=== PATIENT | male | born 1985 | race African-American/Black ===

== ENCOUNTER 2017-01-28 18:41 | Emergency (ER) | payer BC, OTHER ==
[2017-01-28 18:57] VITALS: BP 150/90; BMI 22.8
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
== END 2017-01-28 20:25 | disposition home or self-care (01) ==
LOC: ER 19:05
DX: M54.5 Low back pain (principal); V87.7XXA Person injured in collision between other specified motor vehicles (traffic), initial encounter
CPT/HCPCS: 72072; 72125; 99282; 99283

== ENCOUNTER 2017-02-14 16:23 | Emergency (ER) | payer SELFPAY ==
[2017-02-14 16:34] VITALS: BP 146/88; BMI 23.7
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
== END 2017-02-14 17:28 | disposition home or self-care (01) ==
LOC: ER 16:43
DX: T18.9XXA Foreign body of alimentary tract, part unspecified, initial encounter (principal)
CPT/HCPCS: 99281; 99282

== ENCOUNTER 2017-07-16 03:16 | Emergency (ER) | payer SELFPAY ==
[2017-07-16 03:31] VITALS: BP 158/94; BMI 23.7
--- NOTE | 2017-07-16 03:55 | DR.GENAD ---
HPI - PCP Primary Care Physician: DON - Complaint/Symptoms Chief Complaint Doctors Comments: Patient admits to stomach pain for three days associated with nausea. Denies fever or diarrhea. He also states that he has back pain mid low back. Chief Complaint:: ABD PAIN BACK PAIN Self Treatment fo Chief Complaint: ZANTAC - Source History Provided: Patient - Mode of Arrival Mode of Arrival: Ambulatory - Timing Onset of Chief Complaint: 07/16/17 PMH - PMH Past Medical History: Yes Past Medical History: Anxiety, Depression, GERD, Hypertension Past Surgical History: Yes Surgical History: Other - Family History History of Family Medical Conditions: Yes Family Medical History: Diabetes Mellitus, Cancer, [place], Hypertension - Social History Does patient currently use any type of tobacco product: Yes Have you used tobacco products in the last 12 months: Yes Type of Tobacco Use: Cigarettes Alcohol Use: None Do you use any recreational Drugs:: No Lives With: Alone Lives Where: Home - infectious screening In the last 2 months have you had wt loss of >10#?: NO Have you had fever, night sweats or hemotysis?: No Have you traveled outside the country in the last 6 months?: No Isolation: Standard ROS - Review of Systems Constitutional: No Symptoms Reported Eyes: No Symptoms Reported ENTM: No Symptoms Reported Respiratoy: No Symptoms Reported Cardiovascular: No Symptoms Reported Gastrointestinal/Abdominal: See HPI, Abdominal Pain Genitourinary: No Symptoms Reported Neurological: No Symptoms Reported Musculoskeletal: No Symptoms Reported Integumentary: No Symptoms Reported Hematologic/Lymphatic: No Symptoms Reported Endocrine: No Symptoms Reported Psychiatric: No Symptoms Reported All Other Systems: Reviewed and Negative PE - Vital Signs Vitals: Temperature 98.4 F Pulse Rate 68 Respiratory Rate 16 Blood Pressure 158/94 O2 Sat by Pulse Oximetry 100 - General Limitations: No Limitations General Appearance: Alert, In No Apparent Distress - Head Head Exam: Normal Inspection, Atraumatic - Eyes Eye exam: Normal Appearance, PERRL, EOMI - ENT ENT Exam: Normal Exam External Ear Exam: Normal External Inspection TM/Canal Exam: Bilateral Normal Nose Exam: Normal Nose Exam Mouth Exam: Normal Inspection Throat Exam: Normal Inspection - Neck Neck Exam: Normal Inspection, Full ROM - Chest Chest Inspection: Normal Inspection - Respiratory Respiratory Exam: Normal Lung Sounds Bilat Respiratory Exam: Bilateral Clear to Auscultation - Cardiovascular Cardiovascular Exam: Regular Rate, Normal Rhythm - Abdominal Exam Abdominal Exam: Normal Inspection, Tenderness Abdominal Tenderness: Diffuse - Extremities Extremities Exam: Normal Inspection, Full ROM - Back Back Exam: Normal Inspection, Full ROM - Neurologic Neurological Exam: Alert, Oriented X3, CN II-XII Intact - Psychiatric Psychiatric Exam: Normal Affect - Skin Skin Exam: Warm, Dry, Intact ROR - XRAY XRAY Interpreted by: Radiologist (Abdo: There is moderate constipation. The bowel gas pattern is otherwise normal. No free air or pneumatosis. No pathological soft tissue mass or calcification can be observed. The bony structures are grossly intact. Impression.Moderate constipation) - Diagnosis Discharge Problem: moderate constipation - Discharge Plan Condition: Stable - Follow ups/Referrals Follow ups/Referrals: NFD,None [Primary Care Provider] - 3 days - Instructions
[2017-07-16] MEDS ORDERED: PHENERGAN INJ 25 MG IV ONE (03:58)
[2017-07-16] MEDS ORDERED: TORADOL 30 MG VIAL IVP ONE (03:59)
[2017-07-16] MEDS ORDERED: NS 1000 ML 1,000 ML IV SCH (04:00)
[2017-07-16] MEDS ORDERED: TORADOL 30 MG VIAL ONE (04:02)
[2017-07-16] MEDS ORDERED: NS 1000 ML 1,000 ML ONE (04:02)
[2017-07-16] MEDS ORDERED: PHENERGAN INJ 25 MG ONE (04:02)
[2017-07-16 04:14] LABS: BASOPHILS % (AUTO) 0.7 % (0.2-1.0); EOSINOPHILS # (AUTO) 0.2 x10^3/uL (0.0-0.2); EOSINOPHILS % (AUTO) 2.7 % (0.9-2.9); HEMATOCRIT 40.7 % (42.0-54.0); HEMOGLOBIN 13.8 g/dL (13.5-18.0); LYMPHOCYTES # (AUTO) 1.4 X10^3/uL (1.3-2.9); MEAN CORPUSCULAR HEMOGLOBIN 29.5 pg (27.0-34.0); MEAN CORPUSCULAR HGB CONC 33.8 g/dL (33.0-35.0); MEAN CORPUSCULAR VOLUME 87.1 fL (80.0-100.0); MEAN PLATELET VOLUME 7.6 fL (7.4-11.0); MONOCYTES # (AUTO) 0.4 x10^3/uL (0.3-0.8); MONOCYTES % (AUTO) 5.9 % (0.0-13.0); NEUTROPHILS # (AUTO) 4.5 x10^3/uL (2.2-4.8); NEUTROPHILS % (AUTO) 68.7 % (42.0-75.0); PLATELET COUNT 251 X10^3/uL (150.0-450.0); RED BLOOD COUNT 4.68 X10^6/uL (4.7-6.0); RED CELL DISTRIBUTION WIDTH 13.5 % (11.6-16.5); WHITE BLOOD COUNT 6.5 X10^3/uL (3.6-10.0)
[2017-07-16 04:20] LABS: AMYLASE 69 Units/L (25-115); BLOOD UREA NITROGEN 8 mg/dL (7-18); CALCIUM 8.2 mg/dL (8.5-10.1); CARBON DIOXIDE 26.9 mmol/L (21-32); CHLORIDE 106 mmol/L (98-107); CREATININE 1.26 mg/dL (0.70-1.30); LIPASE 158 Units/L (73-393); SODIUM 143 mmol/L (136-145); eGFR BLACK RACES > 60 (>60); eGFR NON BLACK RACES > 60 (>60)
--- NOTE | 2017-07-16 04:33 | RAD ---
KUB Indication: Abdominal pain Comparison: None available Findings: There is moderate constipation. The bowel gas pattern is otherwise normal. No free air or pneumatosis . No pathological soft tissue mass or calcification can be observed. The bony structures are grossl y intact. IMPRESSION: Moderate constipation. Reported By:
[2017-07-16] MEDS ORDERED: K-DUR TAB 20 MEQ PO ONE ×2 (05:28→05:39)
== END 2017-07-16 05:45 | disposition home or self-care (01) ==
LOC: ER 03:16
DX: K59.09 Other constipation (principal)
CPT/HCPCS: 36415; 74000; 80048; 82150; 83690; 85025; 86140; 96365; 96374; 96375; 99283; A4222; J1885; J2550

== ENCOUNTER 2017-12-29 12:33 | Emergency (ER) | payer BC ==
[2017-12-29 12:36] VITALS: BP 140/78; BMI 21.1
[2017-12-29] MEDS ORDERED: NS 1000 ML 1,000 ML IV ONE (12:59)
[2017-12-29] MEDS ORDERED: TORADOL 30 MG VIAL IVP ONE (12:59)
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
[2017-12-29] MEDS ORDERED: NS 1000 ML 1,000 ML ONE (13:08)
[2017-12-29] MEDS ORDERED: TORADOL 30 MG VIAL ONE (13:08)
--- NOTE | 2017-12-29 13:30 | CT ---
HISTORY: Right flank pain,. Stomach running off since Thursday night. Study: CT abdomen and pelvis without IV or contrast Comparison: 09/16/2016. Technique: Multiple axial images of the abdomen and pelvis were obtained from the lung bases to the pubic symphy sis without the administration of IV or oral contrast. Coronal and sagittal images are also reviewed . Dose reduction techniques utilized automatic exposure control. Findings: The visualized portions of the lung bases are unremarkable. The liver, spleen, pancreas, kidneys, an d adrenal glands are unremarkable in their CT appearance. The gallbladder is unremarkable in its CT a ppearance. No significant mesenteric lymphadenopathy or stranding can be observed. No free fluid or free air is seen within the abdomen. No bowel wall thickening or bowel dilatation is present. The a ppendix is normal. There is an abundance of stool present throughout the colon. No evidence of divert iculosis is seen. The colon is unremarkable. Specifically, there is no diverticulosis noted within t he sigmoid colon. The urinary bladder is grossly unremarkable. The bony structures are grossly intac t. IMPRESSION: 1. Negative CT of the abdomen and pelvis. Reported By:
[2017-12-29 13:34] LABS: BASOPHILS # (AUTO) 0.1 X10^3/uL (0.0-0.1); BASOPHILS % (AUTO) 1.4 % (0.2-1.0); EOSINOPHILS % (AUTO) 0.3 % (0.9-2.9); HEMATOCRIT 50.9 % (42.0-54.0); HEMOGLOBIN 17.5 g/dL (13.5-18.0); LYMPHOCYTES # (AUTO) 1.7 X10^3/uL (1.3-2.9); LYMPHOCYTES % (AUTO) 22.6 % (21.0-51.0); MEAN CORPUSCULAR HEMOGLOBIN 29.2 pg (27.0-34.0); MEAN CORPUSCULAR HGB CONC 34.4 g/dL (33.0-35.0); MEAN CORPUSCULAR VOLUME 84.8 fL (80.0-100.0); MEAN PLATELET VOLUME 8.1 fL (7.4-11.0); MONOCYTES # (AUTO) 0.7 x10^3/uL (0.3-0.8); MONOCYTES % (AUTO) 9.7 % (0.0-13.0); NEUTROPHILS # (AUTO) 4.9 x10^3/uL (2.2-4.8); PLATELET COUNT 251 X10^3/uL (150.0-450.0); RED CELL DISTRIBUTION WIDTH 13.8 % (11.6-16.5); WHITE BLOOD COUNT 7.4 X10^3/uL (3.6-10.0)
[2017-12-29 13:42] LABS: ALANINE AMINOTRANSFERASE 58 Units/L (12-78); ALBUMIN 4.6 g/dL (3.4-5.0); ALKALINE PHOSPHATASE 113 Units/L (46-116); ASPARTATE AMINO TRANSFERASE 39 Units/L (15-37); BLOOD UREA NITROGEN 21 mg/dL (7-18); CALCIUM 8.7 mg/dL (8.5-10.1); CHLORIDE 100 mmol/L (98-107); CREATININE 1.22 mg/dL (0.70-1.30); SODIUM 138 mmol/L (136-145); TOTAL PROTEIN 8.3 g/dL (6.4-8.2); eGFR BLACK RACES > 60 (>60); eGFR NON BLACK RACES > 60 (>60)
[2017-12-29 13:56] LABS: BILIRUBIN,URINE NEGATIVE (NEGATIVE); BLOOD/HEMOGLOBIN,URINE 2+ (NEGATIVE); GLUCOSE, URINE NEGATIVE (NEGATIVE); KETONES,URINE 4+ (NEGATIVE); LEUKOCYTE ESTERASE ,URINE 1+ (NEGATIVE); NITRITES,URINE NEGATIVE (NEGATIVE); PROTEIN,URINE 2+ (NEGATIVE); UROBILINOGEN,URINE 2+ (NORMAL)
[2017-12-29 14:13] LABS: APPEARANCE,URINE SLIGHTLY HAZY (CLEAR); BACTERIA,URINE 1+ /HPF (NEGATIVE); COLOR,URINE DARK YELLOW (YELLOW); HYALINE CASTS, URINE FEW /LPF (NEGATIVE); MUCUS,URINE MANY /HPF (NEGATIVE); SQUAMOUS EPITHELIAL CELL,UR FEW /HPF (NEGATIVE)
== END 2017-12-29 14:57 | disposition home or self-care (01) ==
LOC: ER 12:39
DX: R19.7 Diarrhea, unspecified (principal); N39.0 Urinary tract infection, site not specified; R10.84 Generalized abdominal pain
CPT/HCPCS: 36415; 74176; 80053; 81001; 85025; 96365; 96374; 99282; 99283; A4222; J1885

== ENCOUNTER 2023-12-25 03:08 | Observation (INO) ==
[2023-12-25 04:06] LABS: STREP A BY PCR NOT DETECTED (NOT DETECT)
--- NOTE | 2023-12-25 04:24 | DR.SOBA ---
HPI Time Seen Time Seen by Provider: 12/25/23 03:35 Complaints Chief Complaint Doctors Comments: Patient was evaluated in the ED yesterday and was diagnosed with pneumonia. Patient has had a productive cough x 1 week and was given an Rx for doxycycline 100mg po bid, prednisone,tessalon perles. Silverio sloan did not get his prescriptions filled and presents because his symptoms have persisted. Patient's CXR from 12/24/2023 revealed bilateral lower lobe pneumonia. Patient states he has had subjective fever. Patient denies:sob,chest pain,abdl pain,wheezing,h/o asthma,h/o COPD. Chief Complaint:: PT WAS SEEN IN ER YESTERDAY FOR SOB,HEADACHE PT WAS GIVEN ANTIBIOTICS, BUT STATES HE CANNOT AFFORD THEM. STATES HE JUST FEELS WORSE AND ITS GETTING HARDER TO BREATHE. 02 SAT IN TRIAGE 96 AND PT IN NO DISTRESS COVID-19 Coronavirus risk:travel/contact w/high risk person: No Source History Provided: Patient Mode of Arrival Mode of Arrival: Ambulatory Timing Onset of Chief Complaint: 12/24/23 PMH PMH Past Medical History: Yes Past Medical History: Anxiety, Asthma, Depression, Diabetes, Dyslipidemia, Migraines, Hypertension, Kidney Stones and Schizophrenia Past Surgical History: Yes Surgical History: Ortho Surgery Family History History of Family Medical Conditions: No Family Medical History: Diabetes Mellitus, Cancer, [place], Coronary Artery Disease and Hypertension Social History Do you use any recreational Drugs:: No Travel Risk Coronavirus risk:travel/contact w/high risk person: No Infectious screening Have you traveled outside the country in the last 6 months?: No Isolation: Standard ROS Review of Systems Constitutional: Malaise Eyes: No Symptoms Reported ENTM: No Symptoms Reported Respiratoy: Productive Cough Cardiovascular: Palpitations Gastrointestinal/Abdominal: No Symptoms Reported Genitourinary: No Symptoms Reported Neurological: No Symptoms Reported Musculoskeletal: No Symptoms Reported Integumentary: No Symptoms Reported Hematologic/Lymphatic: No Symptoms Reported Endocrine: No Symptoms Reported Psychiatric: No Symptoms Reported All Other Systems: Reviewed and Negative PE Vital Signs Vitals: Vital Signs Temperature 98.2 F Temperature 98.6 F Pulse Rate 110 Respiratory Rate 20 Respiratory Rate 22 Respiratory Rate 24 Blood Pressure [Right Arm] 114/70 Blood Pressure 165/105 O2 Sat by Pulse Oximetry 96 O2 Sat by Pulse Oximetry 96 General Limitations: No Limitations General Appearance: Alert and In No Apparent Distress Head Head Exam: Normal Inspection Eyes Eye exam: Normal Appearance ENT ENT Exam: Normal Exam Neck Neck Exam: Normal Inspection Chest Chest Inspection: Normal Inspection Respiratory Respiratory Exam: Normal Lung Sounds Bilat Respiratory Exam: Bilateral: Decreased Breath Sounds Cardiovascular Cardiovascular Exam: Regular Rate and Normal Rhythm Abdominal Exam Abdominal Exam: Normal Inspection, Normal Bowel Sounds and Soft Extremities Extremities Exam: Normal Inspection Back Back Exam: Normal Inspection Neurologic Neurological Exam: Alert and Oriented X3 Psychiatric Psychiatric Exam: Normal Affect and Normal Mood Skin Skin Exam: Warm, Dry, Intact and Normal Color MDM Differential Diagnosis Differential Diagnosis: Bronchitis and Pneumonia Differential Diagnosis Comment:: DDx: electrolyte disorder COURSE Treatment Treatment: Patient was brought to an exam room. Iv access was initiated and labs and tests were ordered. Patient complained of a headache and was given Tylenol 1 g p.o., and he was tachycardic and was given normal saline 500 mL IV bolus. Patient was also given Zofran 400 mg IV for nausea. Patient's labs and tests were reviewed: His CMP was stable, WBC 11.9, COVID panel is negative, strep is negative, ABG on room air: PH7.45/PC02 39/P02 49/HC03 27.1/02SAT 86%. Patient was placed on 2 L O2 nasal cannula for his hypoxemia, he was given prednisone 20 mg p.o., and Tessalon Perles 200 mg p.o. Discussed case with Dr. Romano. He would like a CTA chest ordered, Zosyn and azithromycin administered for the pneumonia, Tessalon Perles will be continued, and patient will receive Solu-Medrol 80 mg IV every 8. Urinalysis was obtained, urine culture is pending and urine drug screen is pending. Patient will be admitted ops to a telemetry floor. Patient had a blood pressure of 165/101 and cannot remember his clonidine dose. Dr. Romano stated that he wanted to observe patient's blood pressure during the admission.VS at time of Admission: Temp 98.2/BP 114/70/HR 69/02 sat 94-96% (on 2 LNC). Patient has cely stable in the ED. ROR Labs Reviewed 12/25/23 04:41 12/25/23 05:16 Laboratory: WBC 11.9 X10^3/uL (3.6-10.0) H 12/25/23 04:41 RBC 5.65 X10^6/uL (4.7-6.0) 12/25/23 04:41 Hgb 16.4 g/dL (13.5-18.0) 12/25/23 04:41 Hct 49.7 % (42.0-54.0) 12/25/23 04:41 MCV 87.9 fL (80.0-100.0) 12/25/23 04:41 MCH 28.9 pg (27.0-34.0) 12/25/23 04:41 MCHC 32.9 g/dL (33.0-35.0) L 12/25/23 04:41 RDW 15.5 % (11.6-16.5) 12/25/23 04:41 Plt Count 314 X10^3/uL (150.0-450.0) 12/25/23 04:41 MPV 9.1 fL (7.4-11.0) 12/25/23 04:41 Neut % (Auto) 71.2 % (42.0-75.0) 12/25/23 04:41 Lymph % (Auto) 19.4 % (21.0-51.0) L 12/25/23 04:41 Brantley % (Auto) 6.0 % (0.0-13.0) 12/25/23 04:41 Eos % (Auto) 2.2 % (0.9-2.9) 12/25/23 04:41 Baso % (Auto) 1.2 % (0.2-1.0) H 12/25/23 04:41 Neut # (Auto) 8.5 x10^3/uL (2.2-4.8) H 12/25/23 04:41 Lymph # (Auto) 2.3 X10^3/uL (1.3-2.9) 12/25/23 04:41 Brantley # (Auto) 0.7 x10^3/uL (0.3-0.8) 12/25/23 04:41 Eos # (Auto) 0.3 x10^3/uL (0.0-0.2) H 12/25/23 04:41 Baso # (Auto) 0.1 X10^3/uL (0.0-0.1) 12/25/23 04:41 Absolute Nucleated RBC 0.0 /100WBC 12/25/23 04:41 Sample Site Lr 12/25/23 06:40 ABG pH 7.450 (7.35-7.45) 12/25/23 06:40 ABG pCO2 39.0 mmHg (35.0-45.0) 12/25/23 06:40 ABG pO2 49.0 mmHg (80.0-100.0) L* 12/25/23 06:40 ABG HCO3 27.1 mmol/L (22-26) H 12/25/23 06:40 ABG O2 Saturation 86.0 % (90-100) L 12/25/23 06:40 ABG Base Excess 3.0 mmol/L (-2.0-2.0) H 12/25/23 06:40 Tristan Test Pos 12/25/23 06:40 A-a Gradient 52.0 mmHg 12/25/23 06:40 FiO2 21.0 12/25/23 06:40 Blood Gas Comments John well ae 12/25/23 06:40 Sodium 142 mmol/L (136-145) 12/25/23 05:16 Corrected Sodium 143 mmol/L (136-145) 12/25/23 05:16 Potassium 3.7 mmol/L (3.5-5.1) 12/25/23 05:16 Chloride 106 mmol/L (98-107) 12/25/23 05:16 Carbon Dioxide 23.2 mmol/L (21-32) 12/25/23 05:16 BUN 9 mg/dL (7-18) 12/25/23 05:16 Creatinine 1.07 mg/dL (0.70-1.30) 12/25/23 05:16 Est GFR (MDRD) Af Amer > 60 (>60) 12/25/23 05:16 Est GFR (MDRD) Non-Af > 60 (>60) 12/25/23 05:16 Glucose 123 mg/dL (65-99) H 12/25/23 05:16 Calcium 8.2 mg/dL (8.5-10.1) L 12/25/23 05:16 Corrected Calcium TNP 12/25/23 05:16 Total Bilirubin 0.60 mg/dL (0.2-1.0) 12/25/23 05:16 AST 31 Units/L (15-37) 12/25/23 05:16 ALT 77 Units/L (12-78) 12/25/23 05:16 Alkaline Phosphatase 109 Units/L (46-116) 12/25/23 05:16 Total Protein 6.9 g/dL (6.4-8.2) 12/25/23 05:16 Albumin 3.6 g/dL (3.4-5.0) 12/25/23 05:16 Globulin 3.3 g/dL (2.5-4.5) 12/25/23 05:16 Albumin/Globulin Ratio 1.1 Ratio (1.1-2.1) 12/25/23 05:16 SARS-CoV-2 (PCR) Negative (NEGATIVE) 12/25/23 03:33 Influenza Type A (PCR) Negative (NEGATIVE) 12/25/23 03:33 Influenza Type B (PCR) Negative (NEGATIVE) 12/25/23 03:33 RSV (PCR) Negative (NEGATIVE) 12/25/23 03:33 S. pyogenes (TEM-PCR) Not detected (NOT DETECT) 12/25/23 03:33 Opioid Opioid Risk Tool Age (Josias box if 16-45): Yes History of Preadolescent Sexual Abuse: No Total: 1 Total Score Risk Category: Low Risk Copyright: Martinez MARTINEZ predicting aberrant behaviors Discharge Plan Diagnosis Discharge Problem: Pneumonia, Hypoxemia, Malignant hypertension, Bilateral pleural effusion Discharge Plan Patient Disposition: 09 ADMITTED INPATIENT Condition: Stable Prescriptions: No Action amoxicillin 875 mg tablet 875 mg PO BID Qty: 20 0RF benzonatate 200 mg capsule 200 mg PO TID PRN (Reason: cough) Qty: 20 0RF doxycycline hyclate 100 mg capsule 100 mg PO BID 10 Days Qty: 20 0RF prednisone 20 mg tablet 20 mg PO BID 5 Days Qty: 10 0RF benzonatate 200 mg capsule 200 mg PO TID PRN (Reason: cough) 7 Days Qty: 20 0RF Health Concerns: Post Hospitalization: new medications and changes needed to prevent readmission or further decline. Pt educated and given instructions on all concerns. Plan of Treatment: Continue with present treatment and follow up plan. Pt is to keep follow up appointment as instructed and take medications as ordered. Orders to Discharge Patient Discharge Orders: Transfer (Routine); Ordered 12/25/23 Ordered By: Louisa Mata Follow ups/Referrals Follow ups/Referrals: NFD,None [Primary Care Provider] - 3 days Instructions Stand Alone Forms: Post Hospital Follow Up Care
[2023-12-25] MEDS ORDERED: TYLENOL 500 MG TAB EXTRA STRENGTH PO ONE (04:31)
[2023-12-25] MEDS ORDERED: NS 500 ML IV 500 ML IV ONE (04:37)
[2023-12-25] MEDS: TYLENOL 500 MG TAB EXTRA STRENGTH PO ONE (05:06)
[2023-12-25] MEDS: NS 500 ML IV 500 ML IV ONE (05:06)
[2023-12-25 05:07] LABS: BASOPHILS # (AUTO) 0.1 X10^3/uL (0.0-0.1); BASOPHILS % (AUTO) 1.2 % (0.2-1.0); EOSINOPHILS # (AUTO) 0.3 x10^3/uL (0.0-0.2); EOSINOPHILS % (AUTO) 2.2 % (0.9-2.9); HEMATOCRIT 49.7 % (42.0-54.0); HEMOGLOBIN 16.4 g/dL (13.5-18.0); LYMPHOCYTES # (AUTO) 2.3 X10^3/uL (1.3-2.9); LYMPHOCYTES % (AUTO) 19.4 % (21.0-51.0); MEAN CORPUSCULAR HEMOGLOBIN 28.9 pg (27.0-34.0); MEAN CORPUSCULAR HGB CONC 32.9 g/dL (33.0-35.0); MEAN CORPUSCULAR VOLUME 87.9 fL (80.0-100.0); MEAN PLATELET VOLUME 9.1 fL (7.4-11.0); MONOCYTES # (AUTO) 0.7 x10^3/uL (0.3-0.8); NEUTROPHILS # (AUTO) 8.5 x10^3/uL (2.2-4.8); NEUTROPHILS % (AUTO) 71.2 % (42.0-75.0); PLATELET COUNT 314 X10^3/uL (150.0-450.0); RED BLOOD COUNT 5.65 X10^6/uL (4.7-6.0); RED CELL DISTRIBUTION WIDTH 15.5 % (11.6-16.5); WHITE BLOOD COUNT 11.9 X10^3/uL (3.6-10.0)
[2023-12-25] MEDS ORDERED: ZOFRAN INJ 4 MG VIAL ONE (05:09)
[2023-12-25] MEDS: ZOFRAN INJ 4 MG VIAL IVP ONE (05:17)
[2023-12-25 05:35] LABS: ALANINE AMINOTRANSFERASE 77 Units/L (12-78); ALBUMIN 3.6 g/dL (3.4-5.0); ALKALINE PHOSPHATASE 109 Units/L (46-116); ASPARTATE AMINO TRANSFERASE 31 Units/L (15-37); BLOOD UREA NITROGEN 9 mg/dL (7-18); CALCIUM 8.2 mg/dL (8.5-10.1); CARBON DIOXIDE 23.2 mmol/L (21-32); CHLORIDE 106 mmol/L (98-107); COR NA(FOR HYPERGLY) 143 mmol/L (136-145); CREATININE 1.07 mg/dL (0.70-1.30); GLUCOSE 123 mg/dL (65-99); POTASSIUM 3.7 mmol/L (3.5-5.1); SODIUM 142 mmol/L (136-145); TOTAL PROTEIN 6.9 g/dL (6.4-8.2); eGFR NON BLACK RACES > 60 (>60)
[2023-12-25] MEDS ORDERED: NS 100 ML IV 100 ML ONE (05:51)
[2023-12-25] MEDS ORDERED: ROCEPHIN VIAL 2 GRAMS ONE (05:51)
[2023-12-25] MEDS: ROCEPHIN VIAL 2 GRAMS 2 G in NS 100 ML IV 100 ML IV ONE (05:56)
[2023-12-25] MEDS ORDERED: DUONEB 0.5 MG/3 MG (3 mL) NEB ONE (06:45)
[2023-12-25 06:47] LABS: ABG ALLEN TEST POS; ABG HCO3 27.1 mmol/L (22-26)
[2023-12-25] MEDS: DUONEB 0.5 MG/3 MG (3 mL) NEB ONE (06:59)
[2023-12-25] MEDS ORDERED: TESSALON PERLES PO ONE (07:45)
[2023-12-25] MEDS ORDERED: PREDNISONE TAB 20 MG PO ONE (07:45)
[2023-12-25] MEDS: PREDNISONE TAB 20 MG PO ONE (07:51)
[2023-12-25] MEDS: TESSALON PERLES PO ONE (07:52)
[2023-12-25] MEDS: OMNIPAQUE 350 mg/mL 100 mL BTL 100 ML ONE (08:14)
--- NOTE | 2023-12-25 09:00 | CT ---
EXAM:CTA, CHESTHISTORY:HYPOXIACOMPARISON:Chest radiograph dated 12/24 2019.TECHNIQUE:Multiple axial images of the chest were obtained from the thoracic inlet to the upper abdomen after the administration of IV contrast. 3D reconstructions utilizing axial MIPS imaging was performed and reviewed. Dose reduction techniques including Automated Exposure Control (AEC) and adjustment of mA and kV were utilized.FINDINGS:There are no filling defects through the segmental pulmonary artery level bilaterally to suggest acute pulmonary thromboembolic disease. The main pulmonary artery is normal in size. The heart is normal in size with left ventricular prominence. There is no pericardial effusion. The thoracic aorta and included portions of the upper abdominal aorta are normal in contour without aneurysmal dilatation or periaortic stranding. The included portions of the upper abdomen are grossly unremarkable. There are prominent mediastinal and bilateral hilar lymph nodes which may be reactive. There is no axillary lymphadenopathy identified. The included portions of the thyroid are grossly unremarkable. Evaluation of the lung parenchyma demonstrates scattered ground-glass opacities and associated consolidative changes throughout both lungs. There are small bilateral pleural effusions, [id number]. The bony thorax is grossly intact.IMPRESSION:1. No acute pulmonary thromboembolic disease through the segmental pulmonary artery level bilaterally.2. Bilateral ground-glass opacities and associated consolidative changes consistent with pneumonia, possibly viral and/or atypical.3. Small bilateral pleural effusions.4. Probable reactive mediastinal and bilateral hilar lymph nodes.5. Left ventricular prominence of the heart.THIS IS AN ELECTRONICALLY VERIFIED FINAL REPORT12/25/2023 8:57 AM - Electronically signed by Rolly Guido MD
--- NOTE | 2023-12-25 09:30 | DR.SOBA ---
HPI Time Seen Time Seen by Provider: 12/25/23 03:35 Complaints Chief Complaint:: PT WAS SEEN IN ER YESTERDAY FOR SOB,HEADACHE PT WAS GIVEN ANTIBIOTICS, BUT STATES HE CANNOT AFFORD THEM. STATES HE JUST FEELS WORSE AND ITS GETTING HARDER TO BREATHE. 02 SAT IN TRIAGE 96 AND PT IN NO DISTRESS COVID-19 Coronavirus risk:travel/contact w/high risk person: No Source History Provided: Patient Mode of Arrival Mode of Arrival: Ambulatory Timing Onset of Chief Complaint: 12/24/23 PMH PMH Past Medical History: Yes Past Medical History: Anxiety, Asthma, Depression, Diabetes, Dyslipidemia, Migraines, Hypertension, Kidney Stones and Schizophrenia Past Surgical History: Yes Surgical History: Ortho Surgery Family History History of Family Medical Conditions: No Family Medical History: Diabetes Mellitus, Cancer, [place], Coronary Artery Disease and Hypertension Social History Do you use any recreational Drugs:: No Travel Risk Coronavirus risk:travel/contact w/high risk person: No Infectious screening Have you traveled outside the country in the last 6 months?: No Isolation: Standard PE Vital Signs Vitals: Vital Signs Temperature 98.2 F Temperature 98.6 F Pulse Rate 110 Respiratory Rate 20 Respiratory Rate 22 Respiratory Rate 24 Blood Pressure [Right Arm] 114/70 Blood Pressure 165/105 O2 Sat by Pulse Oximetry 96 O2 Sat by Pulse Oximetry 96 ROR Labs Reviewed 12/25/23 04:41 12/25/23 05:16 Laboratory: WBC 11.9 X10^3/uL (3.6-10.0) H 12/25/23 04:41 RBC 5.65 X10^6/uL (4.7-6.0) 12/25/23 04:41 Hgb 16.4 g/dL (13.5-18.0) 12/25/23 04:41 Hct 49.7 % (42.0-54.0) 12/25/23 04:41 MCV 87.9 fL (80.0-100.0) 12/25/23 04:41 MCH 28.9 pg (27.0-34.0) 12/25/23 04:41 MCHC 32.9 g/dL (33.0-35.0) L 12/25/23 04:41 RDW 15.5 % (11.6-16.5) 12/25/23 04:41 Plt Count 314 X10^3/uL (150.0-450.0) 12/25/23 04:41 MPV 9.1 fL (7.4-11.0) 12/25/23 04:41 Neut % (Auto) 71.2 % (42.0-75.0) 12/25/23 04:41 Lymph % (Auto) 19.4 % (21.0-51.0) L 12/25/23 04:41 [place] % (Auto) 6.0 % (0.0-13.0) 12/25/23 04:41 Eos % (Auto) 2.2 % (0.9-2.9) 12/25/23 04:41 Baso % (Auto) 1.2 % (0.2-1.0) H 12/25/23 04:41 Neut # (Auto) 8.5 x10^3/uL (2.2-4.8) H 12/25/23 04:41 Lymph # (Auto) 2.3 X10^3/uL (1.3-2.9) 12/25/23 04:41 [place] # (Auto) 0.7 x10^3/uL (0.3-0.8) 12/25/23 04:41 Eos # (Auto) 0.3 x10^3/uL (0.0-0.2) H 12/25/23 04:41 Baso # (Auto) 0.1 X10^3/uL (0.0-0.1) 12/25/23 04:41 Absolute Nucleated RBC 0.0 /100WBC 12/25/23 04:41 Sample Site Lr 12/25/23 06:40 ABG pH 7.450 (7.35-7.45) 12/25/23 06:40 ABG pCO2 39.0 mmHg (35.0-45.0) 12/25/23 06:40 ABG pO2 49.0 mmHg (80.0-100.0) L* 12/25/23 06:40 ABG HCO3 27.1 mmol/L (22-26) H 12/25/23 06:40 ABG O2 Saturation 86.0 % (90-100) L 12/25/23 06:40 ABG Base Excess 3.0 mmol/L (-2.0-2.0) H 12/25/23 06:40 Tristan Test Pos 12/25/23 06:40 A-a Gradient 52.0 mmHg 12/25/23 06:40 FiO2 21.0 12/25/23 06:40 Blood Gas Comments John well ae 12/25/23 06:40 Sodium 142 mmol/L (136-145) 12/25/23 05:16 Corrected Sodium 143 mmol/L (136-145) 12/25/23 05:16 Potassium 3.7 mmol/L (3.5-5.1) 12/25/23 05:16 Chloride 106 mmol/L (98-107) 12/25/23 05:16 Carbon Dioxide 23.2 mmol/L (21-32) 12/25/23 05:16 BUN 9 mg/dL (7-18) 12/25/23 05:16 Creatinine 1.07 mg/dL (0.70-1.30) 12/25/23 05:16 Est GFR (MDRD) Af Amer > 60 (>60) 12/25/23 05:16 Est GFR (MDRD) Non-Af > 60 (>60) 12/25/23 05:16 Glucose 123 mg/dL (65-99) H 12/25/23 05:16 Calcium 8.2 mg/dL (8.5-10.1) L 12/25/23 05:16 Corrected Calcium TNP 12/25/23 05:16 Total Bilirubin 0.60 mg/dL (0.2-1.0) 12/25/23 05:16 AST 31 Units/L (15-37) 12/25/23 05:16 ALT 77 Units/L (12-78) 12/25/23 05:16 Alkaline Phosphatase 109 Units/L (46-116) 12/25/23 05:16 Total Protein 6.9 g/dL (6.4-8.2) 12/25/23 05:16 Albumin 3.6 g/dL (3.4-5.0) 12/25/23 05:16 Globulin 3.3 g/dL (2.5-4.5) 12/25/23 05:16 Albumin/Globulin Ratio 1.1 Ratio (1.1-2.1) 12/25/23 05:16 SARS-CoV-2 (PCR) Negative (NEGATIVE) 12/25/23 03:33 Influenza Type A (PCR) Negative (NEGATIVE) 12/25/23 03:33 Influenza Type B (PCR) Negative (NEGATIVE) 12/25/23 03:33 RSV (PCR) Negative (NEGATIVE) 12/25/23 03:33 S. pyogenes (TEM-PCR) Not detected (NOT DETECT) 12/25/23 03:33 Opioid Opioid Risk Tool Age (Josias box if 16-45): Yes History of Preadolescent Sexual Abuse: No Total: 1 Total Score Risk Category: Low Risk Copyright: Martinez MARTINEZ predicting aberrant behaviors Discharge Plan Diagnosis Discharge Problem: Pneumonia, Hypoxemia, Malignant hypertension, Bilateral pleural effusion Discharge Plan Patient Disposition: ADMITTED INPATIENT Condition: Stable Prescriptions: No Action amoxicillin 875 mg tablet 875 mg PO BID Qty: 20 0RF benzonatate 200 mg capsule 200 mg PO TID PRN (Reason: cough) Qty: 20 0RF doxycycline hyclate 100 mg capsule 100 mg PO BID 10 Days Qty: 20 0RF prednisone 20 mg tablet 20 mg PO BID 5 Days Qty: 10 0RF benzonatate 200 mg capsule 200 mg PO TID PRN (Reason: cough) 7 Days Qty: 20 0RF Health Concerns: Post Hospitalization: new medications and changes needed to prevent readmission or further decline. Pt educated and given instructions on all concerns. Plan of Treatment: Continue with present treatment and follow up plan. Pt is to keep follow up appointment as instructed and take medications as ordered. Orders to Discharge Patient Discharge Orders: Transfer (Routine); Ordered 12/25/23 Ordered By: Louisa Mata Follow ups/Referrals Follow ups/Referrals: NFD,None [Primary Care Provider] - 3 days Instructions Stand Alone Forms: Post Hospital Follow Up Care
[2023-12-25] MEDS ORDERED: TESSALON PERLES PO PRN (10:04)
[2023-12-25] MEDS ORDERED: ZITHROMAX INJ 500 MG VIAL IV ONE (10:22)
[2023-12-25] MEDS ORDERED: NS 250 ML IV 250 ML IV ONE (10:24)
[2023-12-25 10:37] VITALS: BMI 29.2
[2023-12-25] MEDS: ZITHROMAX INJ 500 MG VIAL 500 MG in NS 250 ML IV 250 ML IV SCH (10:59)
[2023-12-25] MEDS: NS 250 ML IV 0 ML IV ONE (11:03)
[2023-12-25] MEDS: PROTONIX INJ 40 MG VIAL IVP SCH (11:06)
[2023-12-25] MEDS: ROBITUSSIN DM PO PRN (11:10)
[2023-12-25] MEDS: NS 1,000 ML IV 1,000 ML IV SCH (11:20)
[2023-12-25 11:56] LABS: BILIRUBIN,URINE NEGATIVE (NEGATIVE); BLOOD/HEMOGLOBIN,URINE NEGATIVE (NEGATIVE); GLUCOSE, URINE NEGATIVE (NEGATIVE); KETONES,URINE NEGATIVE (NEGATIVE); LEUKOCYTE ESTERASE ,URINE NEGATIVE (NEGATIVE); NITRITES,URINE NEGATIVE (NEGATIVE); PROTEIN,URINE 1+ (NEGATIVE); UROBILINOGEN,URINE NORMAL (NORMAL)
[2023-12-25] MEDS: ROBITUSSIN (PLAIN) PO SCH (11:59)
[2023-12-25 12:08] LABS: APPEARANCE,URINE CLEAR (CLEAR); COLOR,URINE PALE YELLOW (YELLOW)
[2023-12-25 12:09] LABS: BACTERIA,URINE TRACE /HPF (NEGATIVE); RBC,URINE 0-2 /HPF (0-3); SQUAMOUS EPITHELIAL CELL,UR NEGATIVE /HPF (NEGATIVE)
[2023-12-25] MEDS: NovoLIN R (or HumuLIN R) SUBCUT PRN (12:25)
[2023-12-25] MEDS: XOPENEX 1.25 MG/3 ML NEBULE NEB SCH (13:20)
[2023-12-25] MEDS: SOLU-Medrol 40 MG VIAL IVP SCH (13:49)
[2023-12-25] MEDS: ZOSYN VIAL 3.375 GRAMS 3.375 G in NS 100 ML IV 100 ML IV SCH (13:49)
[2023-12-25] MEDS: TYLENOL 500 MG TAB EXTRA STRENGTH PO PRN (13:51)
--- NOTE | 2023-12-25 16:38 | DR.GENAD ---
HPI Time Seen Time Seen by Provider: 12/25/23 03:35 PCP Primary Care Physician: None Complaint/Symptoms Chief Complaint Doctors Comments: 38y/o male presents with productive cough, shortness of breath. Has been ill past 2-3 weeks, was treated with amoxicillin, without help. Seen yesterday in the ER, diagnosed with pneumonia. Was unable to fill scripts, returned to the ER with worsening cough, dyspnea, body aches. Running subjective fever. Having some dry heaving, burning sensation in chest. + h/o PUD in the past. Tylenol not helping headaches, aches. Short of breath worse with coughing, exertion. Chief Complaint:: PT WAS SEEN IN ER YESTERDAY FOR SOB,HEADACHE PT WAS GIVEN ANTIBIOTICS, BUT STATES HE CANNOT AFFORD THEM. STATES HE JUST FEELS WORSE AND ITS GETTING HARDER TO BREATHE. 02 SAT IN TRIAGE 96 AND PT IN NO DISTRESS COVID-19 Coronavirus risk:travel/contact w/high risk person: No Has patient experienced Coronavirus symptoms: No Coronavirus symptoms experienced: Coughing and Shortness of Breath Nurses notes reviewed Nurses Notes Review: Yes Source History Provided: Patient Mode of Arrival Mode of Arrival: Ambulatory Timing Onset of Chief Complaint: 12/24/23 PMH PMH Past Medical History: Yes Past Medical History: Anxiety, Asthma, Depression, Diabetes, Dyslipidemia, Migraines, Hypertension, Kidney Stones and Schizophrenia Past Surgical History: No Surgical History: Ortho Surgery Family History History of Family Medical Conditions: No Family Medical History: Diabetes Mellitus, Cancer, Heart Failure and Hypertension Social History Does patient currently use any type of tobacco product: No Have you used tobacco products in the last 12 months: No Type of Tobacco Use: Cigarettes How many years tobacco product used: 20 Does any household member use tobacco: Yes Alcohol Use: Occasionally Do you use any recreational Drugs:: No Travel Risk Coronavirus risk:travel/contact w/high risk person: No Has patient experienced Coronavirus symptoms: No Coronavirus symptoms experienced: Coughing and Shortness of Breath Infectious screening Have you traveled outside the country in the last 6 months?: No Isolation: Standard ROS Review of Systems Constitutional: Fever and Weakness Eyes: No Symptoms Reported ENTM: Nose Congestion Respiratoy: Productive Cough and Short of Breath Cardiovascular: No Symptoms Reported Gastrointestinal/Abdominal: Abdominal Pain and Nausea Genitourinary: No Symptoms Reported Neurological: No Symptoms Reported Musculoskeletal: Muscle Pain Integumentary: No Symptoms Reported Hematologic/Lymphatic: No Symptoms Reported Endocrine: No Symptoms Reported Psychiatric: No Symptoms Reported All Other Systems: Reviewed and Negative PE General Limitations: No Limitations General Appearance: Alert and In No Apparent Distress Eyes Eye exam: PERRL and EOMI ENT ENT Exam: Normal Exam and Mucous Membranes Moist Nose Exam: Normal Nose Exam Throat Exam: Normal Inspection Neck Neck Exam: Normal Inspection Chest Chest Inspection: Normal Inspection Respiratory Respiratory Exam: Normal Lung Sounds Bilat Cardiovascular Cardiovascular Exam: Regular Rate, Normal Rhythm and Normal Heart Sounds Abdominal Exam Abdominal Exam: Normal Bowel Sounds, Soft and Tenderness (epigastric) Extremities Extremities Exam: Normal Inspection Neurologic Neurological Exam: Alert and Oriented X3 Skin Skin Exam: Warm and Dry COURSE Treatment Treatment: 38 y/o male with bilateral pneumonia, hypoxia. Doing better on O2. Given IV antibiotics, IV steroids. Will add IV protonix for his reflux, h/o PUD. ROR Labs Reviewed 12/28/23 05:33 12/28/23 05:33 Laboratory: 12/25/23 04:56 Blood Blood Culture - Preliminary 12/25/23 04:41 Blood Blood Culture - Preliminary WBC 11.9 X10^3/uL (3.6-10.0) H 12/25/23 04:41 RBC 5.65 X10^6/uL (4.7-6.0) 12/25/23 04:41 Hgb 16.4 g/dL (13.5-18.0) 12/25/23 04:41 Hct 49.7 % (42.0-54.0) 12/25/23 04:41 MCV 87.9 fL (80.0-100.0) 12/25/23 04:41 MCH 28.9 pg (27.0-34.0) 12/25/23 04:41 MCHC 32.9 g/dL (33.0-35.0) L 12/25/23 04:41 RDW 15.5 % (11.6-16.5) 12/25/23 04:41 Plt Count 314 X10^3/uL (150.0-450.0) 12/25/23 04:41 MPV 9.1 fL (7.4-11.0) 12/25/23 04:41 Neut % (Auto) 71.2 % (42.0-75.0) 12/25/23 04:41 Lymph % (Auto) 19.4 % (21.0-51.0) L 12/25/23 04:41 Cassia % (Auto) 6.0 % (0.0-13.0) 12/25/23 04:41 Eos % (Auto) 2.2 % (0.9-2.9) 12/25/23 04:41 Baso % (Auto) 1.2 % (0.2-1.0) H 12/25/23 04:41 Neut # (Auto) 8.5 x10^3/uL (2.2-4.8) H 12/25/23 04:41 Lymph # (Auto) 2.3 X10^3/uL (1.3-2.9) 12/25/23 04:41 Cassia # (Auto) 0.7 x10^3/uL (0.3-0.8) 12/25/23 04:41 Eos # (Auto) 0.3 x10^3/uL (0.0-0.2) H 12/25/23 04:41 Baso # (Auto) 0.1 X10^3/uL (0.0-0.1) 12/25/23 04:41 Absolute Nucleated RBC 0.0 /100WBC 12/25/23 04:41 Sample Site Lr 12/25/23 06:40 ABG pH 7.450 (7.35-7.45) 12/25/23 06:40 ABG pCO2 39.0 mmHg (35.0-45.0) 12/25/23 06:40 ABG pO2 49.0 mmHg (80.0-100.0) L* 12/25/23 06:40 ABG HCO3 27.1 mmol/L (22-26) H 12/25/23 06:40 ABG O2 Saturation 86.0 % (90-100) L 12/25/23 06:40 ABG Base Excess 3.0 mmol/L (-2.0-2.0) H 12/25/23 06:40 Tristan Test Pos 12/25/23 06:40 A-a Gradient 52.0 mmHg 12/25/23 06:40 FiO2 21.0 12/25/23 06:40 Blood Gas Comments John well ae 12/25/23 06:40 Sodium 142 mmol/L (136-145) 12/25/23 05:16 Corrected Sodium 143 mmol/L (136-145) 12/25/23 05:16 Potassium 3.7 mmol/L (3.5-5.1) 12/25/23 05:16 Chloride 106 mmol/L (98-107) 12/25/23 05:16 Carbon Dioxide 23.2 mmol/L (21-32) 12/25/23 05:16 BUN 9 mg/dL (7-18) 12/25/23 05:16 Creatinine 1.07 mg/dL (0.70-1.30) 12/25/23 05:16 Est GFR (MDRD) Af Amer > 60 (>60) 12/25/23 05:16 Est GFR (MDRD) Non-Af > 60 (>60) 12/25/23 05:16 Glucose 123 mg/dL (65-99) H 12/25/23 05:16 Calcium 8.2 mg/dL (8.5-10.1) L 12/25/23 05:16 Corrected Calcium TNP 12/25/23 05:16 Total Bilirubin 0.60 mg/dL (0.2-1.0) 12/25/23 05:16 AST 31 Units/L (15-37) 12/25/23 05:16 ALT 77 Units/L (12-78) 12/25/23 05:16 Alkaline Phosphatase 109 Units/L (46-116) 12/25/23 05:16 Total Protein 6.9 g/dL (6.4-8.2) 12/25/23 05:16 Albumin 3.6 g/dL (3.4-5.0) 12/25/23 05:16 Globulin 3.3 g/dL (2.5-4.5) 12/25/23 05:16 Albumin/Globulin Ratio 1.1 Ratio (1.1-2.1) 12/25/23 05:16 SARS-CoV-2 (PCR) Negative (NEGATIVE) 12/25/23 03:33 Influenza Type A (PCR) Negative (NEGATIVE) 12/25/23 03:33 Influenza Type B (PCR) Negative (NEGATIVE) 12/25/23 03:33 RSV (PCR) Negative (NEGATIVE) 12/25/23 03:33 Resp Viral Panel (PCR) See scanned report 12/25/23 08:10 S. pyogenes (TEM-PCR) Not detected (NOT DETECT) 12/25/23 03:33 Opioid Opioid Risk Tool Age (Josias box if 16-45): Yes History of Preadolescent Sexual Abuse: No Total: 1 Total Score Risk Category: Low Risk Copyright: Martinez MARTINEZ predicting aberrant behaviors Discharge Plan Diagnosis Discharge Problem: Pneumonia, Hypoxemia, Malignant hypertension, Bilateral pleural effusion Discharge Plan Patient Disposition: 09 ADMITTED INPATIENT Condition: Stable Orders to Discharge Patient Discharge Orders: Discharge (Routine); Ordered 12/28/23 Ordered By: WOOD JEFFERSON
[2023-12-25] MEDS ORDERED: PROTONIX INJ 40 MG VIAL IVP SCH (17:00)
[2023-12-25] MEDS: NORCO 7.5/325 MG TAB PO PRN (17:51)
[2023-12-25] MEDS: SNACK - Diabetic Appropriate PO SCH (19:27)
[2023-12-25] MEDS: PULMICORT NEB TX 0.5 MG NEB SCH (20:31)
[2023-12-26 06:06] LABS: ABG ALLEN TEST POS; ABG BASE EXCESS 1.5 mmol/L (-2.0-2.0); ABG HCO3 26.6 mmol/L (22-26)
[2023-12-26 06:30] LABS: BASOPHILS # (AUTO) 0.1 X10^3/uL (0.0-0.1); BASOPHILS % (AUTO) 0.3 % (0.2-1.0); HEMATOCRIT 43.1 % (42.0-54.0); LYMPHOCYTES # (AUTO) 1.1 X10^3/uL (1.3-2.9); LYMPHOCYTES % (AUTO) 5.9 % (21.0-51.0); MEAN CORPUSCULAR HEMOGLOBIN 28.8 pg (27.0-34.0); MEAN CORPUSCULAR HGB CONC 32.9 g/dL (33.0-35.0); MEAN CORPUSCULAR VOLUME 87.5 fL (80.0-100.0); MEAN PLATELET VOLUME 8.8 fL (7.4-11.0); MONOCYTES # (AUTO) 0.2 x10^3/uL (0.3-0.8); MONOCYTES % (AUTO) 1.3 % (0.0-13.0); NEUTROPHILS # (AUTO) 17.3 x10^3/uL (2.2-4.8); NEUTROPHILS % (AUTO) 92.5 % (42.0-75.0); PLATELET COUNT 281 X10^3/uL (150.0-450.0); RED BLOOD COUNT 4.92 X10^6/uL (4.7-6.0); RED CELL DISTRIBUTION WIDTH 15.4 % (11.6-16.5); WHITE BLOOD COUNT 18.7 X10^3/uL (3.6-10.0)
[2023-12-26 06:42] LABS: HEMOGLOBIN 14.2 g/dL (13.5-18.0)
[2023-12-26 06:49] LABS: ALANINE AMINOTRANSFERASE 62 Units/L (12-78); ALKALINE PHOSPHATASE 97 Units/L (46-116); ASPARTATE AMINO TRANSFERASE 16 Units/L (15-37); BLOOD UREA NITROGEN 12 mg/dL (7-18); CALCIUM 8.1 mg/dL (8.5-10.1); CARBON DIOXIDE 23.8 mmol/L (21-32); CHLORIDE 105 mmol/L (98-107); COR CA(FOR HYPOALB) 8.9 mg/dL (8.5-10.1); COR NA(FOR HYPERGLY) 143 mmol/L (136-145); CREATININE 1.02 mg/dL (0.70-1.30); GLUCOSE 211 mg/dL (65-99); SODIUM 140 mmol/L (136-145); TOTAL PROTEIN 6.4 g/dL (6.4-8.2); eGFR NON BLACK RACES > 60 (>60)
[2023-12-26 07:32] LABS: BAND NEUTROPHILS % 0 % (0-10); BASOPHILS % (MANUAL) 0 % (0-1); PLATELET MORPHOLOGY COMMENT NORMAL (NORMAL)
--- NOTE | 2023-12-26 08:09 | RAD ---
EXAM:AP chestHISTORY:PneumoniaCOMPARISON: 024FINDINGS:Heart size normal and unchanged. There is slight diffuse interstitial prominence as previously noted without evidence for developing consolidation, pneumothorax or pleural fluid.IMPRESSION:No change, see above.THIS IS AN ELECTRONICALLY VERIFIED FINAL REPORT12/26/2023 8:06 AM - Electronically signed by Antonino Weiner MD
--- NOTE | 2023-12-26 10:54 | DR.PROGNOT ---
HOSPITAL PROGRESS NOTE Progress Note for Day of: Progress Note Date: 12/26/23 History of Present Illness History of Present Illness: 38 y/o male admitted for bilateral pneumonia, hypoxia. Past Medical Family Social History Allergies: Allergies lisinopril Allergy (Verified 12/05/23 12:36) Vital Signs Vital Signs: Vital Signs Temperature 98.3 F Temperature 97.6 F Pulse Rate [Right Brachial] 103 Pulse Rate [Right Brachial] 104 Respiratory Rate 20 Respiratory Rate 18 Respiratory Rate 18 Respiratory Rate 20 Blood Pressure [Right Arm] 140/76 Blood Pressure [Right Arm] 136/78 O2 Sat by Pulse Oximetry 97 O2 Sat by Pulse Oximetry 98 Physical Exam Speech Pattern: Clear and Appropriate Laboratory and Diagnostics 12/26/23 06:07 12/26/23 06:07 Labs: 12/25/23 11:04 Urine,Clean Catch Urine Culture - Preliminary Laboratory WBC 18.7 X10^3/uL (3.6-10.0) H 12/26/23 06:07 RBC 4.92 X10^6/uL (4.7-6.0) 12/26/23 06:07 Hgb 14.2 g/dL (13.5-18.0) D 12/26/23 06:07 Hct 43.1 % (42.0-54.0) 12/26/23 06:07 MCV 87.5 fL (80.0-100.0) 12/26/23 06:07 MCH 28.8 pg (27.0-34.0) 12/26/23 06:07 MCHC 32.9 g/dL (33.0-35.0) L 12/26/23 06:07 RDW 15.4 % (11.6-16.5) 12/26/23 06:07 Plt Count 281 X10^3/uL (150.0-450.0) 12/26/23 06:07 Plt Count Comment Adequate (ADEQUATE) 12/26/23 06:07 MPV 8.8 fL (7.4-11.0) 12/26/23 06:07 Neut % (Auto) 92.5 % (42.0-75.0) H 12/26/23 06:07 Lymph % (Auto) 5.9 % (21.0-51.0) L 12/26/23 06:07 [place] % (Auto) 1.3 % (0.0-13.0) 12/26/23 06:07 Eos % (Auto) 0.0 % (0.9-2.9) L 12/26/23 06:07 Baso % (Auto) 0.3 % (0.2-1.0) 12/26/23 06:07 Neut # (Auto) 17.3 x10^3/uL (2.2-4.8) H 12/26/23 06:07 Lymph # (Auto) 1.1 X10^3/uL (1.3-2.9) L 12/26/23 06:07 [place] # (Auto) 0.2 x10^3/uL (0.3-0.8) L 12/26/23 06:07 Eos # (Auto) 0.0 x10^3/uL (0.0-0.2) 12/26/23 06:07 Baso # (Auto) 0.1 X10^3/uL (0.0-0.1) 12/26/23 06:07 Absolute Nucleated RBC 0.0 /100WBC 12/26/23 06:07 Total Counted 100 12/26/23 06:07 Neutrophils % (Manual) 90 % (39-76) H 12/26/23 06:07 Band Neutrophils % 0 % (0-10) 12/26/23 06:07 Lymphocytes % (Manual) 8 % (13-43) L 12/26/23 06:07 Monocytes % (Manual) 1 % (4-9) L 12/26/23 06:07 Eosinophils % (Manual) 1 % (0-6) 12/26/23 06:07 Basophils % (Manual) 0 % (0-1) 12/26/23 06:07 Plt Morphology Comment Normal (NORMAL) 12/26/23 06:07 RBC Morphology Normal (NORMAL) 12/26/23 06:07 Sample Site Rrad 12/26/23 06:06 ABG pH 7.400 (7.35-7.45) 12/26/23 06:06 ABG pCO2 43.0 mmHg (35.0-45.0) 12/26/23 06:06 ABG pO2 60.0 mmHg (80.0-100.0) L 12/26/23 06:06 ABG HCO3 26.6 mmol/L (22-26) H 12/26/23 06:06 ABG O2 Saturation 91.0 % (90-100) 12/26/23 06:06 ABG Base Excess 1.5 mmol/L (-2.0-2.0) 12/26/23 06:06 Tristan Test Pos 12/26/23 06:06 A-a Gradient 36.0 mmHg 12/26/23 06:06 FiO2 21.0 12/26/23 06:06 Blood Gas Comments John abg well-mtf 12/26/23 06:06 Sodium 140 mmol/L (136-145) 12/26/23 06:07 Corrected Sodium 143 mmol/L (136-145) 12/26/23 06:07 Potassium 4.0 mmol/L (3.5-5.1) 12/26/23 06:07 Chloride 105 mmol/L (98-107) 12/26/23 06:07 Carbon Dioxide 23.8 mmol/L (21-32) 12/26/23 06:07 BUN 12 mg/dL (7-18) 12/26/23 06:07 Creatinine 1.02 mg/dL (0.70-1.30) 12/26/23 06:07 Est GFR (MDRD) Af Amer > 60 (>60) 12/26/23 06:07 Est GFR (MDRD) Non-Af > 60 (>60) 12/26/23 06:07 Glucose 211 mg/dL (65-99) H 12/26/23 06:07 POC Glucose (mg/dL) 200 mg/dL (65-99) H 12/26/23 05:47 Calcium 8.1 mg/dL (8.5-10.1) L 12/26/23 06:07 Corrected Calcium 8.9 mg/dL (8.5-10.1) 12/26/23 06:07 Total Bilirubin 0.60 mg/dL (0.2-1.0) 12/26/23 06:07 AST 16 Units/L (15-37) 12/26/23 06:07 ALT 62 Units/L (12-78) 12/26/23 06:07 Alkaline Phosphatase 97 Units/L (46-116) 12/26/23 06:07 Total Protein 6.4 g/dL (6.4-8.2) 12/26/23 06:07 Albumin 3.0 g/dL (3.4-5.0) L 12/26/23 06:07 Globulin 3.4 g/dL (2.5-4.5) 12/26/23 06:07 Albumin/Globulin Ratio 0.9 Ratio (1.1-2.1) L 12/26/23 06:07 Specimen Type Clean catch urine 12/25/23 11:04 Urine Color Pale yellow (YELLOW) 12/25/23 11:04 Urine Appearance Clear (CLEAR) 12/25/23 11:04 Urine pH 7.0 (5.0 - 8.0) 12/25/23 11:04 Ur Specific [place] 1.010 (1.000-1.030) 12/25/23 11:04 Urine Protein 1+ (NEGATIVE) 12/25/23 11:04 Urine Glucose (UA) Negative (NEGATIVE) 12/25/23 11:04 Urine Ketones Negative (NEGATIVE) 12/25/23 11:04 Urine Blood Negative (NEGATIVE) 12/25/23 11:04 Urine Nitrite Negative (NEGATIVE) 12/25/23 11:04 Urine Bilirubin Negative (NEGATIVE) 12/25/23 11:04 Urine Urobilinogen Normal (NORMAL) 12/25/23 11:04 Ur Leukocyte Esterase Negative (NEGATIVE) 12/25/23 11:04 Urine RBC 0-2 /HPF (0-3) 12/25/23 11:04 Urine WBC 0-2 /HPF (0-5) 12/25/23 11:04 Ur Squamous Epith Cells Negative /HPF (NEGATIVE) 12/25/23 11:04 Urine Bacteria Trace /HPF (NEGATIVE) 12/25/23 11:04 Ur Culture Indicated? Yes/culture set up 12/25/23 11:04 Urine Opiates Screen Negative (NEG=<300) 12/25/23 11:04 Urine Methadone Screen Negative (NEG=<300) 12/25/23 11:04 Ur Barbiturates Screen Negative (NEG=<200) 12/25/23 11:04 Ur Phencyclidine Scrn Negative (NEG=<25) 12/25/23 11:04 Ur Amphetamines Screen Positive (NEG=<1000) 12/25/23 11:04 U Benzodiazepines Scrn Negative (NEG=<200) 12/25/23 11:04 Urine Cocaine Screen Negative (NEG=<300) 12/25/23 11:04 U Marijuana (THC) Screen Positive (NEG=<50) A 12/25/23 11:04 SARS-CoV-2 (PCR) Negative (NEGATIVE) 12/25/23 03:33 Influenza Type A (PCR) Negative (NEGATIVE) 12/25/23 03:33 Influenza Type B (PCR) Negative (NEGATIVE) 12/25/23 03:33 RSV (PCR) Negative (NEGATIVE) 12/25/23 03:33 S. pyogenes (TEM-PCR) Not detected (NOT DETECT) 12/25/23 03:33 Problem Patient Problems: Patient Problems (Updated 12/25/23 @ 09:11 by Louisa Mata) Pneumonia (Acute) J18.9 Hypoxemia (Acute) R09.02 Malignant hypertension (Acute) I10 Bilateral pleural effusion (Acute) J90
--- NOTE | 2023-12-26 11:01 | DR.PROGNOT ---
HOSPITAL PROGRESS NOTE Progress Note for Day of: Progress Note Date: 12/26/23 History of Present Illness History of Present Illness: 38 y/o male admitted for bilateral pneumonia, hypoxia. No complaints at present, doing better with po pain medicine added. Past Medical Family Social History Allergies: Allergies lisinopril Allergy (Verified 12/05/23 12:36) Vital Signs Vital Signs: Vital Signs Temperature 98.3 F Temperature 97.6 F Pulse Rate [Right Brachial] 103 Pulse Rate [Right Brachial] 104 Respiratory Rate 20 Respiratory Rate 18 Respiratory Rate 18 Respiratory Rate 20 Blood Pressure [Right Arm] 140/76 Blood Pressure [Right Arm] 136/78 O2 Sat by Pulse Oximetry 97 O2 Sat by Pulse Oximetry 98 Physical Exam Oriented: Normal Eyes: Normal Nose: Normal Respiratory: Normal Cardiovascular: Normal GI:Auscultation: Normal GI:Palpation: Normal Musculoskeletal: Normal Psychiatric: Normal Speech Pattern: Clear and Appropriate Laboratory and Diagnostics 12/26/23 06:07 12/26/23 06:07 Labs: 12/25/23 11:04 Urine,Clean Catch Urine Culture - Preliminary Laboratory WBC 18.7 X10^3/uL (3.6-10.0) H 12/26/23 06:07 RBC 4.92 X10^6/uL (4.7-6.0) 12/26/23 06:07 Hgb 14.2 g/dL (13.5-18.0) D 12/26/23 06:07 Hct 43.1 % (42.0-54.0) 12/26/23 06:07 MCV 87.5 fL (80.0-100.0) 12/26/23 06:07 MCH 28.8 pg (27.0-34.0) 12/26/23 06:07 MCHC 32.9 g/dL (33.0-35.0) L 12/26/23 06:07 RDW 15.4 % (11.6-16.5) 12/26/23 06:07 Plt Count 281 X10^3/uL (150.0-450.0) 12/26/23 06:07 Plt Count Comment Adequate (ADEQUATE) 12/26/23 06:07 MPV 8.8 fL (7.4-11.0) 12/26/23 06:07 Neut % (Auto) 92.5 % (42.0-75.0) H 12/26/23 06:07 Lymph % (Auto) 5.9 % (21.0-51.0) L 12/26/23 06:07 [place] % (Auto) 1.3 % (0.0-13.0) 12/26/23 06:07 Eos % (Auto) 0.0 % (0.9-2.9) L 12/26/23 06:07 Baso % (Auto) 0.3 % (0.2-1.0) 12/26/23 06:07 Neut # (Auto) 17.3 x10^3/uL (2.2-4.8) H 12/26/23 06:07 Lymph # (Auto) 1.1 X10^3/uL (1.3-2.9) L 12/26/23 06:07 [place] # (Auto) 0.2 x10^3/uL (0.3-0.8) L 12/26/23 06:07 Eos # (Auto) 0.0 x10^3/uL (0.0-0.2) 12/26/23 06:07 Baso # (Auto) 0.1 X10^3/uL (0.0-0.1) 12/26/23 06:07 Absolute Nucleated RBC 0.0 /100WBC 12/26/23 06:07 Total Counted 100 12/26/23 06:07 Neutrophils % (Manual) 90 % (39-76) H 12/26/23 06:07 Band Neutrophils % 0 % (0-10) 12/26/23 06:07 Lymphocytes % (Manual) 8 % (13-43) L 12/26/23 06:07 Monocytes % (Manual) 1 % (4-9) L 12/26/23 06:07 Eosinophils % (Manual) 1 % (0-6) 12/26/23 06:07 Basophils % (Manual) 0 % (0-1) 12/26/23 06:07 Plt Morphology Comment Normal (NORMAL) 12/26/23 06:07 RBC Morphology Normal (NORMAL) 12/26/23 06:07 Sample Site Rrad 12/26/23 06:06 ABG pH 7.400 (7.35-7.45) 12/26/23 06:06 ABG pCO2 43.0 mmHg (35.0-45.0) 12/26/23 06:06 ABG pO2 60.0 mmHg (80.0-100.0) L 12/26/23 06:06 ABG HCO3 26.6 mmol/L (22-26) H 12/26/23 06:06 ABG O2 Saturation 91.0 % (90-100) 12/26/23 06:06 ABG Base Excess 1.5 mmol/L (-2.0-2.0) 12/26/23 06:06 Tristan Test Pos 12/26/23 06:06 A-a Gradient 36.0 mmHg 12/26/23 06:06 FiO2 21.0 12/26/23 06:06 Blood Gas Comments John abg well-mtf 12/26/23 06:06 Sodium 140 mmol/L (136-145) 12/26/23 06:07 Corrected Sodium 143 mmol/L (136-145) 12/26/23 06:07 Potassium 4.0 mmol/L (3.5-5.1) 12/26/23 06:07 Chloride 105 mmol/L (98-107) 12/26/23 06:07 Carbon Dioxide 23.8 mmol/L (21-32) 12/26/23 06:07 BUN 12 mg/dL (7-18) 12/26/23 06:07 Creatinine 1.02 mg/dL (0.70-1.30) 12/26/23 06:07 Est GFR (MDRD) Af Amer > 60 (>60) 12/26/23 06:07 Est GFR (MDRD) Non-Af > 60 (>60) 12/26/23 06:07 Glucose 211 mg/dL (65-99) H 12/26/23 06:07 POC Glucose (mg/dL) 200 mg/dL (65-99) H 12/26/23 05:47 Calcium 8.1 mg/dL (8.5-10.1) L 12/26/23 06:07 Corrected Calcium 8.9 mg/dL (8.5-10.1) 12/26/23 06:07 Total Bilirubin 0.60 mg/dL (0.2-1.0) 12/26/23 06:07 AST 16 Units/L (15-37) 12/26/23 06:07 ALT 62 Units/L (12-78) 12/26/23 06:07 Alkaline Phosphatase 97 Units/L (46-116) 12/26/23 06:07 Total Protein 6.4 g/dL (6.4-8.2) 12/26/23 06:07 Albumin 3.0 g/dL (3.4-5.0) L 12/26/23 06:07 Globulin 3.4 g/dL (2.5-4.5) 12/26/23 06:07 Albumin/Globulin Ratio 0.9 Ratio (1.1-2.1) L 12/26/23 06:07 Specimen Type Clean catch urine 12/25/23 11:04 Urine Color Pale yellow (YELLOW) 12/25/23 11:04 Urine Appearance Clear (CLEAR) 12/25/23 11:04 Urine pH 7.0 (5.0 - 8.0) 12/25/23 11:04 Ur Specific [place] 1.010 (1.000-1.030) 12/25/23 11:04 Urine Protein 1+ (NEGATIVE) 12/25/23 11:04 Urine Glucose (UA) Negative (NEGATIVE) 12/25/23 11:04 Urine Ketones Negative (NEGATIVE) 12/25/23 11:04 Urine Blood Negative (NEGATIVE) 12/25/23 11:04 Urine Nitrite Negative (NEGATIVE) 12/25/23 11:04 Urine Bilirubin Negative (NEGATIVE) 12/25/23 11:04 Urine Urobilinogen Normal (NORMAL) 12/25/23 11:04 Ur Leukocyte Esterase Negative (NEGATIVE) 12/25/23 11:04 Urine RBC 0-2 /HPF (0-3) 12/25/23 11:04 Urine WBC 0-2 /HPF (0-5) 12/25/23 11:04 Ur Squamous Epith Cells Negative /HPF (NEGATIVE) 12/25/23 11:04 Urine Bacteria Trace /HPF (NEGATIVE) 12/25/23 11:04 Ur Culture Indicated? Yes/culture set up 12/25/23 11:04 Urine Opiates Screen Negative (NEG=<300) 12/25/23 11:04 Urine Methadone Screen Negative (NEG=<300) 12/25/23 11:04 Ur Barbiturates Screen Negative (NEG=<200) 12/25/23 11:04 Ur Phencyclidine Scrn Negative (NEG=<25) 12/25/23 11:04 Ur Amphetamines Screen Positive (NEG=<1000) 12/25/23 11:04 U Benzodiazepines Scrn Negative (NEG=<200) 12/25/23 11:04 Urine Cocaine Screen Negative (NEG=<300) 12/25/23 11:04 U Marijuana (THC) Screen Positive (NEG=<50) A 12/25/23 11:04 SARS-CoV-2 (PCR) Negative (NEGATIVE) 12/25/23 03:33 Influenza Type A (PCR) Negative (NEGATIVE) 12/25/23 03:33 Influenza Type B (PCR) Negative (NEGATIVE) 12/25/23 03:33 RSV (PCR) Negative (NEGATIVE) 12/25/23 03:33 S. pyogenes (TEM-PCR) Not detected (NOT DETECT) 12/25/23 03:33 Assessment and Plan 1: Bilateral pneumonia, hypoxia - improving. WBC increased this am, probably due to steroids. CXR this am stable, no worsening. Continue IV antibiotic. Problem Patient Problems: Patient Problems (Updated 12/25/23 @ 09:11 by Louisa Mata) Pneumonia (Acute) J18.9 Hypoxemia (Acute) R09.02 Malignant hypertension (Acute) I10 Bilateral pleural effusion (Acute) J90
[2023-12-27 05:51] LABS: BASOPHILS # (AUTO) 0.1 X10^3/uL (0.0-0.1); BASOPHILS % (AUTO) 0.3 % (0.2-1.0); HEMATOCRIT 41.7 % (42.0-54.0); HEMOGLOBIN 13.7 g/dL (13.5-18.0); MEAN CORPUSCULAR HEMOGLOBIN 28.7 pg (27.0-34.0); MEAN CORPUSCULAR HGB CONC 32.8 g/dL (33.0-35.0); MEAN CORPUSCULAR VOLUME 87.5 fL (80.0-100.0); MEAN PLATELET VOLUME 9.3 fL (7.4-11.0); MONOCYTES # (AUTO) 0.5 x10^3/uL (0.3-0.8); MONOCYTES % (AUTO) 2.3 % (0.0-13.0); NEUTROPHILS # (AUTO) 19.5 x10^3/uL (2.2-4.8); NEUTROPHILS % (AUTO) 92.4 % (42.0-75.0); PLATELET COUNT 278 X10^3/uL (150.0-450.0); RED BLOOD COUNT 4.77 X10^6/uL (4.7-6.0); RED CELL DISTRIBUTION WIDTH 15.4 % (11.6-16.5); WHITE BLOOD COUNT 21.1 X10^3/uL (3.6-10.0)
[2023-12-27 06:03] LABS: ALANINE AMINOTRANSFERASE 74 Units/L (12-78); ALKALINE PHOSPHATASE 87 Units/L (46-116); ASPARTATE AMINO TRANSFERASE 24 Units/L (15-37); BLOOD UREA NITROGEN 13 mg/dL (7-18); CALCIUM 7.8 mg/dL (8.5-10.1); CARBON DIOXIDE 25.3 mmol/L (21-32); CHLORIDE 106 mmol/L (98-107); COR CA(FOR HYPOALB) 8.6 mg/dL (8.5-10.1); COR NA(FOR HYPERGLY) 147 mmol/L (136-145); CREATININE 0.96 mg/dL (0.70-1.30); GLUCOSE 265 mg/dL (65-99); POTASSIUM 4.1 mmol/L (3.5-5.1); SODIUM 143 mmol/L (136-145); TOTAL PROTEIN 6.2 g/dL (6.4-8.2); eGFR NON BLACK RACES > 60 (>60)
[2023-12-27 06:25] LABS: BAND NEUTROPHILS % 0 % (0-10); BASOPHILS % (MANUAL) 0 % (0-1); PLATELET MORPHOLOGY COMMENT NORMAL (NORMAL)
--- NOTE | 2023-12-27 09:44 | DR.PROGNOT ---
HOSPITAL PROGRESS NOTE Progress Note for Day of: Progress Note Date: 12/27/23 History of Present Illness History of Present Illness: 38 y/o male admitted for bilateral pneumonia, hypoxia. Doing better. Not short of breath on RA. No V/D. Past Medical Family Social History Allergies: Allergies lisinopril Allergy (Verified 12/05/23 12:36) Vital Signs Vital Signs: Vital Signs Temperature 97.7 F Temperature 97.9 F Pulse Rate [Right Brachial] 104 Pulse Rate [Right Brachial] 98 Pulse Rate 105 Respiratory Rate 20 Respiratory Rate 18 Respiratory Rate 18 Respiratory Rate 20 Blood Pressure [Right Arm] 142/80 Blood Pressure [Right Arm] 117/59 O2 Sat by Pulse Oximetry 95 O2 Sat by Pulse Oximetry 97 O2 Sat by Pulse Oximetry 97 Physical Exam Oriented: Normal Eyes: Normal Nose: Normal Respiratory: Normal Cardiovascular: Normal GI:Auscultation: Normal GI:Palpation: Normal Musculoskeletal: Normal Psychiatric: Normal Speech Pattern: Clear and Appropriate Laboratory and Diagnostics 12/27/23 05:12 12/27/23 05:12 Labs: 12/25/23 04:56 Blood Blood Culture - Preliminary 12/25/23 04:41 Blood Blood Culture - Preliminary 12/25/23 11:04 Urine,Clean Catch Urine Culture - Final Laboratory WBC 21.1 X10^3/uL (3.6-10.0) H 12/27/23 05:12 RBC 4.77 X10^6/uL (4.7-6.0) 12/27/23 05:12 Hgb 13.7 g/dL (13.5-18.0) 12/27/23 05:12 Hct 41.7 % (42.0-54.0) L 12/27/23 05:12 MCV 87.5 fL (80.0-100.0) 12/27/23 05:12 MCH 28.7 pg (27.0-34.0) 12/27/23 05:12 MCHC 32.8 g/dL (33.0-35.0) L 12/27/23 05:12 RDW 15.4 % (11.6-16.5) 12/27/23 05:12 Plt Count 278 X10^3/uL (150.0-450.0) 12/27/23 05:12 Plt Count Comment Adequate (ADEQUATE) 12/27/23 05:12 MPV 9.3 fL (7.4-11.0) 12/27/23 05:12 Neut % (Auto) 92.4 % (42.0-75.0) H 12/27/23 05:12 Lymph % (Auto) 5.0 % (21.0-51.0) L 12/27/23 05:12 [place] % (Auto) 2.3 % (0.0-13.0) 12/27/23 05:12 Eos % (Auto) 0.0 % (0.9-2.9) L 12/27/23 05:12 Baso % (Auto) 0.3 % (0.2-1.0) 12/27/23 05:12 Neut # (Auto) 19.5 x10^3/uL (2.2-4.8) H 12/27/23 05:12 Lymph # (Auto) 1.0 X10^3/uL (1.3-2.9) L 12/27/23 05:12 [place] # (Auto) 0.5 x10^3/uL (0.3-0.8) 12/27/23 05:12 Eos # (Auto) 0.0 x10^3/uL (0.0-0.2) 12/27/23 05:12 Baso # (Auto) 0.1 X10^3/uL (0.0-0.1) 12/27/23 05:12 Absolute Nucleated RBC 0.0 /100WBC 12/27/23 05:12 Total Counted 100 12/27/23 05:12 Neutrophils % (Manual) 92 % (39-76) H 12/27/23 05:12 Band Neutrophils % 0 % (0-10) 12/27/23 05:12 Lymphocytes % (Manual) 7 % (13-43) L 12/27/23 05:12 Monocytes % (Manual) 1 % (4-9) L 12/27/23 05:12 Eosinophils % (Manual) 0 % (0-6) 12/27/23 05:12 Basophils % (Manual) 0 % (0-1) 12/27/23 05:12 Plt Morphology Comment Normal (NORMAL) 12/27/23 05:12 RBC Morphology Normal (NORMAL) 12/27/23 05:12 Sample Site Rrad 12/26/23 06:06 ABG pH 7.400 (7.35-7.45) 12/26/23 06:06 ABG pCO2 43.0 mmHg (35.0-45.0) 12/26/23 06:06 ABG pO2 60.0 mmHg (80.0-100.0) L 12/26/23 06:06 ABG HCO3 26.6 mmol/L (22-26) H 12/26/23 06:06 ABG O2 Saturation 91.0 % (90-100) 12/26/23 06:06 ABG Base Excess 1.5 mmol/L (-2.0-2.0) 12/26/23 06:06 Tristan Test Pos 12/26/23 06:06 A-a Gradient 36.0 mmHg 12/26/23 06:06 FiO2 21.0 12/26/23 06:06 Blood Gas Comments John abg well-mtf 12/26/23 06:06 Sodium 143 mmol/L (136-145) 12/27/23 05:12 Corrected Sodium 147 mmol/L (136-145) H 12/27/23 05:12 Potassium 4.1 mmol/L (3.5-5.1) 12/27/23 05:12 Chloride 106 mmol/L (98-107) 12/27/23 05:12 Carbon Dioxide 25.3 mmol/L (21-32) 12/27/23 05:12 BUN 13 mg/dL (7-18) 12/27/23 05:12 Creatinine 0.96 mg/dL (0.70-1.30) 12/27/23 05:12 Est GFR (MDRD) Af Amer > 60 (>60) 12/27/23 05:12 Est GFR (MDRD) Non-Af > 60 (>60) 12/27/23 05:12 Glucose 265 mg/dL (65-99) H 12/27/23 05:12 POC Glucose (mg/dL) 247 mg/dL (65-99) H 12/27/23 05:07 Calcium 7.8 mg/dL (8.5-10.1) L 12/27/23 05:12 Corrected Calcium 8.6 mg/dL (8.5-10.1) 12/27/23 05:12 Total Bilirubin 0.40 mg/dL (0.2-1.0) 12/27/23 05:12 AST 24 Units/L (15-37) 12/27/23 05:12 ALT 74 Units/L (12-78) 12/27/23 05:12 Alkaline Phosphatase 87 Units/L (46-116) 12/27/23 05:12 Total Protein 6.2 g/dL (6.4-8.2) L 12/27/23 05:12 Albumin 3.0 g/dL (3.4-5.0) L 12/27/23 05:12 Globulin 3.2 g/dL (2.5-4.5) 12/27/23 05:12 Albumin/Globulin Ratio 0.9 Ratio (1.1-2.1) L 12/27/23 05:12 Specimen Type Clean catch urine 12/25/23 11:04 Urine Color Pale yellow (YELLOW) 12/25/23 11:04 Urine Appearance Clear (CLEAR) 12/25/23 11:04 Urine pH 7.0 (5.0 - 8.0) 12/25/23 11:04 Ur Specific [place] 1.010 (1.000-1.030) 12/25/23 11:04 Urine Protein 1+ (NEGATIVE) 12/25/23 11:04 Urine Glucose (UA) Negative (NEGATIVE) 12/25/23 11:04 Urine Ketones Negative (NEGATIVE) 12/25/23 11:04 Urine Blood Negative (NEGATIVE) 12/25/23 11:04 Urine Nitrite Negative (NEGATIVE) 12/25/23 11:04 Urine Bilirubin Negative (NEGATIVE) 12/25/23 11:04 Urine Urobilinogen Normal (NORMAL) 12/25/23 11:04 Ur Leukocyte Esterase Negative (NEGATIVE) 12/25/23 11:04 Urine RBC 0-2 /HPF (0-3) 12/25/23 11:04 Urine WBC 0-2 /HPF (0-5) 12/25/23 11:04 Ur Squamous Epith Cells Negative /HPF (NEGATIVE) 12/25/23 11:04 Urine Bacteria Trace /HPF (NEGATIVE) 12/25/23 11:04 Ur Culture Indicated? Yes/culture set up 12/25/23 11:04 Urine Opiates Screen Negative (NEG=<300) 12/25/23 11:04 Urine Methadone Screen Negative (NEG=<300) 12/25/23 11:04 Ur Barbiturates Screen Negative (NEG=<200) 12/25/23 11:04 Ur Phencyclidine Scrn Negative (NEG=<25) 12/25/23 11:04 Ur Amphetamines Screen Positive (NEG=<1000) 12/25/23 11:04 U Benzodiazepines Scrn Negative (NEG=<200) 12/25/23 11:04 Urine Cocaine Screen Negative (NEG=<300) 12/25/23 11:04 U Marijuana (THC) Screen Positive (NEG=<50) A 12/25/23 11:04 SARS-CoV-2 (PCR) Negative (NEGATIVE) 12/25/23 03:33 Influenza Type A (PCR) Negative (NEGATIVE) 12/25/23 03:33 Influenza Type B (PCR) Negative (NEGATIVE) 12/25/23 03:33 RSV (PCR) Negative (NEGATIVE) 12/25/23 03:33 S. pyogenes (TEM-PCR) Not detected (NOT DETECT) 12/25/23 03:33 Assessment and Plan 1: Bilateral pneumonia, hypoxia - improving. WBC increased this am, probably due to steroids. CXR yesterday stable. Will d/c steroids. Start doxycycline BID. Anticipate d/c in am . Problem Patient Problems: Patient Problems (Updated 12/25/23 @ 09:11 by Louisa Mata) Pneumonia (Acute) J18.9 Hypoxemia (Acute) R09.02 Malignant hypertension (Acute) I10 Bilateral pleural effusion (Acute) J90
[2023-12-27] MEDS: VIBRAMYCIN PO SCH (10:48)
[2023-12-27] MEDS: ZOFRAN INJ 4 MG VIAL IVP PRN (13:47)
[2023-12-28 05:20] VITALS: RESP 18
--- NOTE | 2023-12-28 05:51 | RAD ---
PROCEDURE: Chest X-ray 1 View.HISTORY: Pneumonia.TECHNIQUE: AP view.COMPARISON: 12/26/2023.TECHNICAL QUALITY: Satisfactory.FINDINGS:Normal size heart.Mediastinum and hilar regions show no masses or lymphadenopathy.Normal central vascularity.Patchy pneumonia lung bases unchanged from previous study. No pleural fluid.No acute bony abnormality.IMPRESSION:Unchanged mild pneumonia lung bases.THIS IS AN ELECTRONICALLY VERIFIED FINAL REPORT12/28/2023 5:48 AM - Electronically signed by Maninder Tinoco MD
[2023-12-28 06:16] LABS: BASOPHILS % (AUTO) 0.3 % (0.2-1.0); EOSINOPHILS % (AUTO) 0.1 % (0.9-2.9); HEMATOCRIT 39.4 % (42.0-54.0); HEMOGLOBIN 12.8 g/dL (13.5-18.0); LYMPHOCYTES % (AUTO) 13.8 % (21.0-51.0); MEAN CORPUSCULAR HEMOGLOBIN 28.7 pg (27.0-34.0); MEAN CORPUSCULAR HGB CONC 32.6 g/dL (33.0-35.0); MEAN CORPUSCULAR VOLUME 88.1 fL (80.0-100.0); MONOCYTES # (AUTO) 0.5 x10^3/uL (0.3-0.8); MONOCYTES % (AUTO) 3.5 % (0.0-13.0); NEUTROPHILS # (AUTO) 12.2 x10^3/uL (2.2-4.8); NEUTROPHILS % (AUTO) 82.3 % (42.0-75.0); PLATELET COUNT 228 X10^3/uL (150.0-450.0); RED BLOOD COUNT 4.47 X10^6/uL (4.7-6.0); RED CELL DISTRIBUTION WIDTH 15.5 % (11.6-16.5); WHITE BLOOD COUNT 14.8 X10^3/uL (3.6-10.0)
[2023-12-28 06:31] LABS: ALANINE AMINOTRANSFERASE 73 Units/L (12-78); ALBUMIN 2.6 g/dL (3.4-5.0); ALKALINE PHOSPHATASE 74 Units/L (46-116); ASPARTATE AMINO TRANSFERASE 28 Units/L (15-37); BLOOD UREA NITROGEN 16 mg/dL (7-18); CALCIUM 7.5 mg/dL (8.5-10.1); CARBON DIOXIDE 25.4 mmol/L (21-32); CHLORIDE 107 mmol/L (98-107); COR CA(FOR HYPOALB) 8.6 mg/dL (8.5-10.1); COR NA(FOR HYPERGLY) 147 mmol/L (136-145); CREATININE 1.07 mg/dL (0.70-1.30); GLUCOSE 245 mg/dL (65-99); POTASSIUM 3.6 mmol/L (3.5-5.1); SODIUM 144 mmol/L (136-145); TOTAL PROTEIN 5.5 g/dL (6.4-8.2); eGFR NON BLACK RACES > 60 (>60)
--- NOTE | 2023-12-28 06:55 | RAD ---
EXAM:Portable chestHISTORY:PneumoniaCOMPARISON: 024 chest x-ray, 12/25/2023 CTA chestFINDINGS:Heart size is normal. Jenna are lungs are well inflated infiltrates. No pleural effusions are identified. Bony thorax is.IMPRESSION:Lungs are now clearTHIS IS AN ELECTRONICALLY VERIFIED FINAL REPORT12/28/2023 6:51 AM - Electronically signed by Constantino Aguilar MD
[2023-12-28] MEDS ORDERED: CONSULT PHARMACY - POTASSIUM & MAGNESIUM XX SCH (08:00)
[2023-12-28 08:06] VITALS: BP 132/75; TEMP 98; O2SAT 97
[2023-12-28 08:25] VITALS: PULSE 99
[2023-12-28] MEDS: ZITHROMAX INJ 500 MG VIAL IV ONE (08:45)
[2023-12-28 09:08] LABS: ABG ALLEN TEST POS; ABG HCO3 26.5 mmol/L (22-26)
[2023-12-28] MEDS: K-DUR TAB 20 MEQ PO SCH (09:41)
[2023-12-28] MEDS: NS 250 ML IV 250 ML IV ONE (09:41)
--- NOTE | 2023-12-28 17:47 | DR.H&P ---
H&P History & Physical for Day of: H&P Date: 12/25/23 Chief Complaint Chief Complaint: CCC/SOB Allergies Allergies Allergy/AdvReac Type Severity Reaction Status Date / Time lisinopril Allergy Verified 12/05/23 12:36 History of Present Illness History of Present Illness: PT IS 38 BM, ER ADMISSION AFTER PRESENTING TO HOSPITAL WITH CO SOB. PT WAS SEEN IN ER ONE DAY AGO AND HAS NOT STARTED PO PRESCRIPTION MEDICATION. PT WAS HYPOXIC ON ER ADMISSION. PT WAS ADMITTED FOR TREATMENT AND EVALUATION OF ACUTE ILLNESS. Past Medical History Past Medical History: Anxiety, Asthma, Depression, Diabetes, Dyslipidemia, Migraines, Hypertension, Kidney Stones and Schizophrenia Past Surgical History Surgical History: Ortho Surgery Family History Family Medical History: Diabetes Mellitus, Cancer, Heart Failure and Hypertension Social History Does patient currently use any type of tobacco product: No Have you used tobacco products in the last 12 months: No Type of Tobacco Use: Cigarettes How many years tobacco product used: 20 Does any household member use tobacco: Yes Alcohol Use: Occasionally Drug Use: Marijuana Labs 12/28/23 05:33 12/28/23 05:33 Labs: 12/25/23 04:56 Blood Blood Culture - Preliminary 12/25/23 04:41 Blood Blood Culture - Preliminary 12/25/23 11:04 Urine,Clean Catch Urine Culture - Final Laboratory WBC 14.8 X10^3/uL (3.6-10.0) H 12/28/23 05:33 RBC 4.47 X10^6/uL (4.7-6.0) L 12/28/23 05:33 Hgb 12.8 g/dL (13.5-18.0) L 12/28/23 05:33 Hct 39.4 % (42.0-54.0) L 12/28/23 05:33 MCV 88.1 fL (80.0-100.0) 12/28/23 05:33 MCH 28.7 pg (27.0-34.0) 12/28/23 05:33 MCHC 32.6 g/dL (33.0-35.0) L 12/28/23 05:33 RDW 15.5 % (11.6-16.5) 12/28/23 05:33 Plt Count 228 X10^3/uL (150.0-450.0) 12/28/23 05:33 Plt Count Comment Adequate (ADEQUATE) 12/27/23 05:12 MPV 9.0 fL (7.4-11.0) 12/28/23 05:33 Neut % (Auto) 82.3 % (42.0-75.0) H 12/28/23 05:33 Lymph % (Auto) 13.8 % (21.0-51.0) L 12/28/23 05:33 Schleicher % (Auto) 3.5 % (0.0-13.0) 12/28/23 05:33 Eos % (Auto) 0.1 % (0.9-2.9) L 12/28/23 05:33 Baso % (Auto) 0.3 % (0.2-1.0) 12/28/23 05:33 Neut # (Auto) 12.2 x10^3/uL (2.2-4.8) H 12/28/23 05:33 Lymph # (Auto) 2.0 X10^3/uL (1.3-2.9) 12/28/23 05:33 Schleicher # (Auto) 0.5 x10^3/uL (0.3-0.8) 12/28/23 05:33 Eos # (Auto) 0.0 x10^3/uL (0.0-0.2) 12/28/23 05:33 Baso # (Auto) 0.0 X10^3/uL (0.0-0.1) 12/28/23 05:33 Absolute Nucleated RBC 0.1 /100WBC 12/28/23 05:33 Total Counted 100 12/27/23 05:12 Neutrophils % (Manual) 92 % (39-76) H 12/27/23 05:12 Band Neutrophils % 0 % (0-10) 12/27/23 05:12 Lymphocytes % (Manual) 7 % (13-43) L 12/27/23 05:12 Monocytes % (Manual) 1 % (4-9) L 12/27/23 05:12 Eosinophils % (Manual) 0 % (0-6) 12/27/23 05:12 Basophils % (Manual) 0 % (0-1) 12/27/23 05:12 Plt Morphology Comment Normal (NORMAL) 12/27/23 05:12 RBC Morphology Normal (NORMAL) 12/27/23 05:12 Sample Site Rrad 12/28/23 09:02 ABG pH 7.430 (7.35-7.45) 12/28/23 09:02 ABG pCO2 40.0 mmHg (35.0-45.0) 12/28/23 09:02 ABG pO2 65.0 mmHg (80.0-100.0) L 12/28/23 09:02 ABG HCO3 26.5 mmol/L (22-26) H 12/28/23 09:02 ABG O2 Saturation 93.0 % (90-100) 12/28/23 09:02 ABG Base Excess 2.0 mmol/L (-2.0-2.0) 12/28/23 09:02 Tristan Test Pos 12/28/23 09:02 A-a Gradient 35.0 mmHg 12/28/23 09:02 FiO2 21.0 12/28/23 09:02 Blood Gas Comments Pt talya well. kg 12/28/23 09:02 Sodium 144 mmol/L (136-145) 12/28/23 05:33 Corrected Sodium 147 mmol/L (136-145) H 12/28/23 05:33 Potassium 3.6 mmol/L (3.5-5.1) 12/28/23 05:33 Chloride 107 mmol/L (98-107) 12/28/23 05:33 Carbon Dioxide 25.4 mmol/L (21-32) 12/28/23 05:33 BUN 16 mg/dL (7-18) 12/28/23 05:33 Creatinine 1.07 mg/dL (0.70-1.30) 12/28/23 05:33 Est GFR (MDRD) Af Amer > 60 (>60) 12/28/23 05:33 Est GFR (MDRD) Non-Af > 60 (>60) 12/28/23 05:33 Glucose 245 mg/dL (65-99) H 12/28/23 05:33 POC Glucose (mg/dL) 255 mg/dL (65-99) H 12/28/23 05:10 Calcium 7.5 mg/dL (8.5-10.1) L 12/28/23 05:33 Corrected Calcium 8.6 mg/dL (8.5-10.1) 12/28/23 05:33 Magnesium 1.9 mg/dL (2.0-2.9) L 12/28/23 05:33 Total Bilirubin 0.30 mg/dL (0.2-1.0) 12/28/23 05:33 AST 28 Units/L (15-37) 12/28/23 05:33 ALT 73 Units/L (12-78) 12/28/23 05:33 Alkaline Phosphatase 74 Units/L (46-116) 12/28/23 05:33 Total Protein 5.5 g/dL (6.4-8.2) L 12/28/23 05:33 Albumin 2.6 g/dL (3.4-5.0) L 12/28/23 05:33 Globulin 2.9 g/dL (2.5-4.5) 12/28/23 05:33 Albumin/Globulin Ratio 0.9 Ratio (1.1-2.1) L 12/28/23 05:33 Specimen Type Clean catch urine 12/25/23 11:04 Urine Color Pale yellow (YELLOW) 12/25/23 11:04 Urine Appearance Clear (CLEAR) 12/25/23 11:04 Urine pH 7.0 (5.0 - 8.0) 12/25/23 11:04 Ur Specific [place] 1.010 (1.000-1.030) 12/25/23 11:04 Urine Protein 1+ (NEGATIVE) 12/25/23 11:04 Urine Glucose (UA) Negative (NEGATIVE) 12/25/23 11:04 Urine Ketones Negative (NEGATIVE) 12/25/23 11:04 Urine Blood Negative (NEGATIVE) 12/25/23 11:04 Urine Nitrite Negative (NEGATIVE) 12/25/23 11:04 Urine Bilirubin Negative (NEGATIVE) 12/25/23 11:04 Urine Urobilinogen Normal (NORMAL) 12/25/23 11:04 Ur Leukocyte Esterase Negative (NEGATIVE) 12/25/23 11:04 Urine RBC 0-2 /HPF (0-3) 12/25/23 11:04 Urine WBC 0-2 /HPF (0-5) 12/25/23 11:04 Ur Squamous Epith Cells Negative /HPF (NEGATIVE) 12/25/23 11:04 Urine Bacteria Trace /HPF (NEGATIVE) 12/25/23 11:04 Ur Culture Indicated? Yes/culture set up 12/25/23 11:04 Urine Opiates Screen Negative (NEG=<300) 12/25/23 11:04 Urine Methadone Screen Negative (NEG=<300) 12/25/23 11:04 Ur Barbiturates Screen Negative (NEG=<200) 12/25/23 11:04 Ur Phencyclidine Scrn Negative (NEG=<25) 12/25/23 11:04 Ur Amphetamines Screen Positive (NEG=<1000) 12/25/23 11:04 U Benzodiazepines Scrn Negative (NEG=<200) 12/25/23 11:04 Urine Cocaine Screen Negative (NEG=<300) 12/25/23 11:04 U Marijuana (THC) Screen Positive (NEG=<50) A 12/25/23 11:04 SARS-CoV-2 (PCR) Negative (NEGATIVE) 12/25/23 03:33 Influenza Type A (PCR) Negative (NEGATIVE) 12/25/23 03:33 Influenza Type B (PCR) Negative (NEGATIVE) 12/25/23 03:33 RSV (PCR) Negative (NEGATIVE) 12/25/23 03:33 Resp Viral Panel (PCR) See scanned report 12/25/23 08:10 S. pyogenes (TEM-PCR) Not detected (NOT DETECT) 12/25/23 03:33 Review of Systems Constitutional: Chills and Weakness Eyes: No Symptoms Reported ENT: No Symptoms Reported Respiratory: Cough and Wheezing Cardiovascular: No Symptoms Reported Gastrointestinal: denies Diarrhea or Constipation Genitourinary: No Symptoms Reported Musculoskeletal: No Symptoms Reported Skin: No Symptoms Reported Neurological: No Symptoms Reported Oriented: Normal Eyes: Normal Nose: Discharge Respiratory: Wheezes Throughout Cardiovascular: Tachycardia Auscultation: Bowel Sounds: Normal Palpation: Normal Skin: Normal Musculoskeletal: Normal Psychiatric: Anxiety Affect: Anxious Speech Pattern: Clear Assessment/Plan (1) Pneumonia: Narrative Support Text: ADMIT, BLOOD AND SPUTUM CULTURE ORDERED ON ADMISSION IV HYDRATION, CTA CHEST RO PE SUPPLEMENTAL O2 SOLU MEDROL BP MONITORING VERIFY HOME MEDICATION RESP THERAPY, VIRAL RESP SWAB ORDERED ON ADMISSION Status: Acute (2) Hypoxemia: Status: Acute (3) Bilateral pleural effusion: Status: Acute
== END 2023-12-28 09:55 | disposition home or self-care (01) ==
LOC: MED/SURG 03:10 → ER 03:10 → MED/SURG 09:49
PROVIDERS: ADMIT Internal Medicine; ATTEND Internal Medicine
DX: J18.8 Other pneumonia, unspecified organism; R06.02 Shortness of breath; I10 Essential (primary) hypertension; Z59.41 Food insecurity; Z59.02 Unsheltered homelessness; R51.9 Headache, unspecified; Z20.822 Contact with and (suspected) exposure to COVID-19; Z91.190 Patient's noncompliance with other medical treatment and regimen due to financial hardship; J90 Pleural effusion, not elsewhere classified; E83.42 Hypomagnesemia; E11.65 Type 2 diabetes mellitus with hyperglycemia; E83.51 Hypocalcemia; R09.2 Respiratory arrest; F15.90 Other stimulant use, unspecified, uncomplicated; Z59.87 Material hardship due to limited financial resources, not elsewhere classified; Z59.82 Transportation insecurity; F20.89 Other schizophrenia; F12.90 Cannabis use, unspecified, uncomplicated

== ENCOUNTER 2023-12-29 02:35 | Inpatient (IN) ==
--- NOTE | 2023-12-29 03:02 | DR.EXTPAIN ---
HPI Time seen Time Seen by Provider: 12/29/23 03:01 PCP Primary Care Physician: AMINA HPI Comment HPI Comment: chest pain, increasing sob and coughing blood. Patient was discharged home today but progressively got worse. He denies fever, dysuria or vomiting. Coughing and having bloody sputum. Complaint/Symptoms Chief Complaint:: PT STATED HE HAS PNEUMONIA, HE CAN'T BREATHE HAS BEEN COUGHING UP BLOOD, BODYACHES AND A HEADACHE WITH FEVER. Self Treatment fo Chief Complaint: ANTIBIOTICS Nurses notes reviewed Nurses Notes Review: Yes Source History Provided: Patient Mode of arrival Mode of Arrival: Ambulatory Timing Onset of Chief Complaint: 12/29/23 PMH PMH Past Medical History: Yes Past Medical History: Anxiety, Asthma, Depression, Diabetes, Dyslipidemia, Migraines, Hypertension, Kidney Stones and Schizophrenia Past Surgical History: Yes Surgical History: Ortho Surgery Family History History of Family Medical Conditions: Yes Family Medical History: Hypertension Social History Have you used tobacco products in the last 12 months: Yes Type of Tobacco Use: Cigarettes Does any household member use tobacco: No Alcohol Use: None Do you use any recreational Drugs:: Yes (MARIJUANA) Lives With: Alone Lives Where: Home Infectious screening In the last 2 months have you had wt loss of >10#?: NO Have you had fever, night sweats or hemotysis?: No Have you traveled outside the country in the last 6 months?: No Isolation: Droplet ROS Review of Systems Constitutional: Fever, Weakness and Fatigue Eyes: No Symptoms Reported ENTM: Nose Discharge and Nose Congestion; negative Throat Pain Respiratoy: Moist Cough and Short of Breath; negative Wheezing Cardiovascular: No Symptoms Reported, Chest Pain and Palpitations; negative Edema Gastrointestinal/Abdominal: negative Abdominal Pain, Diarrhea, Nausea or Vomiting Genitourinary: No Symptoms Reported; negative Dysuria Neurological: No Symptoms Reported Musculoskeletal: No Symptoms Reported Integumentary: No Symptoms Reported Hematologic/Lymphatic: No Symptoms Reported Endocrine: No Symptoms Reported Psychiatric: No Symptoms Reported All Other Systems: Reviewed and Negative PE Vital Signs Vitals: Vital Signs Temperature 97.6 F Pulse Rate 107 Pulse Rate 104 Pulse Rate 103 Pulse Rate 106 Pulse Rate 109 Pulse Rate 101 Pulse Rate 104 Pulse Rate 107 Pulse Rate 113 Pulse Rate 99 Pulse Rate 119 Pulse Rate 102 Pulse Rate 102 Pulse Rate 99 Pulse Rate 99 Pulse Rate 102 Pulse Rate 102 Pulse Rate 100 Pulse Rate 99 Pulse Rate 102 Pulse Rate 97 Pulse Rate 99 Pulse Rate 99 Pulse Rate 102 Pulse Rate 102 Pulse Rate 102 Pulse Rate 107 Respiratory Rate 35 Respiratory Rate 18 Respiratory Rate 30 Respiratory Rate 27 Respiratory Rate 29 Respiratory Rate 32 Respiratory Rate 24 Respiratory Rate 24 Respiratory Rate 35 Respiratory Rate 33 Respiratory Rate 30 Respiratory Rate 40 Respiratory Rate 29 Respiratory Rate 34 Respiratory Rate 30 Respiratory Rate 31 Respiratory Rate 26 Respiratory Rate 27 Respiratory Rate 27 Respiratory Rate 24 Respiratory Rate 24 Respiratory Rate 27 Respiratory Rate 23 Respiratory Rate 24 Respiratory Rate 31 Respiratory Rate 21 Respiratory Rate 25 Respiratory Rate 20 Blood Pressure 148/81 Blood Pressure 147/87 Blood Pressure 157/90 Blood Pressure 157/90 Blood Pressure 159/84 Blood Pressure 159/84 Blood Pressure 174/90 Blood Pressure 151/72 Blood Pressure 151/72 Blood Pressure 145/78 Blood Pressure 163/97 Blood Pressure 163/97 Blood Pressure 155/84 Blood Pressure 155/84 Blood Pressure 157/106 Blood Pressure 157/89 O2 Sat by Pulse Oximetry 90 O2 Sat by Pulse Oximetry 96 O2 Sat by Pulse Oximetry 95 O2 Sat by Pulse Oximetry 92 O2 Sat by Pulse Oximetry 96 O2 Sat by Pulse Oximetry 96 O2 Sat by Pulse Oximetry 97 O2 Sat by Pulse Oximetry 95 O2 Sat by Pulse Oximetry 91 O2 Sat by Pulse Oximetry 97 O2 Sat by Pulse Oximetry 95 O2 Sat by Pulse Oximetry 95 O2 Sat by Pulse Oximetry 97 O2 Sat by Pulse Oximetry 96 O2 Sat by Pulse Oximetry 97 O2 Sat by Pulse Oximetry 100 O2 Sat by Pulse Oximetry 96 O2 Sat by Pulse Oximetry 96 O2 Sat by Pulse Oximetry 95 O2 Sat by Pulse Oximetry 89 O2 Sat by Pulse Oximetry 94 O2 Sat by Pulse Oximetry 94 O2 Sat by Pulse Oximetry 94 General Limitations: No Limitations General Appearance: Alert and In Distress Head Head Exam: Normal Inspection and Atraumatic Eyes Eye exam: Normal Appearance; negative Scleral Icterus or Conjunctival Injection ENT ENT Exam: Normal Exam, Normal Oropharynx, Normal External Ear Exam and TM's Normal Bilaterally Neck Neck Exam: Normal Inspection and Trachea Midline; negative Tenderness Chest Chest Inspection: Normal Inspection and Symmetric Chest Wall Rise; negative Tenderness Respiratory Respiratory Exam: Accessory Muscle Use and Respiratory Distress; negative Chest Wall Tenderness Cardiovascular Cardiovascular Exam: Tachycardia; negative Systolic Murmur or Diastolic Murmur Abdominal Exam Abdominal Exam: Normal Inspection, Normal Bowel Sounds and Soft; negative Tenderness Extremities Extremities Exam: Normal Inspection and Normal Capillary Refill; negative Calf Tenderness Back Back Exam: Normal Inspection; negative (R) CVA Tenderness or (L) CVA Tenderness Neurological Neurological Exam: Alert and Oriented X3; negative Motor Sensory Deficit Psychiatric Psychiatric Exam: Normal Affect and Normal Mood Skin Skin Exam: Warm and Intact; negative Rash MDM Differential Diagnosis Differential Diagnosis: Other (hypoxia, pneumonia, bronchitis, chest pain) COURSE Treatment Treatment: See orders done while patient was in ER. Labs, EKG and Xray discus sed. Patient was admitted to hospital for further management. Consultation Consultation Comments: Discussed patient with dr. Romano. He will admit artur lane. Education/Counseling Education/Counseling: Patient Educated On: Treatment ROR Labs Reviewed Laboratory Results Reviewed?: Yes 12/29/23 03:25 12/29/23 03:25 Laboratory: WBC 14.6 X10^3/uL (3.6-10.0) H 12/29/23 03:25 RBC 5.20 X10^6/uL (4.7-6.0) 12/29/23 03:25 Hgb 14.9 g/dL (13.5-18.0) D 12/29/23 03:25 Hct 45.7 % (42.0-54.0) 12/29/23 03:25 MCV 87.9 fL (80.0-100.0) 12/29/23 03:25 MCH 28.6 pg (27.0-34.0) 12/29/23 03:25 MCHC 32.6 g/dL (33.0-35.0) L 12/29/23 03:25 RDW 15.4 % (11.6-16.5) 12/29/23 03:25 Plt Count 281 X10^3/uL (150.0-450.0) 12/29/23 03:25 MPV 8.6 fL (7.4-11.0) 12/29/23 03:25 Neut % (Auto) 75.2 % (42.0-75.0) H 12/29/23 03:25 Lymph % (Auto) 17.4 % (21.0-51.0) L 12/29/23 03:25 [place] % (Auto) 6.8 % (0.0-13.0) 12/29/23 03:25 Eos % (Auto) 0.3 % (0.9-2.9) L 12/29/23 03:25 Baso % (Auto) 0.3 % (0.2-1.0) 12/29/23 03:25 Neut # (Auto) 11.0 x10^3/uL (2.2-4.8) H 12/29/23 03:25 Lymph # (Auto) 2.5 X10^3/uL (1.3-2.9) 12/29/23 03:25 Gilliam # (Auto) 1.0 x10^3/uL (0.3-0.8) H 12/29/23 03:25 Eos # (Auto) 0.0 x10^3/uL (0.0-0.2) 12/29/23 03:25 Baso # (Auto) 0.0 X10^3/uL (0.0-0.1) 12/29/23 03:25 Absolute Nucleated RBC 0.1 /100WBC 12/29/23 03:25 D-Dimer 0.41 ug/ml (0.0-0.57) 12/29/23 03:25 Sample Site Lr 12/29/23 03:17 ABG pH 7.480 (7.35-7.45) H 12/29/23 03:17 ABG pCO2 38.0 mmHg (35.0-45.0) 12/29/23 03:17 ABG pO2 49.0 mmHg (80.0-100.0) L* 12/29/23 03:17 ABG HCO3 28.3 mmol/L (22-26) H 12/29/23 03:17 ABG O2 Saturation 87.0 % (90-100) L 12/29/23 03:17 ABG Base Excess 4.6 mmol/L (-2.0-2.0) H 12/29/23 03:17 Tristan Test Pos 12/29/23 03:17 A-a Gradient 53.0 mmHg 12/29/23 03:17 FiO2 21.0 12/29/23 03:17 Blood Gas Comments John well ae 12/29/23 03:17 Sodium 145 mmol/L (136-145) 12/29/23 03:25 Corrected Sodium 146 mmol/L (136-145) H 12/29/23 03:25 Potassium 3.3 mmol/L (3.5-5.1) L 12/29/23 03:25 Chloride 106 mmol/L (98-107) 12/29/23 03:25 Carbon Dioxide 28.2 mmol/L (21-32) 12/29/23 03:25 BUN 19 mg/dL (7-18) H 12/29/23 03:25 Creatinine 1.05 mg/dL (0.70-1.30) 12/29/23 03:25 Est GFR (MDRD) Af Amer > 60 (>60) 12/29/23 03:25 Est GFR (MDRD) Non-Af > 60 (>60) 12/29/23 03:25 Glucose 126 mg/dL (65-99) H 12/29/23 03:25 Calcium 7.6 mg/dL (8.5-10.1) L 12/29/23 03:25 Corrected Calcium 8.3 mg/dL (8.5-10.1) L 12/29/23 03:25 Total Bilirubin 0.90 mg/dL (0.2-1.0) 12/29/23 03:25 AST 53 Units/L (15-37) H 12/29/23 03:25 ALT 167 Units/L (12-78) H 12/29/23 03:25 Alkaline Phosphatase 83 Units/L (46-116) 12/29/23 03:25 Creatine Kinase 240 Units/L (39-308) 12/29/23 03:25 Troponin I High Sens 80.2 ng/L (4.0-60.0) H* 12/29/23 05:50 B-Natriuretic Peptide 222 pg/mL (0-79) H 12/29/23 03:25 Total Protein 5.8 g/dL (6.4-8.2) L 12/29/23 03:25 Albumin 3.1 g/dL (3.4-5.0) L 12/29/23 03:25 Globulin 2.7 g/dL (2.5-4.5) 12/29/23 03:25 Albumin/Globulin Ratio 1.1 Ratio (1.1-2.1) 12/29/23 03:25 Specimen Type Clean catch urine 12/29/23 05:17 Urine Color Yellow (YELLOW) 12/29/23 05:17 Urine Appearance Clear (CLEAR) 12/29/23 05:17 Urine pH 6.5 (5.0 - 8.0) 12/29/23 05:17 Ur Specific [place] 1.020 (1.000-1.030) 12/29/23 05:17 Urine Protein Negative (NEGATIVE) 12/29/23 05:17 Urine Glucose (UA) Negative (NEGATIVE) 12/29/23 05:17 Urine Ketones Negative (NEGATIVE) 12/29/23 05:17 Urine Blood Negative (NEGATIVE) 12/29/23 05:17 Urine Nitrite Negative (NEGATIVE) 12/29/23 05:17 Urine Bilirubin Negative (NEGATIVE) 12/29/23 05:17 Urine Urobilinogen Normal (NORMAL) 12/29/23 05:17 Ur Leukocyte Esterase Negative (NEGATIVE) 12/29/23 05:17 Urine Opiates Screen Negative (NEG=<300) 12/29/23 05:17 Urine Methadone Screen Negative (NEG=<300) 12/29/23 05:17 Ur Barbiturates Screen Negative (NEG=<200) 12/29/23 05:17 Ur Phencyclidine Scrn Negative (NEG=<25) 12/29/23 05:17 Ur Amphetamines Screen Negative (NEG=<1000) 12/29/23 05:17 U Benzodiazepines Scrn Negative (NEG=<200) 12/29/23 05:17 Urine Cocaine Screen Negative (NEG=<300) 12/29/23 05:17 U Marijuana (THC) Screen Negative (NEG=<50) 12/29/23 05:17 SARS-CoV-2 (PCR) Negative (NEGATIVE) 12/29/23 03:13 Influenza Type A (PCR) Negative (NEGATIVE) 12/29/23 03:13 Influenza Type B (PCR) Negative (NEGATIVE) 12/29/23 03:13 RSV (PCR) Negative (NEGATIVE) 12/29/23 03:13 S. pyogenes (TEM-PCR) Not detected (NOT DETECT) 12/29/23 03:13 XRAY XRAY Interpreted by: Radiologist (report noted.) and Self EKG Rate: 101 [place]: Normal Rhythm: ST Block: None Hypertrophy: None ST: Normal Opioid Opioid Risk Tool Age (Josias box if 16-45): Yes History of Preadolescent Sexual Abuse: No Total: 1 Total Score Risk Category: Low Risk Copyright: Henriquez LR predicting aberrant behaviors Discharge Plan Diagnosis Discharge Problem: Hypoxia, Elevated troponin Pneumonia Qualifiers: Pneumonia type: due to unspecified organism Laterality: bilateral Lung location: lower lobe of lung Qualified Code(s): J18.9 - Pneumonia, unspecified organism CHF (congestive heart failure) Qualifiers: Heart failure type: combined systolic and diastolic Heart failure chronicity: acute on chronic Qualified Code(s): I50.43 - Acute on chronic combined systolic (congestive) and diastolic (congestive) heart failure Discharge Plan Patient Disposition: 09 ADMITTED INPATIENT Condition: Stable Prescriptions: No Action amoxicillin 875 mg tablet 875 mg PO BID Qty: 20 0RF benzonatate 200 mg capsule 200 mg PO TID PRN (Reason: cough) 7 Days Qty: 20 0RF doxycycline hyclate 100 mg Capsule 100 mg PO BID Qty: 20 0RF albuterol sulfate [ProAir HFA] 90 mcg/actuation Hfa Aerosol Inhaler 2 puff INHALATION Q6H PRNQty: 1 0RF Health Concerns: Post Hospitalization: new medications and changes needed to prevent readmission or further decline. Pt educated and given instructions on all concerns. Plan of Treatment: Continue with present treatment and follow up plan. Pt is to keep follow up appointment as instructed and take medications as ordered. Follow ups/Referrals Follow ups/Referrals: NFD,None [Primary Care Provider] - 3 days Instructions Stand Alone Forms: Post Hospital Follow Up Care
[2023-12-29 03:23] LABS: ABG BASE EXCESS 4.6 mmol/L (-2.0-2.0); ABG HCO3 28.3 mmol/L (22-26)
--- NOTE | 2023-12-29 03:23 | EKG ---
Test Reason : CHEST PAIN Blood Pressure : */* mmHG Vent. Rate : 101 BPM Atrial Rate : 101 BPM P-R Int : 126 ms QRS Dur : 82 ms QT Int : 348 ms P-R-T Axes : 53 48 79 degrees QTc Int : 451 ms Sinus tachycardia Nonspecific T wave abnormality Abnormal ECG No previous ECGs available Confirmed by Primo Curran MD ([id number]) on 12/29/2023 9:31:18 AM Referred By: Confirmed By: Primo Curran MD
[2023-12-29 03:24] LABS: ABG ALLEN TEST POS
[2023-12-29 03:40] LABS: BASOPHILS % (AUTO) 0.3 % (0.2-1.0); EOSINOPHILS % (AUTO) 0.3 % (0.9-2.9); HEMATOCRIT 45.7 % (42.0-54.0); LYMPHOCYTES # (AUTO) 2.5 X10^3/uL (1.3-2.9); LYMPHOCYTES % (AUTO) 17.4 % (21.0-51.0); MEAN CORPUSCULAR HEMOGLOBIN 28.6 pg (27.0-34.0); MEAN CORPUSCULAR HGB CONC 32.6 g/dL (33.0-35.0); MEAN CORPUSCULAR VOLUME 87.9 fL (80.0-100.0); MEAN PLATELET VOLUME 8.6 fL (7.4-11.0); MONOCYTES % (AUTO) 6.8 % (0.0-13.0); NEUTROPHILS % (AUTO) 75.2 % (42.0-75.0); PLATELET COUNT 281 X10^3/uL (150.0-450.0); RED CELL DISTRIBUTION WIDTH 15.4 % (11.6-16.5); WHITE BLOOD COUNT 14.6 X10^3/uL (3.6-10.0)
[2023-12-29 03:50] LABS: ALANINE AMINOTRANSFERASE 167 Units/L (12-78); ALBUMIN 3.1 g/dL (3.4-5.0); ALKALINE PHOSPHATASE 83 Units/L (46-116); ASPARTATE AMINO TRANSFERASE 53 Units/L (15-37); BLOOD UREA NITROGEN 19 mg/dL (7-18); CALCIUM 7.6 mg/dL (8.5-10.1); CARBON DIOXIDE 28.2 mmol/L (21-32); CHLORIDE 106 mmol/L (98-107); COR CA(FOR HYPOALB) 8.3 mg/dL (8.5-10.1); COR NA(FOR HYPERGLY) 146 mmol/L (136-145); CREATININE 1.05 mg/dL (0.70-1.30); GLUCOSE 126 mg/dL (65-99); HEMOGLOBIN 14.9 g/dL (13.5-18.0); POTASSIUM 3.3 mmol/L (3.5-5.1); SODIUM 145 mmol/L (136-145); TOTAL PROTEIN 5.8 g/dL (6.4-8.2); eGFR NON BLACK RACES > 60 (>60)
[2023-12-29 03:50] LABS: STREP A BY PCR NOT DETECTED (NOT DETECT)
[2023-12-29] MEDS ORDERED: NS 1,000 ML IV 1,000 ML ONE (03:56)
[2023-12-29] MEDS: NS 1,000 ML IV 1,000 ML IV SCH (04:01)
[2023-12-29] MEDS ORDERED: LEVAQUIN PREMIX IV 750 MG 750 MG/150 ML BAG IV ONE (04:02)
[2023-12-29] MEDS: LEVAQUIN PREMIX IV 750 MG 750 MG/150 ML BAG IV ONE (04:04)
[2023-12-29] MEDS ORDERED: K-DUR TAB 20 MEQ PO ONE (04:31)
[2023-12-29] MEDS: KLOR-CON PO SCH (04:35)
[2023-12-29] MEDS: K-DUR TAB 20 MEQ PO ONE ×2 (04:38→11:07)
[2023-12-29 05:22] LABS: BILIRUBIN,URINE NEGATIVE (NEGATIVE); BLOOD/HEMOGLOBIN,URINE NEGATIVE (NEGATIVE); GLUCOSE, URINE NEGATIVE (NEGATIVE); KETONES,URINE NEGATIVE (NEGATIVE); LEUKOCYTE ESTERASE ,URINE NEGATIVE (NEGATIVE); NITRITES,URINE NEGATIVE (NEGATIVE); PH,URINE 6.5 (5.0 - 8.0); PROTEIN,URINE NEGATIVE (NEGATIVE); UROBILINOGEN,URINE NORMAL (NORMAL)
[2023-12-29 05:23] LABS: APPEARANCE,URINE CLEAR (CLEAR); COLOR,URINE YELLOW (YELLOW)
[2023-12-29] MEDS ORDERED: TESSALON PERLES PO ONE (05:40)
[2023-12-29] MEDS ORDERED: ZOFRAN INJ 4 MG VIAL ONE (05:40)
[2023-12-29] MEDS: KLOR-CON PO ONE (05:47)
[2023-12-29] MEDS: ZOFRAN INJ 4 MG VIAL IVP ONE (05:50)
[2023-12-29] MEDS: TESSALON PERLES PO ONE (05:50)
--- NOTE | 2023-12-29 06:56 | RAD ---
PROCEDURE: Chest X-ray 1 View. HISTORY: Hemoptysis and dyspnea with myalgias and fever. TECHNIQUE: AP portable done at 3:35 a.m.. COMPARISON: 12/28/2023. TECHNICAL QUALITY: Satisfactory. FINDINGS: Normal size heart. Mediastinum and hilar regions show no masses or lymphadenopathy. Normal central vascularity. Patchy pneumonia both mid and lower lung becker greatest on the left that is increased since previous study. No pleural fluid or pneumothorax. No acute bony abnormality. IMPRESSION: Increasing pneumonia bilaterally greatest on the left. THIS IS AN ELECTRONICALLY VERIFIED FINAL REPORT 12/29/2023 6:53 AM - Electronically signed by Maninder Tinoco MD
[2023-12-29] MEDS ORDERED: TORADOL 30 MG VIAL ONE (07:06)
[2023-12-29] MEDS: TORADOL 30 MG VIAL IVP ONE (07:11)
[2023-12-29] MEDS: NS 100 ML IV 100 ML ONE (08:14)
[2023-12-29] MEDS: OMNIPAQUE 350 mg/mL 100 mL BTL 100 ML ONE (08:15)
--- NOTE | 2023-12-29 08:58 | CT ---
EXAM:CTA, CHESTHISTORY:HYPOXIA; 75 ML OMNI 350COMPARISON:None available.TECHNIQUE:Multiple axial images of the chest were obtained from the thoracic inlet to the upper abdomen after the administration of IV contrast. 3D reconstructions utilizing axial MIPS imaging was performed and reviewed. Dose reduction techniques including Automated Exposure Control (AEC) and adjustment of mA and kV were utilized.FINDINGS:The mediastinum does not demonstrate significant pathological lymphadenopathy. There is no paracardial effusion observed. The thoracic aorta is normal in its contour without evidence for aneurysmal dilatation. The central pulmonary arterial system does not demonstrate central filling defects to suggest pulmonary emboli.Evaluation of the lung parenchyma demonstrates small pleural effusions layering throughout the right and left hemithorax with scattered ground-glass opacities that maybe on the basis of developing pulmonary edema versus atypical infectious etiologies and acute pneumonitis. No pulmonary nodule or mass can be identified. The bony thorax is unremarkable in its appearance . The visualized portions of the upper abdomen are grossly unremarkable .IMPRESSION:No evidence for acute pulmonary emboli.Diffuse ground-glass opacity throughout the right and left hemithorax are observed with small bilateral pleural effusions as above.THIS IS AN ELECTRONICALLY VERIFIED FINAL REPORT12/29/2023 8:55 AM - Electronically signed by Jean Paul Cheng MD
[2023-12-29 09:38] VITALS: BMI 30.2
[2023-12-29] MEDS ORDERED: ZITHROMAX INJ 500 MG VIAL IV ONE (10:26)
[2023-12-29] MEDS ORDERED: CONSULT PHARMACY - POTASSIUM & MAGNESIUM XX SCH (11:00)
[2023-12-29] MEDS: ROBITUSSIN DM PO SCH (11:05)
[2023-12-29] MEDS: SOLU-Medrol 125 MG VIAL IVP SCH (11:06)
[2023-12-29] MEDS: ZITHROMAX INJ 500 MG VIAL 500 MG in NS 250 ML IV 250 ML IV SCH (11:06)
[2023-12-29] MEDS: MAG-OX TAB PO SCH (11:07)
[2023-12-29] MEDS: PROTONIX INJ 40 MG VIAL IVP SCH (11:07)
[2023-12-29] MEDS: VIBRAMYCIN 100 MG in D5W 250 ML IV 250 ML IV SCH (11:07)
[2023-12-29] MEDS: K-DUR TAB 20 MEQ PO SCH (11:07)
[2023-12-29] MEDS: INVanz INJ 1 GRAM VIAL 1 G in NS 100 ML IV 100 ML IV SCH (11:07)
[2023-12-29] MEDS: LASIX IVP SCH (11:08)
[2023-12-29] MEDS ORDERED: MORPHINE SULFATE INJ 2 MG INJ ONE (13:07)
[2023-12-29] MEDS: MORPHINE SULFATE INJ 2 MG INJ IVP PRN (13:17)
[2023-12-29] MEDS: XOPENEX 1.25 MG/3 ML NEBULE NEB SCH (13:30)
[2023-12-29] MEDS: NovoLIN R (or HumuLIN R) SUBCUT PRN (17:27)
--- NOTE | 2023-12-29 18:02 | DR.H&P ---
H&P History & Physical for Day of: H&P Date: 12/29/23 Chief Complaint Chief Complaint: SOB Allergies Allergies Allergy/AdvReac Type Severity Reaction Status Date / Time lisinopril Allergy Verified 12/29/23 04:51 History of Present Illness History of Present Illness: PT IS 38 BM, ER ADMISSION AFTER PRESENTING WITH CO SOB. PT WAS RELEASED THIS MORNING AFTER TREATMENT OF PNEUMONIA AND HYPOXIA. PT HAS CLEAR CXR AND IMPROVED RA ABG THIS AM. PT REPORTS HE FELT OK UPON DISCHARGE AND THEN SOB WORSENED. PT RETURNED TO ER WITH MARKED SOB AND DECREASED PO2 ON ARRIVAL. PT HAD REPEAT CXR IN ER WITH PNEUMONIA. PT ADMITTED FOR TREATMENT OF ACUTE ILLLNESS. Past Medical History Past Medical History: Anxiety, Asthma, Depression, Diabetes, Dyslipidemia, Migraines, Hypertension, Kidney Stones and Schizophrenia Past Surgical History Surgical History: Ortho Surgery Family History Family Medical History: Diabetes Mellitus, Cancer, Heart Failure and Hypertension Social History Have you used tobacco products in the last 12 months: Yes Type of Tobacco Use: Cigarettes Does any household member use tobacco: Yes Alcohol Use: Occasionally Drug Use: Marijuana Labs 12/29/23 03:25 12/29/23 03:25 Labs: Laboratory WBC 14.6 X10^3/uL (3.6-10.0) H 12/29/23 03:25 RBC 5.20 X10^6/uL (4.7-6.0) 12/29/23 03:25 Hgb 14.9 g/dL (13.5-18.0) D 12/29/23 03:25 Hct 45.7 % (42.0-54.0) 12/29/23 03:25 MCV 87.9 fL (80.0-100.0) 12/29/23 03:25 MCH 28.6 pg (27.0-34.0) 12/29/23 03:25 MCHC 32.6 g/dL (33.0-35.0) L 12/29/23 03:25 RDW 15.4 % (11.6-16.5) 12/29/23 03:25 Plt Count 281 X10^3/uL (150.0-450.0) 12/29/23 03:25 MPV 8.6 fL (7.4-11.0) 12/29/23 03:25 Neut % (Auto) 75.2 % (42.0-75.0) H 12/29/23 03:25 Lymph % (Auto) 17.4 % (21.0-51.0) L 12/29/23 03:25 [place] % (Auto) 6.8 % (0.0-13.0) 12/29/23 03:25 Eos % (Auto) 0.3 % (0.9-2.9) L 12/29/23 03:25 Baso % (Auto) 0.3 % (0.2-1.0) 12/29/23 03:25 Neut # (Auto) 11.0 x10^3/uL (2.2-4.8) H 12/29/23 03:25 Lymph # (Auto) 2.5 X10^3/uL (1.3-2.9) 12/29/23 03:25 [place] # (Auto) 1.0 x10^3/uL (0.3-0.8) H 12/29/23 03:25 Eos # (Auto) 0.0 x10^3/uL (0.0-0.2) 12/29/23 03:25 Baso # (Auto) 0.0 X10^3/uL (0.0-0.1) 12/29/23 03:25 Absolute Nucleated RBC 0.1 /100WBC 12/29/23 03:25 D-Dimer 0.41 ug/ml (0.0-0.57) 12/29/23 03:25 Sample Site Lr 12/29/23 03:17 ABG pH 7.480 (7.35-7.45) H 12/29/23 03:17 ABG pCO2 38.0 mmHg (35.0-45.0) 12/29/23 03:17 ABG pO2 49.0 mmHg (80.0-100.0) L* 12/29/23 03:17 ABG HCO3 28.3 mmol/L (22-26) H 12/29/23 03:17 ABG O2 Saturation 87.0 % (90-100) L 12/29/23 03:17 ABG Base Excess 4.6 mmol/L (-2.0-2.0) H 12/29/23 03:17 Tristan Test Pos 12/29/23 03:17 A-a Gradient 53.0 mmHg 12/29/23 03:17 FiO2 21.0 12/29/23 03:17 Blood Gas Comments John well ae 12/29/23 03:17 Sodium 145 mmol/L (136-145) 12/29/23 03:25 Corrected Sodium 146 mmol/L (136-145) H 12/29/23 03:25 Potassium 3.3 mmol/L (3.5-5.1) L 12/29/23 03:25 Chloride 106 mmol/L (98-107) 12/29/23 03:25 Carbon Dioxide 28.2 mmol/L (21-32) 12/29/23 03:25 BUN 19 mg/dL (7-18) H 12/29/23 03:25 Creatinine 1.05 mg/dL (0.70-1.30) 12/29/23 03:25 Est GFR (MDRD) Af Amer > 60 (>60) 12/29/23 03:25 Est GFR (MDRD) Non-Af > 60 (>60) 12/29/23 03:25 Glucose 126 mg/dL (65-99) H 12/29/23 03:25 POC Glucose (mg/dL) 265 mg/dL (65-99) H 12/29/23 16:00 Calcium 7.6 mg/dL (8.5-10.1) L 12/29/23 03:25 Corrected Calcium 8.3 mg/dL (8.5-10.1) L 12/29/23 03:25 Magnesium 1.8 mg/dL (2.0-2.9) L 12/29/23 05:50 Total Bilirubin 0.90 mg/dL (0.2-1.0) 12/29/23 03:25 AST 53 Units/L (15-37) H 12/29/23 03:25 ALT 167 Units/L (12-78) H 12/29/23 03:25 Alkaline Phosphatase 83 Units/L (46-116) 12/29/23 03:25 Creatine Kinase 240 Units/L (39-308) 12/29/23 03:25 Troponin I High Sens 53.8 ng/L (4.0-60.0) 12/29/23 14:10 B-Natriuretic Peptide 222 pg/mL (0-79) H 12/29/23 03:25 Total Protein 5.8 g/dL (6.4-8.2) L 12/29/23 03:25 Albumin 3.1 g/dL (3.4-5.0) L 12/29/23 03:25 Globulin 2.7 g/dL (2.5-4.5) 12/29/23 03:25 Albumin/Globulin Ratio 1.1 Ratio (1.1-2.1) 12/29/23 03:25 Specimen Type Clean catch urine 12/29/23 05:17 Urine Color Yellow (YELLOW) 12/29/23 05:17 Urine Appearance Clear (CLEAR) 12/29/23 05:17 Urine pH 6.5 (5.0 - 8.0) 12/29/23 05:17 Ur Specific [place] 1.020 (1.000-1.030) 12/29/23 05:17 Urine Protein Negative (NEGATIVE) 12/29/23 05:17 Urine Glucose (UA) Negative (NEGATIVE) 12/29/23 05:17 Urine Ketones Negative (NEGATIVE) 12/29/23 05:17 Urine Blood Negative (NEGATIVE) 12/29/23 05:17 Urine Nitrite Negative (NEGATIVE) 12/29/23 05:17 Urine Bilirubin Negative (NEGATIVE) 12/29/23 05:17 Urine Urobilinogen Normal (NORMAL) 12/29/23 05:17 Ur Leukocyte Esterase Negative (NEGATIVE) 12/29/23 05:17 Urine Opiates Screen Negative (NEG=<300) 12/29/23 05:17 Urine Methadone Screen Negative (NEG=<300) 12/29/23 05:17 Ur Barbiturates Screen Negative (NEG=<200) 12/29/23 05:17 Ur Phencyclidine Scrn Negative (NEG=<25) 12/29/23 05:17 Ur Amphetamines Screen Negative (NEG=<1000) 12/29/23 05:17 U Benzodiazepines Scrn Negative (NEG=<200) 12/29/23 05:17 Urine Cocaine Screen Negative (NEG=<300) 12/29/23 05:17 U Marijuana (THC) Screen Negative (NEG=<50) 12/29/23 05:17 SARS-CoV-2 (PCR) Negative (NEGATIVE) 12/29/23 03:13 Influenza Type A (PCR) Negative (NEGATIVE) 12/29/23 03:13 Influenza Type B (PCR) Negative (NEGATIVE) 12/29/23 03:13 RSV (PCR) Negative (NEGATIVE) 12/29/23 03:13 S. pyogenes (TEM-PCR) Not detected (NOT DETECT) 12/29/23 03:13 Review of Systems Constitutional: No Symptoms Reported Eyes: No Symptoms Reported Respiratory: Shortness of Breath Cardiovascular: Palpitations Gastrointestinal: No Symptoms Reported Musculoskeletal: No Symptoms Reported Skin: No Symptoms Reported Neurological: No Symptoms Reported Physical Exam Vital Signs: Vital Signs Temperature 98.3 F Temperature 98.0 F Pulse Rate [Left Radial] 94 Pulse Rate [Left Radial] 90 Pulse Rate 98 Respiratory Rate 20 Respiratory Rate 20 Respiratory Rate 20 Respiratory Rate 20 Blood Pressure [Left Arm] 155/88 Blood Pressure [Left Arm] 145/76 O2 Sat by Pulse Oximetry 90 O2 Sat by Pulse Oximetry 91 O2 Sat by Pulse Oximetry 95 Oriented: Normal Eyes: Normal Throat: Dry Respiratory: RLL Diminished and LLL Diminished Cardiovascular: Tachycardia Auscultation: Bowel Sounds: Normal Tenderness: Normal Skin: Normal Musculoskeletal: Normal Psychiatric: Anxiety Affect: Anxious Speech Pattern: Clear and Appropriate Assessment/Plan (1) Pneumonia: Qualifiers: Laterality: bilateral Lung location: lower lobe of lung Pneumonia type: due to unspecified organism Qualified Code(s): J18.9 - Pneumonia, unspecified organism Narrative Support Text: ADMIT, SERIAL CE AND EKG ECHO, ADMISSION LABS SUPPLEMENTAL O2 IV HYDRATION, STRICT I&OS BP CONTROL Status: Acute (2) Hypoxia: Status: Acute (3) Elevated troponin: Status: Acute
[2023-12-29] MEDS: SNACK - Diabetic Appropriate PO SCH (20:21)
[2023-12-29] MEDS: NORCO 5/325 MG TAB PO PRN (20:23)
[2023-12-29] MEDS: PULMICORT NEB TX 0.5 MG NEB SCH (20:43)
[2023-12-29] MEDS: PULMICORT NEB TX 0.5 MG NEB ONE (21:30)
[2023-12-30 06:23] LABS: BASOPHILS % (AUTO) 0.1 % (0.2-1.0); HEMOGLOBIN 13.9 g/dL (13.5-18.0); LYMPHOCYTES % (AUTO) 5.9 % (21.0-51.0); MEAN CORPUSCULAR HEMOGLOBIN 28.4 pg (27.0-34.0); MEAN CORPUSCULAR HGB CONC 32.4 g/dL (33.0-35.0); MEAN CORPUSCULAR VOLUME 87.8 fL (80.0-100.0); MEAN PLATELET VOLUME 9.1 fL (7.4-11.0); MONOCYTES # (AUTO) 0.3 x10^3/uL (0.3-0.8); MONOCYTES % (AUTO) 1.7 % (0.0-13.0); NEUTROPHILS # (AUTO) 16.2 x10^3/uL (2.2-4.8); NEUTROPHILS % (AUTO) 92.3 % (42.0-75.0); PLATELET COUNT 277 X10^3/uL (150.0-450.0); RED BLOOD COUNT 4.89 X10^6/uL (4.7-6.0); RED CELL DISTRIBUTION WIDTH 14.9 % (11.6-16.5); WHITE BLOOD COUNT 17.6 X10^3/uL (3.6-10.0)
[2023-12-30 06:30] LABS: INR 1.22 (0.8-1.3)
[2023-12-30 06:37] LABS: ALANINE AMINOTRANSFERASE 116 Units/L (12-78); ALBUMIN 2.4 g/dL (3.4-5.0); ALKALINE PHOSPHATASE 81 Units/L (46-116); ASPARTATE AMINO TRANSFERASE 19 Units/L (15-37); BLOOD UREA NITROGEN 16 mg/dL (7-18); CALCIUM 7.3 mg/dL (8.5-10.1); CARBON DIOXIDE 24.5 mmol/L (21-32); CHLORIDE 106 mmol/L (98-107); COR CA(FOR HYPOALB) 8.6 mg/dL (8.5-10.1); COR NA(FOR HYPERGLY) 145 mmol/L (136-145); CREATININE 0.92 mg/dL (0.70-1.30); GLUCOSE 245 mg/dL (65-99); POTASSIUM 3.7 mmol/L (3.5-5.1); SODIUM 142 mmol/L (136-145); TOTAL PROTEIN 5.4 g/dL (6.4-8.2); eGFR NON BLACK RACES > 60 (>60)
[2023-12-30 07:20] LABS: BAND NEUTROPHILS % 1 % (0-10); PLATELET MORPHOLOGY COMMENT NORMAL (NORMAL)
[2023-12-30] MEDS: INVanz INJ 1 GRAM VIAL 1 G in NS 100 ML IV 100 ML IV SCH (11:09)
[2023-12-30] MEDS ORDERED: ZITHROMAX INJ 500 MG VIAL IV ONE (13:14)
[2023-12-30] MEDS: ZITHROMAX INJ 500 MG VIAL 500 MG in NS 250 ML IV 250 ML IV SCH (13:47)
--- NOTE | 2023-12-31 05:09 | RAD ---
EXAM: CHEST, 1 VIEW HISTORY: PNEUMONIA; HTN, DM, ASTHMA, MIGRAINES SX: ORTHO COMPARISON: 01/06/2024 FINDINGS: The cardiomediastinal silhouette is stable. Improving aeration in the lungs. No pneumothorax or effusion. No acute osseous abnormality. IMPRESSION: Improving aeration in the lungs. THIS IS AN ELECTRONICALLY VERIFIED FINAL REPORT 12/31/2023 5:06 AM - Electronically signed by Constantino Aguilar MD
[2023-12-31 06:10] LABS: BASOPHILS # (AUTO) 0.1 X10^3/uL (0.0-0.1); BASOPHILS % (AUTO) 0.3 % (0.2-1.0); HEMATOCRIT 41.7 % (42.0-54.0); HEMOGLOBIN 13.7 g/dL (13.5-18.0); LYMPHOCYTES # (AUTO) 0.9 X10^3/uL (1.3-2.9); LYMPHOCYTES % (AUTO) 4.1 % (21.0-51.0); MEAN CORPUSCULAR HEMOGLOBIN 28.6 pg (27.0-34.0); MEAN CORPUSCULAR HGB CONC 32.8 g/dL (33.0-35.0); MEAN CORPUSCULAR VOLUME 87.2 fL (80.0-100.0); MEAN PLATELET VOLUME 9.2 fL (7.4-11.0); MONOCYTES # (AUTO) 0.4 x10^3/uL (0.3-0.8); NEUTROPHILS # (AUTO) 19.6 x10^3/uL (2.2-4.8); NEUTROPHILS % (AUTO) 93.6 % (42.0-75.0); PLATELET COUNT 258 X10^3/uL (150.0-450.0); RED BLOOD COUNT 4.78 X10^6/uL (4.7-6.0); RED CELL DISTRIBUTION WIDTH 14.9 % (11.6-16.5)
[2023-12-31 06:27] LABS: ALANINE AMINOTRANSFERASE 94 Units/L (12-78); ALBUMIN 2.5 g/dL (3.4-5.0); ALKALINE PHOSPHATASE 78 Units/L (46-116); ASPARTATE AMINO TRANSFERASE 11 Units/L (15-37); BLOOD UREA NITROGEN 14 mg/dL (7-18); CALCIUM 7.4 mg/dL (8.5-10.1); CHLORIDE 107 mmol/L (98-107); COR CA(FOR HYPOALB) 8.6 mg/dL (8.5-10.1); COR NA(FOR HYPERGLY) 146 mmol/L (136-145); GLUCOSE 294 mg/dL (65-99); POTASSIUM 4.2 mmol/L (3.5-5.1); SODIUM 141 mmol/L (136-145); TOTAL PROTEIN 5.5 g/dL (6.4-8.2); eGFR NON BLACK RACES > 60 (>60)
[2023-12-31 06:36] LABS: BAND NEUTROPHILS % 2 % (0-10); PLATELET MORPHOLOGY COMMENT NORMAL (NORMAL)
[2023-12-31 12:04] VITALS: BP 153/88; PULSE 88; RESP 18; TEMP 97.7; O2SAT 94
--- NOTE | 2024-01-04 18:02 | PCM.PROG ---
Progress Note Progress Note for Day of Date of Exam: 12/30/23 Subjective Subjective: PT IS 38 BM, ER ADMISSION AFTER PRESENTING WITH CO SOB, HEMOPYTOSIS. PT WAS HOSPITALIZED AND RELEASED ON 12/28/23 AFTER TREATMENT OF PNEUMONIA AND HYPOXIA. PT HAD CLEAR CXR AND IMPROVED RA ABG PRIOR TO DISCHARGE. PATIENT RETURNED TO ER AFTER MIDNIGHT ON 12/29/23 AND HAD DECREASED PO2 AND CXR WITH PNEUMONIA. HE WAS RE-ADMITTED FOR FURTHER WORKUP AND TREATMENT. MORNING LABS: HGB 13.9, BUN 16/CREATININE 0.95, WBC 17.6. MORNING VITALS: 160/87-92-18-97.8-91% ROOM AIR. UPON ADMISSION, PT HAD SERIAL CARDIAC ENZYMES- 77.8, 80.2, 53.8. WE OBTAINED AN ECHO, WHICH REVEALED AN EF OF 43%. Past Medical Family Social History Allergies: Allergies lisinopril Allergy (Verified 12/29/23 04:51) Vital Signs and I&O's Vital Signs: Vital Signs Temperature 97.8 F Temperature 97.8 F Pulse Rate [Left Radial] 92 Pulse Rate [Left Radial] 92 Pulse Rate 104 Respiratory Rate 20 Respiratory Rate 18 Respiratory Rate 18 Respiratory Rate 20 Blood Pressure [Left Arm] 160/87 Blood Pressure [Left Arm] 140/81 O2 Sat by Pulse Oximetry 94 O2 Sat by Pulse Oximetry 91 O2 Sat by Pulse Oximetry 93 Intake and Output: Intake & Output 12/27/23 12/28/23 12/29/23 12/30/23 11:59 11:59 11:59 11:59 Intake Total 250 / 250 2694 / 2694 Output Total 525 / 525 Balance -275 / -275 2694 / 2694 Physical Exam Oriented: Normal Eyes: Normal Throat: Dry Cardiovascular: Tachycardia Auscultation: Bowel Sounds: Normal Tenderness: Normal Skin: Normal Musculoskeletal: Normal Psychiatric: Anxiety Affect: Anxious Speech Pattern: Clear and Appropriate Laboratory and Diagnostics 12/31/23 05:20 12/31/23 05:20 Labs: Laboratory WBC 17.6 X10^3/uL (3.6-10.0) H 12/30/23 05:26 RBC 4.89 X10^6/uL (4.7-6.0) 12/30/23 05:26 Hgb 13.9 g/dL (13.5-18.0) 12/30/23 05:26 Hct 43.0 % (42.0-54.0) 12/30/23 05:26 MCV 87.8 fL (80.0-100.0) 12/30/23 05:26 MCH 28.4 pg (27.0-34.0) 12/30/23 05:26 MCHC 32.4 g/dL (33.0-35.0) L 12/30/23 05:26 RDW 14.9 % (11.6-16.5) 12/30/23 05:26 Plt Count 277 X10^3/uL (150.0-450.0) 12/30/23 05:26 Plt Count Comment Adequate (ADEQUATE) 12/30/23 05:26 MPV 9.1 fL (7.4-11.0) 12/30/23 05:26 Neut % (Auto) 92.3 % (42.0-75.0) H 12/30/23 05:26 Lymph % (Auto) 5.9 % (21.0-51.0) L 12/30/23 05:26 [place] % (Auto) 1.7 % (0.0-13.0) 12/30/23 05:26 Eos % (Auto) 0.0 % (0.9-2.9) L 12/30/23 05:26 Baso % (Auto) 0.1 % (0.2-1.0) L 12/30/23 05:26 Neut # (Auto) 16.2 x10^3/uL (2.2-4.8) H 12/30/23 05:26 Lymph # (Auto) 1.0 X10^3/uL (1.3-2.9) L 12/30/23 05:26 [place] # (Auto) 0.3 x10^3/uL (0.3-0.8) 12/30/23 05:26 Eos # (Auto) 0.0 x10^3/uL (0.0-0.2) 12/30/23 05:26 Baso # (Auto) 0.0 X10^3/uL (0.0-0.1) 12/30/23 05:26 Absolute Nucleated RBC 0.0 /100WBC 12/30/23 05:26 Total Counted 100 12/30/23 05:26 Neutrophils % (Manual) 86 % (39-76) H 12/30/23 05:26 Band Neutrophils % 1 % (0-10) 12/30/23 05:26 Lymphocytes % (Manual) 11 % (13-43) L 12/30/23 05:26 Monocytes % (Manual) 2 % (4-9) L 12/30/23 05:26 Plt Morphology Comment Normal (NORMAL) 12/30/23 05:26 RBC Morphology Normal (NORMAL) 12/30/23 05:26 PT 15.2 SECONDS (11.8-14.3) 12/30/23 05:26 INR Target Range - 12/30/23 05:26 INR 1.22 (0.8-1.3) 12/30/23 05:26 D-Dimer 0.41 ug/ml (0.0-0.57) 12/29/23 03:25 Sample Site Lr 12/29/23 03:17 ABG pH 7.480 (7.35-7.45) H 12/29/23 03:17 ABG pCO2 38.0 mmHg (35.0-45.0) 12/29/23 03:17 ABG pO2 49.0 mmHg (80.0-100.0) L* 12/29/23 03:17 ABG HCO3 28.3 mmol/L (22-26) H 12/29/23 03:17 ABG O2 Saturation 87.0 % (90-100) L 12/29/23 03:17 ABG Base Excess 4.6 mmol/L (-2.0-2.0) H 12/29/23 03:17 Tristan Test Pos 12/29/23 03:17 A-a Gradient 53.0 mmHg 12/29/23 03:17 FiO2 21.0 12/29/23 03:17 Blood Gas Comments John well ae 12/29/23 03:17 Sodium 142 mmol/L (136-145) 12/30/23 05:26 Corrected Sodium 145 mmol/L (136-145) 12/30/23 05:26 Potassium 3.7 mmol/L (3.5-5.1) 12/30/23 05:26 Chloride 106 mmol/L (98-107) 12/30/23 05:26 Carbon Dioxide 24.5 mmol/L (21-32) 12/30/23 05:26 BUN 16 mg/dL (7-18) 12/30/23 05:26 Creatinine 0.92 mg/dL (0.70-1.30) 12/30/23 05:26 Est GFR (MDRD) Af Amer > 60 (>60) 12/30/23 05:26 Est GFR (MDRD) Non-Af > 60 (>60) 12/30/23 05:26 Glucose 245 mg/dL (65-99) H 12/30/23 05:26 POC Glucose (mg/dL) 220 mg/dL (65-99) H 12/30/23 05:26 Calcium 7.3 mg/dL (8.5-10.1) L 12/30/23 05:26 Corrected Calcium 8.6 mg/dL (8.5-10.1) 12/30/23 05:26 Magnesium 2.2 mg/dL (2.0-2.9) 12/30/23 05:26 Total Bilirubin 0.50 mg/dL (0.2-1.0) 12/30/23 05:26 AST 19 Units/L (15-37) 12/30/23 05:26 ALT 116 Units/L (12-78) H 12/30/23 05:26 Alkaline Phosphatase 81 Units/L (46-116) 12/30/23 05:26 Creatine Kinase 240 Units/L (39-308) 12/29/23 03:25 Troponin I High Sens 53.8 ng/L (4.0-60.0) 12/29/23 14:10 B-Natriuretic Peptide 222 pg/mL (0-79) H 12/29/23 03:25 Total Protein 5.4 g/dL (6.4-8.2) L 12/30/23 05:26 Albumin 2.4 g/dL (3.4-5.0) L 12/30/23 05:26 Globulin 3.0 g/dL (2.5-4.5) 12/30/23 05:26 Albumin/Globulin Ratio 0.8 Ratio (1.1-2.1) L 12/30/23 05:26 Specimen Type Clean catch urine 12/29/23 05:17 Urine Color Yellow (YELLOW) 12/29/23 05:17 Urine Appearance Clear (CLEAR) 12/29/23 05:17 Urine pH 6.5 (5.0 - 8.0) 12/29/23 05:17 Ur Specific [place] 1.020 (1.000-1.030) 12/29/23 05:17 Urine Protein Negative (NEGATIVE) 12/29/23 05:17 Urine Glucose (UA) Negative (NEGATIVE) 12/29/23 05:17 Urine Ketones Negative (NEGATIVE) 12/29/23 05:17 Urine Blood Negative (NEGATIVE) 12/29/23 05:17 Urine Nitrite Negative (NEGATIVE) 12/29/23 05:17 Urine Bilirubin Negative (NEGATIVE) 12/29/23 05:17 Urine Urobilinogen Normal (NORMAL) 12/29/23 05:17 Ur Leukocyte Esterase Negative (NEGATIVE) 12/29/23 05:17 Urine Opiates Screen Negative (NEG=<300) 12/29/23 05:17 Urine Methadone Screen Negative (NEG=<300) 12/29/23 05:17 Ur Barbiturates Screen Negative (NEG=<200) 12/29/23 05:17 Ur Phencyclidine Scrn Negative (NEG=<25) 12/29/23 05:17 Ur Amphetamines Screen Negative (NEG=<1000) 12/29/23 05:17 U Benzodiazepines Scrn Negative (NEG=<200) 12/29/23 05:17 Urine Cocaine Screen Negative (NEG=<300) 12/29/23 05:17 U Marijuana (THC) Screen Negative (NEG=<50) 12/29/23 05:17 SARS-CoV-2 (PCR) Negative (NEGATIVE) 12/29/23 03:13 Influenza Type A (PCR) Negative (NEGATIVE) 12/29/23 03:13 Influenza Type B (PCR) Negative (NEGATIVE) 12/29/23 03:13 RSV (PCR) Negative (NEGATIVE) 12/29/23 03:13 S. pyogenes (TEM-PCR) Not detected (NOT DETECT) 12/29/23 03:13 Plan (1) Pneumonia: Status: Acute Qualifiers: Laterality: bilateral Lung location: lower lobe of lung Pneumonia type: due to unspecified organism Qualified Code(s): J18.9 - Pneumonia, unspecified organism Plan: ADMIT, SERIAL CE AND EKG ECHO, ADMISSION LABS SUPPLEMENTAL O2 IV HYDRATION, STRICT I&OS BP CONTROL (2) Hypoxia: Status: Acute (3) Elevated troponin: Status: Acute
--- NOTE | 2024-01-04 18:03 | PCM.DCPLAN ---
DISCHARGE SUMMARY Admission Date Date of Admission: 12/29/23 Discharge Date Discharge Date: 12/31/23 Admission Diagnoses (1) Pneumonia: Status: Acute (2) Hypoxia: Status: Acute (3) Elevated troponin: Status: Acute Discharge Diagnoses Discharge Diagnosis: SAME ADMISSION Discharge Medications Discharge Medications: Prescriptions: Hospital Course Latest Lab Results: Laboratory Last Values WBC 21.0 X10^3/uL (3.6-10.0) H 12/31/23 05:20 RBC 4.78 X10^6/uL (4.7-6.0) 12/31/23 05:20 Hgb 13.7 g/dL (13.5-18.0) 12/31/23 05:20 Hct 41.7 % (42.0-54.0) L 12/31/23 05:20 MCV 87.2 fL (80.0-100.0) 12/31/23 05:20 MCH 28.6 pg (27.0-34.0) 12/31/23 05:20 MCHC 32.8 g/dL (33.0-35.0) L 12/31/23 05:20 RDW 14.9 % (11.6-16.5) 12/31/23 05:20 Plt Count 258 X10^3/uL (150.0-450.0) 12/31/23 05:20 Plt Count Comment Adequate (ADEQUATE) 12/31/23 05:20 MPV 9.2 fL (7.4-11.0) 12/31/23 05:20 Neut % (Auto) 93.6 % (42.0-75.0) H 12/31/23 05:20 Lymph % (Auto) 4.1 % (21.0-51.0) L 12/31/23 05:20 [place] % (Auto) 2.0 % (0.0-13.0) 12/31/23 05:20 Eos % (Auto) 0.0 % (0.9-2.9) L 12/31/23 05:20 Baso % (Auto) 0.3 % (0.2-1.0) 12/31/23 05:20 Neut # (Auto) 19.6 x10^3/uL (2.2-4.8) H 12/31/23 05:20 Lymph # (Auto) 0.9 X10^3/uL (1.3-2.9) L 12/31/23 05:20 [place] # (Auto) 0.4 x10^3/uL (0.3-0.8) 12/31/23 05:20 Eos # (Auto) 0.0 x10^3/uL (0.0-0.2) 12/31/23 05:20 Baso # (Auto) 0.1 X10^3/uL (0.0-0.1) 12/31/23 05:20 Absolute Nucleated RBC 0.0 /100WBC 12/31/23 05:20 Total Counted 100 12/31/23 05:20 Neutrophils % (Manual) 89 % (39-76) H 12/31/23 05:20 Band Neutrophils % 2 % (0-10) 12/31/23 05:20 Lymphocytes % (Manual) 6 % (13-43) L 12/31/23 05:20 Monocytes % (Manual) 3 % (4-9) L 12/31/23 05:20 Plt Morphology Comment Normal (NORMAL) 12/31/23 05:20 RBC Morphology Normal (NORMAL) 12/31/23 05:20 PT 15.2 SECONDS (11.8-14.3) 12/30/23 05:26 INR Target Range - 12/30/23 05:26 INR 1.22 (0.8-1.3) 12/30/23 05:26 D-Dimer 0.41 ug/ml (0.0-0.57) 12/29/23 03:25 Sample Site Lr 12/29/23 03:17 ABG pH 7.480 (7.35-7.45) H 12/29/23 03:17 ABG pCO2 38.0 mmHg (35.0-45.0) 12/29/23 03:17 ABG pO2 49.0 mmHg (80.0-100.0) L* 12/29/23 03:17 ABG HCO3 28.3 mmol/L (22-26) H 12/29/23 03:17 ABG O2 Saturation 87.0 % (90-100) L 12/29/23 03:17 ABG Base Excess 4.6 mmol/L (-2.0-2.0) H 12/29/23 03:17 Tristan Test Pos 12/29/23 03:17 A-a Gradient 53.0 mmHg 12/29/23 03:17 FiO2 21.0 12/29/23 03:17 Blood Gas Comments John well ae 12/29/23 03:17 Sodium 141 mmol/L (136-145) 12/31/23 05:20 Corrected Sodium 146 mmol/L (136-145) H 12/31/23 05:20 Potassium 4.2 mmol/L (3.5-5.1) 12/31/23 05:20 Chloride 107 mmol/L (98-107) 12/31/23 05:20 Carbon Dioxide 23.0 mmol/L (21-32) 12/31/23 05:20 BUN 14 mg/dL (7-18) 12/31/23 05:20 Creatinine 0.90 mg/dL (0.70-1.30) 12/31/23 05:20 Est GFR (MDRD) Af Amer > 60 (>60) 12/31/23 05:20 Est GFR (MDRD) Non-Af > 60 (>60) 12/31/23 05:20 Glucose 294 mg/dL (65-99) H 12/31/23 05:20 POC Glucose (mg/dL) 250 mg/dL (65-99) H 12/31/23 10:53 Calcium 7.4 mg/dL (8.5-10.1) L 12/31/23 05:20 Corrected Calcium 8.6 mg/dL (8.5-10.1) 12/31/23 05:20 Magnesium 2.2 mg/dL (2.0-2.9) 12/30/23 05:26 Total Bilirubin 0.30 mg/dL (0.2-1.0) 12/31/23 05:20 AST 11 Units/L (15-37) L 12/31/23 05:20 ALT 94 Units/L (12-78) H 12/31/23 05:20 Alkaline Phosphatase 78 Units/L (46-116) 12/31/23 05:20 Creatine Kinase 240 Units/L (39-308) 12/29/23 03:25 Troponin I High Sens 53.8 ng/L (4.0-60.0) 12/29/23 14:10 B-Natriuretic Peptide 222 pg/mL (0-79) H 12/29/23 03:25 Total Protein 5.5 g/dL (6.4-8.2) L 12/31/23 05:20 Albumin 2.5 g/dL (3.4-5.0) L 12/31/23 05:20 Globulin 3.0 g/dL (2.5-4.5) 12/31/23 05:20 Albumin/Globulin Ratio 0.8 Ratio (1.1-2.1) L 12/31/23 05:20 Specimen Type Clean catch urine 12/29/23 05:17 Urine Color Yellow (YELLOW) 12/29/23 05:17 Urine Appearance Clear (CLEAR) 12/29/23 05:17 Urine pH 6.5 (5.0 - 8.0) 12/29/23 05:17 Ur Specific [place] 1.020 (1.000-1.030) 12/29/23 05:17 Urine Protein Negative (NEGATIVE) 12/29/23 05:17 Urine Glucose (UA) Negative (NEGATIVE) 12/29/23 05:17 Urine Ketones Negative (NEGATIVE) 12/29/23 05:17 Urine Blood Negative (NEGATIVE) 12/29/23 05:17 Urine Nitrite Negative (NEGATIVE) 12/29/23 05:17 Urine Bilirubin Negative (NEGATIVE) 12/29/23 05:17 Urine Urobilinogen Normal (NORMAL) 12/29/23 05:17 Ur Leukocyte Esterase Negative (NEGATIVE) 12/29/23 05:17 Urine Opiates Screen Negative (NEG=<300) 12/29/23 05:17 Urine Methadone Screen Negative (NEG=<300) 12/29/23 05:17 Ur Barbiturates Screen Negative (NEG=<200) 12/29/23 05:17 Ur Phencyclidine Scrn Negative (NEG=<25) 12/29/23 05:17 Ur Amphetamines Screen Negative (NEG=<1000) 12/29/23 05:17 U Benzodiazepines Scrn Negative (NEG=<200) 12/29/23 05:17 Urine Cocaine Screen Negative (NEG=<300) 12/29/23 05:17 U Marijuana (THC) Screen Negative (NEG=<50) 12/29/23 05:17 SARS-CoV-2 (PCR) Negative (NEGATIVE) 12/29/23 03:13 HIV Ag/Ab Combo Qual Negative (Negative) 12/29/23 12:04 Influenza Type A (PCR) Negative (NEGATIVE) 12/29/23 03:13 Influenza Type B (PCR) Negative (NEGATIVE) 12/29/23 03:13 RSV (PCR) Negative (NEGATIVE) 12/29/23 03:13 S. pyogenes (TEM-PCR) Not detected (NOT DETECT) 12/29/23 03:13 Hospital Course: PT IS 38 BM, ER ADMISSION AFTER PRESENTING WITH CO SOB, HEMOPYTOSIS. PT WAS HOSPITALIZED AND RELEASED ON 12/28/23 AFTER TREATMENT OF PNEUMONIA AND HYPOXIA. PT HAD CLEAR CXR AND IMPROVED RA ABG PRIOR TO DISCHARGE. PATIENT RETURNED TO ER AFTER MIDNIGHT ON 12/29/23 AND HAD DECREASED PO2 AND CXR WITH PNEUMONIA AND ELEVATED BNP OF 222. HE WAS RE-ADMITTED FOR FURTHER WORKUP AND TREATMENT. UPON ADMISSION, PT HAD SERIAL CARDIAC ENZYMES- 77.8, 80.2, 53.8. EKG SHOWED SINUS TACHYCARDIA, NONSPECIFIC T WAVE ABNORMALITY. BLOOD CULTURES WERE OBTAINED. WE ALSO OBTAINED AN ECHOCARDIOGRAM, WHICH REVEALED AN EF OF 43. HE DENIED HAVING ANY PREVIOUS CARDIAC WORKUP OR ANY KNOWN HISTORY OF HEART FAILURE. CTA CHEST SHOWED NO PE, DIFFUSE GROUND-GLASS OPACITY THROUGHOUT THE RIGHT AND LEFT HEMITHORAX ARE OBSERVED WITH SMALL BILATERAL PLEURAL EFFUSIONS. HE WAS TREATED WITH IV HYDRATION, ABX, CORTICOSTEROIDS, SUPPLEMENTAL 02 VIA NC AT 2L, RESPIRATORY THERAPY. HE DID HAVE ELEVATED GLUCOSE WITH A KNOWN HISTORY OF DIABETES AND COVERED WITH SLIDING SCALE INSULIN. HE HAD IMPROVEMENT OF RESPIRATORY SYMPTOMS AND WAS ABLE TO DISCONTINUE SUPPLEMENTAL. WE OBTAINED A REPEAT CHEST XRAY ON 12/31/23 THAT SHOWED IMPROVING AERATION IN THE LUNGS. BLOOD CULTURES SHOWED NO GROWTH. THE PATIENT REQUIRED TRANSFER TO [facility] FOR CARDIAC CATHERIZATION. THE PATIENT WAS INFORMED OF THE NEED FOR TRANSFER AND WAS AGREEABLE. HIS CONDITION WAS STABLE UPON TRANSFER. PLEASE SEE NURSING DOCUMENTATION FOR ACCEPTING PHYSICIAN AND FACILITY, AND ELECTRONIC MEDICAL RECORD FOR DIAGNOSTIC TESTS AND LABS.
== END 2023-12-31 13:00 | disposition short-term general hospital (02) | DRG 193 ==
LOC: ER 02:41 → MED/SURG 02:41 → OBSVTOIN 07:57 → MED/SURG 09:02
PROVIDERS: ADMIT Internal Medicine; ATTEND Internal Medicine

== ENCOUNTER 2024-02-01 09:05 | Inpatient (IN) ==
--- NOTE | 2024-02-01 09:19 | DR.GENAD ---
HPI Time Seen Time Seen by Provider: 02/01/24 09:18 PCP Primary Care Physician: AMINA Complaint/Symptoms Chief Complaint Doctors Comments: Coughing HAGEN and Sweating. Chief Complaint:: Patient states he was seen last week and diagnosed with pneumonia, but he signed out AMI prior to admission. He states he worked all week last week, awi=isma this AM with cough, headache, and sweating. COVID-19 Coronavirus risk:travel/contact w/high risk person: No Has patient experienced Coronavirus symptoms: Yes Coronavirus symptoms experienced: Fever, Coughing and Shortness of Breath Nurses notes reviewed Nurses Notes Review: Yes Source History Provided: Patient Mode of Arrival Mode of Arrival: Ambulatory Timing Onset of Chief Complaint: 02/01/24 PMH PMH Past Medical History: Yes Past Medical History: Anxiety, Asthma, Depression, Diabetes, Dyslipidemia, Migraines, Hypertension, Kidney Stones and Schizophrenia Past Surgical History: Yes Surgical History: Ortho Surgery Family History History of Family Medical Conditions: Yes Family Medical History: Diabetes Mellitus, Cancer, Heart Failure and Hypertension Social History Does patient currently use any type of tobacco product: Yes Have you used tobacco products in the last 12 months: Yes Type of Tobacco Use: Cigarettes Does any household member use tobacco: Yes Alcohol Use: Occasionally Do you use any recreational Drugs:: No Lives With: Alone Lives Where: Home Travel Risk Coronavirus risk:travel/contact w/high risk person: No Has patient experienced Coronavirus symptoms: Yes Coronavirus symptoms experienced: Fever, Coughing and Shortness of Breath Infectious screening In the last 2 months have you had wt loss of >10#?: NO Have you had fever, night sweats or hemotysis?: No Have you traveled outside the country in the last 6 months?: No Isolation: Standard ROS Review of Systems Constitutional: See HPI and Diaphoresis Eyes: No Symptoms Reported ENTM: No Symptoms Reported Respiratoy: See HPI, Non-Productive Cough and Short of Breath Cardiovascular: No Symptoms Reported Gastrointestinal/Abdominal: No Symptoms Reported Genitourinary: No Symptoms Reported Neurological: See HPI and Headache Musculoskeletal: No Symptoms Reported Integumentary: No Symptoms Reported Hematologic/Lymphatic: No Symptoms Reported Endocrine: No Symptoms Reported Psychiatric: No Symptoms Reported All Other Systems: Reviewed and Negative PE Vital Signs Vitals: Vital Signs Temperature 99 F Pulse Rate 113 Pulse Rate 112 Pulse Rate 111 Pulse Rate 112 Pulse Rate 113 Pulse Rate 116 Pulse Rate 113 Pulse Rate 117 Pulse Rate 123 Pulse Rate 119 Pulse Rate 118 Pulse Rate 124 Pulse Rate 123 Pulse Rate 126 Pulse Rate 119 Pulse Rate 118 Pulse Rate 130 Pulse Rate 131 Respiratory Rate 22 Respiratory Rate 22 Blood Pressure 144/97 Blood Pressure 144/97 Blood Pressure 145/88 Blood Pressure 148/87 Blood Pressure 150/100 Blood Pressure 156/97 Blood Pressure 152/101 Blood Pressure 152/101 O2 Sat by Pulse Oximetry 93 O2 Sat by Pulse Oximetry 93 O2 Sat by Pulse Oximetry 95 O2 Sat by Pulse Oximetry 92 O2 Sat by Pulse Oximetry 94 O2 Sat by Pulse Oximetry 94 O2 Sat by Pulse Oximetry 92 O2 Sat by Pulse Oximetry 92 O2 Sat by Pulse Oximetry 92 O2 Sat by Pulse Oximetry 92 O2 Sat by Pulse Oximetry 91 O2 Sat by Pulse Oximetry 88 O2 Sat by Pulse Oximetry 89 O2 Sat by Pulse Oximetry 92 O2 Sat by Pulse Oximetry 93 O2 Sat by Pulse Oximetry 91 O2 Sat by Pulse Oximetry 92 O2 Sat by Pulse Oximetry 91 General Limitations: No Limitations General Appearance: Alert and In No Apparent Distress Head Head Exam: Normal Inspection Eyes Eye exam: Normal Appearance ENT ENT Exam: Normal Exam External Ear Exam: Normal External Inspection TM/Canal Exam: Bilateral: Normal Nose Exam: Normal Nose Exam Mouth Exam: Normal Inspection Throat Exam: Normal Inspection Neck Neck Exam: Normal Inspection and Full ROM; negative Tenderness or Meningismus Chest Chest Inspection: Normal Inspection and Symmetric Chest Wall Rise Respiratory Respiratory Exam: Normal Lung Sounds Bilat; negative Accessory Muscle Use, Chest Wall Tenderness or Respiratory Distress Respiratory Exam: Bilateral: Clear to Auscultation Cardiovascular Cardiovascular Exam: Regular Rate and Normal Rhythm Abdominal Exam Abdominal Exam: Normal Inspection, Normal Bowel Sounds and Soft Extremities Extremities Exam: Normal Inspection Back Back Exam: Normal Inspection Neurologic Neurological Exam: Alert and Oriented X3 Psychiatric Psychiatric Exam: Normal Affect, Normal Mood and Anxious Skin Skin Exam: Warm, Intact, Normal Color and Diaphoresis MDM Differential Diagnosis Differential Diagnosis: pneumonia, URI, COURSE Treatment Treatment: See treatment while in ED. Consultation Call Returned: 11:05 Consultation Comments: Dr. Stovall agrees to admit patient Education/Counseling Education/Counseling: Patient Educated On: Treatment and Diagnosis ROR Labs Reviewed Laboratory Results Reviewed?: Yes 02/04/24 05:40 02/04/24 05:40 Laboratory: 02/02/24 02:20 Sputum - Expectorated Sputum Sputum Culture - Preliminary 02/02/24 02:20 Sputum - Expectorated Sputum - Final 02/01/24 09:53 Blood Blood Culture - Preliminary 02/01/24 09:47 Blood Blood Culture - Preliminary WBC 14.2 X10^3/uL (3.6-10.0) H 02/02/24 05:35 RBC 4.65 X10^6/uL (4.7-6.0) L 02/02/24 05:35 Hgb 13.3 g/dL (13.5-18.0) L 02/02/24 05:35 Hct 40.5 % (42.0-54.0) L 02/02/24 05:35 MCV 87.0 fL (80.0-100.0) 02/02/24 05:35 MCH 28.7 pg (27.0-34.0) 02/02/24 05:35 MCHC 33.0 g/dL (33.0-35.0) 02/02/24 05:35 RDW 14.0 % (11.6-16.5) 02/02/24 05:35 Plt Count 298 X10^3/uL (150.0-450.0) 02/02/24 05:35 MPV 8.6 fL (7.4-11.0) 02/02/24 05:35 Neut % (Auto) 83.8 % (42.0-75.0) H 02/02/24 05:35 Lymph % (Auto) 8.4 % (21.0-51.0) L 02/02/24 05:35 [place] % (Auto) 6.8 % (0.0-13.0) 02/02/24 05:35 Eos % (Auto) 0.3 % (0.9-2.9) L 02/02/24 05:35 Baso % (Auto) 0.7 % (0.2-1.0) 02/02/24 05:35 Neut # (Auto) 11.9 x10^3/uL (2.2-4.8) H 02/02/24 05:35 Lymph # (Auto) 1.2 X10^3/uL (1.3-2.9) L 02/02/24 05:35 [place] # (Auto) 1.0 x10^3/uL (0.3-0.8) H 02/02/24 05:35 Eos # (Auto) 0.0 x10^3/uL (0.0-0.2) 02/02/24 05:35 Baso # (Auto) 0.1 X10^3/uL (0.0-0.1) 02/02/24 05:35 Absolute Nucleated RBC 0.0 /100WBC 02/02/24 05:35 Sodium 139 mmol/L (136-145) 02/02/24 05:35 Corrected Sodium 141 mmol/L (136-145) 02/02/24 05:35 Potassium 3.8 mmol/L (3.5-5.1) 02/02/24 05:35 Chloride 105 mmol/L (98-107) 02/02/24 05:35 Carbon Dioxide 26.4 mmol/L (21-32) 02/02/24 05:35 BUN 13 mg/dL (7-18) 02/02/24 05:35 Creatinine 0.86 mg/dL (0.70-1.30) 02/02/24 05:35 Est GFR (MDRD) Af Amer > 60 (>60) 02/02/24 05:35 Est GFR (MDRD) Non-Af > 60 (>60) 02/02/24 05:35 Glucose 200 mg/dL (65-99) H 02/02/24 05:35 POC Glucose (mg/dL) 222 mg/dL (65-99) H 02/02/24 05:31 Lactic Acid 1.6 mmol/L (0.4-2.0) 02/01/24 11:46 Calcium 7.7 mg/dL (8.5-10.1) L 02/02/24 05:35 Corrected Calcium 9.2 mg/dL (8.5-10.1) 02/02/24 05:35 Magnesium 1.9 mg/dL (2.0-2.9) L 02/02/24 05:35 Total Bilirubin 0.80 mg/dL (0.2-1.0) 02/02/24 05:35 AST 17 Units/L (15-37) 02/02/24 05:35 ALT 50 Units/L (12-78) 02/02/24 05:35 Alkaline Phosphatase 96 Units/L (46-116) 02/02/24 05:35 Total Protein 5.9 g/dL (6.4-8.2) L 02/02/24 05:35 Albumin 2.1 g/dL (3.4-5.0) L 02/02/24 05:35 Globulin 3.8 g/dL (2.5-4.5) 02/02/24 05:35 Albumin/Globulin Ratio 0.6 Ratio (1.1-2.1) L 02/02/24 05:35 SARS-CoV-2 (PCR) Negative (NEGATIVE) 02/01/24 09:41 Influenza Type A (PCR) Negative (NEGATIVE) 02/01/24 09:41 Influenza Type B (PCR) Negative (NEGATIVE) 02/01/24 09:41 RSV (PCR) Negative (NEGATIVE) 02/01/24 09:41 Resp Viral Panel (PCR) See scanned report 02/01/24 13:17 Other Results Comments: Discussed report with patient XRAY XRAY Interpreted by: Radiologist and Self X-ray Results: Name: WOOD MONTES [facility]#: [id number] : 1985 Sex: M Location: ER Order Number(s): [id number] Procedure(s):CHEST, 1 VIEW X-RAY Ordering Physician: CHASTITY HUDSON Primary Care: NFZeenat Zarate Service Date: 02/01/24 Service Time: 926 EXAM: CHEST, 1 VIEW HISTORY: COUGH; COMPARISON: Prior study or studies were utilized for comparison during interpretation with the most relevant dated 01/27/2024 TECHNIQUE: CHEST, 1 VIEW FINDINGS: Chest: Lines and tubes: None Mediastinum: Cardiac and mediastinal shadow is within normal limits for size and contour. Pulmonary vessels: Pulmonary vasculature is obscured. Lung becker: Bilateral airspace consolidations are worsened compared to 5 days ago Pleura: No effusion. No pneumothorax. Bones and soft tissues: No acute osseous or soft tissue abnormality. IMPRESSION: 1. Worsening bilateral airspace opacities suggest pneumonia THIS IS AN ELECTRONICALLY VERIFIED FINAL REPORT 02/01/2024 10:36 AM - Electronically signed by Tomer Blankenship MD Report Electronically signed: 02/01/24 1040 CC: Chastity Hudson Opioid Opioid Risk Tool Age (Josias box if 16-45): No History of Preadolescent Sexual Abuse: No Total: 0 Total Score Risk Category: Low Risk Copyright: Martinez MARTINEZ predicting aberrant behaviors Discharge Plan Diagnosis Discharge Problem: Sepsis Qualifiers: Sepsis type: sepsis due to unspecified organism Sepsis acute organ dysfunction status: without acute organ dysfunction Qualified Code(s): A41.9 - Sepsis, unspecified organism Pneumonia Qualifiers: Pneumonia type: due to unspecified organism Laterality: bilateral Discharge Plan Patient Disposition: 09 ADMITTED INPATIENT Condition: Stable Prescription drug monitoring program results: PDMP reviewed and no concerns identified ADDITIONAL NOTES Additional Notes Additional Notes: patient admitted to services to Dr Stovall
[2024-02-01] MEDS: NS 1,000 ML IV 1,000 ML IV SCH (09:35)
[2024-02-01] MEDS: ROCEPHIN VIAL 1 GRAM 1 G in NS 100 ML IV 100 ML IV SCH (09:38)
[2024-02-01] MEDS: TORADOL 30 MG VIAL IVP ONE (09:47)
[2024-02-01] MEDS: DUONEB 0.5 MG/3 MG (3 mL) NEB ONE ×2 (09:48→10:12)
[2024-02-01 10:16] LABS: BASOPHILS # (AUTO) 0.1 X10^3/uL (0.0-0.1)
[2024-02-01 10:19] LABS: BASOPHILS % (AUTO) 0.6 % (0.2-1.0); EOSINOPHILS % (AUTO) 0.3 % (0.9-2.9); HEMATOCRIT 41.9 % (42.0-54.0); HEMOGLOBIN 13.7 g/dL (13.5-18.0); LYMPHOCYTES # (AUTO) 0.9 X10^3/uL (1.3-2.9); LYMPHOCYTES % (AUTO) 6.4 % (21.0-51.0); MEAN CORPUSCULAR HEMOGLOBIN 28.6 pg (27.0-34.0); MEAN CORPUSCULAR HGB CONC 32.7 g/dL (33.0-35.0); MEAN CORPUSCULAR VOLUME 87.6 fL (80.0-100.0); MEAN PLATELET VOLUME 8.8 fL (7.4-11.0); MONOCYTES # (AUTO) 1.2 x10^3/uL (0.3-0.8); MONOCYTES % (AUTO) 8.4 % (0.0-13.0); NEUTROPHILS # (AUTO) 12.4 x10^3/uL (2.2-4.8); NEUTROPHILS % (AUTO) 84.3 % (42.0-75.0); PLATELET COUNT 299 X10^3/uL (150.0-450.0); RED BLOOD COUNT 4.78 X10^6/uL (4.7-6.0); RED CELL DISTRIBUTION WIDTH 14.4 % (11.6-16.5); WHITE BLOOD COUNT 14.7 X10^3/uL (3.6-10.0)
[2024-02-01 10:24] LABS: ALANINE AMINOTRANSFERASE 71 Units/L (12-78); ALBUMIN 2.5 g/dL (3.4-5.0); ALKALINE PHOSPHATASE 138 Units/L (46-116); ASPARTATE AMINO TRANSFERASE 25 Units/L (15-37); BLOOD UREA NITROGEN 10 mg/dL (7-18); CARBON DIOXIDE 24.2 mmol/L (21-32); CHLORIDE 101 mmol/L (98-107); COR CA(FOR HYPOALB) 9.2 mg/dL (8.5-10.1); COR NA(FOR HYPERGLY) 139 mmol/L (136-145); CREATININE 0.94 mg/dL (0.70-1.30); GLUCOSE 130 mg/dL (65-99); POTASSIUM 3.6 mmol/L (3.5-5.1); SODIUM 138 mmol/L (136-145); TOTAL PROTEIN 6.4 g/dL (6.4-8.2); eGFR NON BLACK RACES > 60 (>60)
--- NOTE | 2024-02-01 10:40 | RAD ---
EXAM:CHEST, 1 VIEWHISTORY:COUGH;COMPARISON:Prior study or studies were utilized for comparison during interpretation with the most relevant dated 01/27/2024TECHNIQUE:CHEST, 1 VIEWFINDINGS:Chest:Lines and tubes: NoneMediastinum: Cardiac and mediastinal shadow is within normal limits for size and contour.Pulmonary vessels: Pulmonary vasculature is obscured.Lung becker: Bilateral airspace consolidations are worsened compared to 5 days agoPleura: No effusion. No pneumothorax.Bones and soft tissues: No acute osseous or soft tissue abnormality.IMPRESSION:1. Worsening bilateral airspace opacities suggest pneumoniaTHIS IS AN ELECTRONICALLY VERIFIED FINAL REPORT02/01/2024 10:36 AM - Electronically signed by Tomer Blankenship MD
[2024-02-01] MEDS ORDERED: DUONEB 0.5 MG/3 MG (3 mL) NEB ONE (12:46)
[2024-02-01] MEDS: LEVAQUIN PREMIX IV 750 MG 750 MG/150 ML BAG IV SCH (13:24)
[2024-02-01] MEDS: ROBITUSSIN DM PO SCH (13:27)
[2024-02-01 13:53] VITALS: BMI 28.5
[2024-02-01] MEDS ORDERED: CONSULT PHARMACY - POTASSIUM & MAGNESIUM XX SCH (14:00)
[2024-02-01] MEDS: ROCEPHIN VIAL 1 GRAM ONE (14:32)
[2024-02-01] MEDS: K-DUR TAB 20 MEQ PO ONE (14:32)
[2024-02-01] MEDS: DUONEB 0.5 MG/3 MG (3 mL) NEB SCH (16:25)
[2024-02-01] MEDS: NovoLIN R (or HumuLIN R) SUBCUT PRN (17:37)
[2024-02-01] MEDS: SNACK - Diabetic Appropriate PO SCH (20:15)
[2024-02-01] MEDS: PULMICORT NEB TX 0.5 MG NEB SCH (21:00)
[2024-02-01] MEDS: TUSSIONEX PENNKINETIC SUSP PO PRN (22:18)
[2024-02-01] MEDS: TYLENOL 325 MG TAB PO PRN (22:19)
[2024-02-02] MEDS: ROBITUSSIN DM PO SCH (03:05)
[2024-02-02 06:33] LABS: BASOPHILS # (AUTO) 0.1 X10^3/uL (0.0-0.1); BASOPHILS % (AUTO) 0.7 % (0.2-1.0); EOSINOPHILS % (AUTO) 0.3 % (0.9-2.9); HEMATOCRIT 40.5 % (42.0-54.0); HEMOGLOBIN 13.3 g/dL (13.5-18.0); LYMPHOCYTES # (AUTO) 1.2 X10^3/uL (1.3-2.9); LYMPHOCYTES % (AUTO) 8.4 % (21.0-51.0); MEAN CORPUSCULAR HEMOGLOBIN 28.7 pg (27.0-34.0); MEAN PLATELET VOLUME 8.6 fL (7.4-11.0); MONOCYTES % (AUTO) 6.8 % (0.0-13.0); NEUTROPHILS # (AUTO) 11.9 x10^3/uL (2.2-4.8); NEUTROPHILS % (AUTO) 83.8 % (42.0-75.0); PLATELET COUNT 298 X10^3/uL (150.0-450.0); RED BLOOD COUNT 4.65 X10^6/uL (4.7-6.0); WHITE BLOOD COUNT 14.2 X10^3/uL (3.6-10.0)
[2024-02-02 06:45] LABS: ALANINE AMINOTRANSFERASE 50 Units/L (12-78); ALBUMIN 2.1 g/dL (3.4-5.0); ALKALINE PHOSPHATASE 96 Units/L (46-116); ASPARTATE AMINO TRANSFERASE 17 Units/L (15-37); BLOOD UREA NITROGEN 13 mg/dL (7-18); CALCIUM 7.7 mg/dL (8.5-10.1); CARBON DIOXIDE 26.4 mmol/L (21-32); CHLORIDE 105 mmol/L (98-107); COR CA(FOR HYPOALB) 9.2 mg/dL (8.5-10.1); COR NA(FOR HYPERGLY) 141 mmol/L (136-145); CREATININE 0.86 mg/dL (0.70-1.30); GLUCOSE 200 mg/dL (65-99); MAGNESIUM 1.9 mg/dL (2.0-2.9); POTASSIUM 3.8 mmol/L (3.5-5.1); SODIUM 139 mmol/L (136-145); TOTAL PROTEIN 5.9 g/dL (6.4-8.2); eGFR NON BLACK RACES > 60 (>60)
[2024-02-02] MEDS ORDERED: CONSULT PHARMACY - POTASSIUM & MAGNESIUM XX SCH (08:00)
[2024-02-02] MEDS: MAG-OX TAB PO SCH (08:38)
[2024-02-02] MEDS: K-DUR TAB 20 MEQ PO SCH (08:39)
[2024-02-02] MEDS: VSL#3 PROBIOTIC CAP 112.5 B PO SCH (08:40)
[2024-02-02] MEDS ORDERED: ROCEPHIN VIAL 1 GRAM 1 G in NS 100 ML IV 100 ML IV SCH (09:00)
--- NOTE | 2024-02-02 11:13 | DR.H&P ---
H&P History & Physical for Day of: H&P Date: 02/01/24 Chief Complaint Chief Complaint: Cough and pneumonia Allergies Allergies Allergy/AdvReac Type Severity Reaction Status Date / Time lisinopril Allergy Verified 12/29/23 04:51 History of Present Illness History of Present Illness: This is a pleasant 38-year-old black male who presented to [facility] emergency department with complaints of coughing, headache and sweating. He has recently been diagnosed with pneumonia and was hospitalized here in [facility] 3 weeks ago. He was being treated for that but checked out AMA. Apparently, the patient has not had enough antibiotics to clear his pneumonia and has come back, and he is not able to work at his job and leave needs here locally. His chest x-ray today showing bilateral pneumonia and he is been mildly hypoxic with O2 sats 92% on room air when he came in. He has come up into the upper 90s on 2 L nasal cannula at this time. His white count shows he has a leukocytosis and an elevated neutrophil count. The patient is a diabetic type II as well. Past Medical History Past Medical History: Anxiety, Asthma, Depression, Diabetes, Dyslipidemia, Migraines, Hypertension, Kidney Stones and Schizophrenia Past Surgical History Surgical History: Ortho Surgery Family History Family Medical History: Diabetes Mellitus, Heart Failure and Hypertension Social History Does patient currently use any type of tobacco product: Yes Have you used tobacco products in the last 12 months: Yes Type of Tobacco Use: Cigarettes How many years tobacco product used: 30 Does any household member use tobacco: Yes Alcohol Use: None Drug Use: Marijuana and Other Medications Home Medications: Home Medications Medication Instructions Recorded Confirmed Type metformin 500 mg tablet 500 mg PO BID 02/01/24 02/01/24 History Labs 02/02/24 05:35 02/02/24 05:35 Labs: Laboratory WBC 14.2 X10^3/uL (3.6-10.0) H 02/02/24 05:35 RBC 4.65 X10^6/uL (4.7-6.0) L 02/02/24 05:35 Hgb 13.3 g/dL (13.5-18.0) L 02/02/24 05:35 Hct 40.5 % (42.0-54.0) L 02/02/24 05:35 MCV 87.0 fL (80.0-100.0) 02/02/24 05:35 MCH 28.7 pg (27.0-34.0) 02/02/24 05:35 MCHC 33.0 g/dL (33.0-35.0) 02/02/24 05:35 RDW 14.0 % (11.6-16.5) 02/02/24 05:35 Plt Count 298 X10^3/uL (150.0-450.0) 02/02/24 05:35 MPV 8.6 fL (7.4-11.0) 02/02/24 05:35 Neut % (Auto) 83.8 % (42.0-75.0) H 02/02/24 05:35 Lymph % (Auto) 8.4 % (21.0-51.0) L 02/02/24 05:35 [place] % (Auto) 6.8 % (0.0-13.0) 02/02/24 05:35 Eos % (Auto) 0.3 % (0.9-2.9) L 02/02/24 05:35 Baso % (Auto) 0.7 % (0.2-1.0) 02/02/24 05:35 Neut # (Auto) 11.9 x10^3/uL (2.2-4.8) H 02/02/24 05:35 Lymph # (Auto) 1.2 X10^3/uL (1.3-2.9) L 02/02/24 05:35 [place] # (Auto) 1.0 x10^3/uL (0.3-0.8) H 02/02/24 05:35 Eos # (Auto) 0.0 x10^3/uL (0.0-0.2) 02/02/24 05:35 Baso # (Auto) 0.1 X10^3/uL (0.0-0.1) 02/02/24 05:35 Absolute Nucleated RBC 0.0 /100WBC 02/02/24 05:35 Sodium 139 mmol/L (136-145) 02/02/24 05:35 Corrected Sodium 141 mmol/L (136-145) 02/02/24 05:35 Potassium 3.8 mmol/L (3.5-5.1) 02/02/24 05:35 Chloride 105 mmol/L (98-107) 02/02/24 05:35 Carbon Dioxide 26.4 mmol/L (21-32) 02/02/24 05:35 BUN 13 mg/dL (7-18) 02/02/24 05:35 Creatinine 0.86 mg/dL (0.70-1.30) 02/02/24 05:35 Est GFR (MDRD) Af Amer > 60 (>60) 02/02/24 05:35 Est GFR (MDRD) Non-Af > 60 (>60) 02/02/24 05:35 Glucose 200 mg/dL (65-99) H 02/02/24 05:35 POC Glucose (mg/dL) 222 mg/dL (65-99) H 02/02/24 05:31 Lactic Acid 1.6 mmol/L (0.4-2.0) 02/01/24 11:46 Calcium 7.7 mg/dL (8.5-10.1) L 02/02/24 05:35 Corrected Calcium 9.2 mg/dL (8.5-10.1) 02/02/24 05:35 Magnesium 1.9 mg/dL (2.0-2.9) L 02/02/24 05:35 Total Bilirubin 0.80 mg/dL (0.2-1.0) 02/02/24 05:35 AST 17 Units/L (15-37) 02/02/24 05:35 ALT 50 Units/L (12-78) 02/02/24 05:35 Alkaline Phosphatase 96 Units/L (46-116) 02/02/24 05:35 Total Protein 5.9 g/dL (6.4-8.2) L 02/02/24 05:35 Albumin 2.1 g/dL (3.4-5.0) L 02/02/24 05:35 Globulin 3.8 g/dL (2.5-4.5) 02/02/24 05:35 Albumin/Globulin Ratio 0.6 Ratio (1.1-2.1) L 02/02/24 05:35 SARS-CoV-2 (PCR) Negative (NEGATIVE) 02/01/24 09:41 Influenza Type A (PCR) Negative (NEGATIVE) 02/01/24 09:41 Influenza Type B (PCR) Negative (NEGATIVE) 02/01/24 09:41 RSV (PCR) Negative (NEGATIVE) 02/01/24 09:41 Resp Viral Panel (PCR) See scanned report 02/01/24 13:17 Review of Systems Constitutional: Fever, Chills, Sweats, Weakness and Malaise Eyes: No Symptoms Reported ENT: No Symptoms Reported Respiratory: Cough, Shortness of Breath, Pleuritic Pain, Sputum and Wheezing Cardiovascular: No Symptoms Reported Gastrointestinal: Nausea; denies Vomiting, Abdominal Pain, Diarrhea, Constipation, Melena or Hematochezia Genitourinary: denies Dysuria, Frequency, Incontinence, Hematuria or Retention Musculoskeletal: No Symptoms Reported Skin: No Symptoms Reported Neurological: No Symptoms Reported Physical Exam Vital Signs: Vital Signs Temperature 99.0 F Temperature 100.2 F Pulse Rate [Bilateral Radial] 125 Pulse Rate 116 Respiratory Rate 18 Respiratory Rate 18 Respiratory Rate 20 Blood Pressure [Left Arm] 169/90 O2 Sat by Pulse Oximetry 94 O2 Sat by Pulse Oximetry 94 Oriented: Normal, Time, Person and Place Eyes: Normal Ear: Normal Nose: Normal Throat: Normal Respiratory: Diminished Throughout and Rhonchi Throughout Cardiovascular: Normal : Normal Auscultation: Bowel Sounds: Normal Palpation: Normal Tenderness: Normal Skin: Normal Musculoskeletal: Normal Psychiatric: Normal Mood Description: Calm Affect: Normal Speech Pattern: Clear and Appropriate Assessment/Plan (1) Pneumonia: Status: Acute Plan: IV Rocephin and Levaquin. Plan on rechecking labs again tomorrow. (2) Diabetes mellitus type 2 in nonobese: Status: Acute Plan: Sliding scale regular insulin per protocol.
[2024-02-02] MEDS: TORADOL 15 MG VIAL IVP PRN (12:44)
--- NOTE | 2024-02-02 16:22 | PCM.PROG ---
Progress Note Progress Note for Day of Date of Exam: 02/02/24 Subjective Subjective: The patient is resting this morning but states his breathing is a little better since yesterday. We are still treating his bilateral pneumonia with IV Rocephin and Levaquin and will continue to do so. His white count remains elevated at 14,200 today and his sugar is elevated at 200 this morning. He is on slight scale regular insulin for his diabetes and we will plan on rechecking a chest x-ray tomorrow morning. Past Medical Family Social History Allergies: Allergies lisinopril Allergy (Verified 12/29/23 04:51) Review of Systems ROS: No change since H&P Vital Signs and I&O's Vital Signs: Vital Signs Temperature 97.6 F Pulse Rate [Bilateral Radial] 115 Respiratory Rate 18 Respiratory Rate 18 Respiratory Rate 22 Blood Pressure [Left Arm] 146/99 O2 Sat by Pulse Oximetry 96 Intake and Output: Intake & Output 01/31/24 02/01/24 02/02/24 02/03/24 11:59 11:59 11:59 11:59 Intake Total 360 / 360 1806 / 1806 Balance 360 / 360 1806 / 1806 Physical Exam Oriented: Normal, Time, Person and Place Eyes: Normal Ear: Normal Nose: Normal Throat: Normal Respiratory: Generalized, Diminished and Rhonchi Cardiovascular: Normal : Normal Auscultation: Bowel Sounds: Normal Tenderness: Normal Skin: Normal Musculoskeletal: Normal Psychiatric: Normal Mood Description: Calm Affect: Normal Speech Pattern: Clear and Appropriate Laboratory and Diagnostics 02/02/24 05:35 02/02/24 05:35 Labs: 02/02/24 02:20 Sputum - Expectorated Sputum - Final Laboratory WBC 14.2 X10^3/uL (3.6-10.0) H 02/02/24 05:35 RBC 4.65 X10^6/uL (4.7-6.0) L 02/02/24 05:35 Hgb 13.3 g/dL (13.5-18.0) L 02/02/24 05:35 Hct 40.5 % (42.0-54.0) L 02/02/24 05:35 MCV 87.0 fL (80.0-100.0) 02/02/24 05:35 MCH 28.7 pg (27.0-34.0) 02/02/24 05:35 MCHC 33.0 g/dL (33.0-35.0) 02/02/24 05:35 RDW 14.0 % (11.6-16.5) 02/02/24 05:35 Plt Count 298 X10^3/uL (150.0-450.0) 02/02/24 05:35 MPV 8.6 fL (7.4-11.0) 02/02/24 05:35 Neut % (Auto) 83.8 % (42.0-75.0) H 02/02/24 05:35 Lymph % (Auto) 8.4 % (21.0-51.0) L 02/02/24 05:35 [place] % (Auto) 6.8 % (0.0-13.0) 02/02/24 05:35 Eos % (Auto) 0.3 % (0.9-2.9) L 02/02/24 05:35 Baso % (Auto) 0.7 % (0.2-1.0) 02/02/24 05:35 Neut # (Auto) 11.9 x10^3/uL (2.2-4.8) H 02/02/24 05:35 Lymph # (Auto) 1.2 X10^3/uL (1.3-2.9) L 02/02/24 05:35 [place] # (Auto) 1.0 x10^3/uL (0.3-0.8) H 02/02/24 05:35 Eos # (Auto) 0.0 x10^3/uL (0.0-0.2) 02/02/24 05:35 Baso # (Auto) 0.1 X10^3/uL (0.0-0.1) 02/02/24 05:35 Absolute Nucleated RBC 0.0 /100WBC 02/02/24 05:35 Sodium 139 mmol/L (136-145) 02/02/24 05:35 Corrected Sodium 141 mmol/L (136-145) 02/02/24 05:35 Potassium 3.8 mmol/L (3.5-5.1) 02/02/24 05:35 Chloride 105 mmol/L (98-107) 02/02/24 05:35 Carbon Dioxide 26.4 mmol/L (21-32) 02/02/24 05:35 BUN 13 mg/dL (7-18) 02/02/24 05:35 Creatinine 0.86 mg/dL (0.70-1.30) 02/02/24 05:35 Est GFR (MDRD) Af Amer > 60 (>60) 02/02/24 05:35 Est GFR (MDRD) Non-Af > 60 (>60) 02/02/24 05:35 Glucose 200 mg/dL (65-99) H 02/02/24 05:35 POC Glucose (mg/dL) 141 mg/dL (65-99) H 02/02/24 15:38 Lactic Acid 1.6 mmol/L (0.4-2.0) 02/01/24 11:46 Calcium 7.7 mg/dL (8.5-10.1) L 02/02/24 05:35 Corrected Calcium 9.2 mg/dL (8.5-10.1) 02/02/24 05:35 Magnesium 1.9 mg/dL (2.0-2.9) L 02/02/24 05:35 Total Bilirubin 0.80 mg/dL (0.2-1.0) 02/02/24 05:35 AST 17 Units/L (15-37) 02/02/24 05:35 ALT 50 Units/L (12-78) 02/02/24 05:35 Alkaline Phosphatase 96 Units/L (46-116) 02/02/24 05:35 Total Protein 5.9 g/dL (6.4-8.2) L 02/02/24 05:35 Albumin 2.1 g/dL (3.4-5.0) L 02/02/24 05:35 Globulin 3.8 g/dL (2.5-4.5) 02/02/24 05:35 Albumin/Globulin Ratio 0.6 Ratio (1.1-2.1) L 02/02/24 05:35 SARS-CoV-2 (PCR) Negative (NEGATIVE) 02/01/24 09:41 Influenza Type A (PCR) Negative (NEGATIVE) 02/01/24 09:41 Influenza Type B (PCR) Negative (NEGATIVE) 02/01/24 09:41 RSV (PCR) Negative (NEGATIVE) 02/01/24 09:41 Resp Viral Panel (PCR) See scanned report 02/01/24 13:17 Radiology Reviewed: Yes Plan (1) Pneumonia: Status: Acute Plan: IV Rocephin and Levaquin. Plan on rechecking labs again tomorrow. (2) Diabetes mellitus type 2 in nonobese: Status: Acute Plan: Sliding scale regular insulin per protocol.
[2024-02-02] MEDS: CATAPRES TAB 0.1 MG PO ONE (22:10)
--- NOTE | 2024-02-02 23:15 | EKG ---
Test Reason : Hypertension protocol requirement Blood Pressure : */* mmHG Vent. Rate : 115 BPM Atrial Rate : 115 BPM P-R Int : 132 ms QRS Dur : 82 ms QT Int : 320 ms P-R-T Axes : 62 56 74 degrees QTc Int : 442 ms Sinus tachycardia Left atrial enlargement Nonspecific T wave abnormality Abnormal ECG When compared with ECG of 27-JAN-2024 09:50, Nonspecific T wave abnormality now evident in Lateral leads Confirmed by Primo Curran MD ([id number]) on 02/03/2024 7:39:25 AM Referred By: Confirmed By: Primo Curran MD
[2024-02-03 06:12] LABS: ALANINE AMINOTRANSFERASE 38 Units/L (12-78); ALBUMIN 2.1 g/dL (3.4-5.0); ALKALINE PHOSPHATASE 97 Units/L (46-116); ASPARTATE AMINO TRANSFERASE 17 Units/L (15-37); BLOOD UREA NITROGEN 12 mg/dL (7-18); CALCIUM 7.7 mg/dL (8.5-10.1); CARBON DIOXIDE 22.5 mmol/L (21-32); CHLORIDE 106 mmol/L (98-107); COR CA(FOR HYPOALB) 9.2 mg/dL (8.5-10.1); COR NA(FOR HYPERGLY) 141 mmol/L (136-145); CREATININE 0.81 mg/dL (0.70-1.30); GLUCOSE 149 mg/dL (65-99); POTASSIUM 3.6 mmol/L (3.5-5.1); SODIUM 140 mmol/L (136-145); TOTAL PROTEIN 6.1 g/dL (6.4-8.2); eGFR NON BLACK RACES > 60 (>60)
[2024-02-03 06:24] LABS: BASOPHILS # (AUTO) 0.1 X10^3/uL (0.0-0.1); BASOPHILS % (AUTO) 0.9 % (0.2-1.0); EOSINOPHILS # (AUTO) 0.2 x10^3/uL (0.0-0.2); EOSINOPHILS % (AUTO) 1.7 % (0.9-2.9); HEMATOCRIT 39.7 % (42.0-54.0); HEMOGLOBIN 13.1 g/dL (13.5-18.0); LYMPHOCYTES # (AUTO) 2.1 X10^3/uL (1.3-2.9); LYMPHOCYTES % (AUTO) 17.3 % (21.0-51.0); MEAN CORPUSCULAR HEMOGLOBIN 28.5 pg (27.0-34.0); MEAN CORPUSCULAR VOLUME 86.5 fL (80.0-100.0); MEAN PLATELET VOLUME 8.3 fL (7.4-11.0); NEUTROPHILS # (AUTO) 8.6 x10^3/uL (2.2-4.8); NEUTROPHILS % (AUTO) 72.1 % (42.0-75.0); PLATELET COUNT 340 X10^3/uL (150.0-450.0); RED BLOOD COUNT 4.58 X10^6/uL (4.7-6.0); RED CELL DISTRIBUTION WIDTH 14.2 % (11.6-16.5); WHITE BLOOD COUNT 11.9 X10^3/uL (3.6-10.0)
[2024-02-03] MEDS ORDERED: CONSULT PHARMACY - POTASSIUM & MAGNESIUM XX SCH (07:00)
--- NOTE | 2024-02-03 07:53 | RAD ---
EXAM:Follow-up pneumoniaHISTORY:Chest AP portableCOMPARISON:02/01/2024, CTA chest 01/27/2024FINDINGS:Heart size is normal. Jenna are somewhat obscured by diffuse bilateral perihilar alveolar filling slightly more prominent on the left than the right and unchanged from the prior examination. Findings could be consistent with cardiogenic or non cardiogenic pulmonary edema, bilateral pneumonia, ARDS, less likely pulmonary hemorrhage. No pleural effusions are identified. Bony thorax is unremarkable.IMPRESSION:Cardiomegaly with diffuse bilateral perihilar alveolar filling slightly more prominent on the left than the right and not significantly changed from the prior examination. Some differential diagnostic possibilities given aboveTHIS IS AN ELECTRONICALLY VERIFIED FINAL REPORT02/03/2024 7:40 AM - Electronically signed by Constantino Aguilar MD
[2024-02-03] MEDS: K-DUR TAB 20 MEQ PO NR (09:01)
--- NOTE | 2024-02-03 13:37 | RAD ---
EXAM:Right shoulder three viewsHISTORY:Right shoulder painCOMPARISON:NoneFINDINGS:Clavicle, scapula, proximal humerus, glenohumeral joint, and right upper ribs are intact. There is elevation of the distal clavicle at the AC joint consistent with an acromioclavicular separation.IMPRESSION:Acromioclavicular separationTHIS IS AN ELECTRONICALLY VERIFIED FINAL REPORT02/03/2024 1:33 PM - Electronically signed by Constantino Aguilar MD
--- NOTE | 2024-02-03 13:55 | PCM.PROG ---
Progress Note Progress Note for Day of Date of Exam: 02/03/24 Subjective Subjective: The patient is alert and awake this morning. The nurse called and told me that the doctor saw him this morning he was up trying to go to the bathroom and tripped over his cords and fell on his right shoulder. He states that it was hurting him some but he does have chronic right shoulder pain prior to that. He states it was hurting only a little bit more than usual. I will have the nurse do an x-ray of the today. He states his breathing is doing better and the patient seems more alert today. His chest x-ray is unchanged from the one on admission so we will continue his IV antibiotics and follow-up with his urine cultures when available. His white blood cell count has gone down and is now 11,900. His sugar levels are running okay at this time. Past Medical Family Social History Allergies: Allergies lisinopril Allergy (Verified 12/29/23 04:51) Review of Systems ROS: No change since H&P Vital Signs and I&O's Vital Signs: Vital Signs Temperature 99.1 F Temperature 98.0 F Pulse Rate [Bilateral Radial] 118 Pulse Rate [Bilateral Radial] 117 Pulse Rate 102 Respiratory Rate 20 Respiratory Rate 20 Blood Pressure [Left Arm] 144/90 Blood Pressure [Left Arm] 158/94 O2 Sat by Pulse Oximetry 95 O2 Sat by Pulse Oximetry 98 O2 Sat by Pulse Oximetry 94 Intake and Output: Intake & Output 02/01/24 02/02/24 02/03/24 02/04/24 11:59 11:59 11:59 11:59 Intake Total 360 / 360 1806 / 1806 2826 / 2826 Balance 360 / 360 1806 / 1806 2826 / 2826 Physical Exam Oriented: Normal, Time, Person and Place Eyes: Normal Ear: Normal Nose: Normal Throat: Normal Respiratory: Generalized, Diminished and Rhonchi Cardiovascular: Normal : Normal Auscultation: Bowel Sounds: Normal Tenderness: Normal Skin: Normal Musculoskeletal: Normal Psychiatric: Normal Mood Description: Calm Affect: Normal Speech Pattern: Clear and Appropriate Laboratory and Diagnostics 02/03/24 05:20 02/03/24 05:20 Labs: 02/01/24 09:53 Blood Blood Culture - Preliminary 02/01/24 09:47 Blood Blood Culture - Preliminary 02/02/24 02:20 Sputum - Expectorated Sputum Sputum Culture - Preliminary 02/02/24 02:20 Sputum - Expectorated Sputum - Final Laboratory WBC 11.9 X10^3/uL (3.6-10.0) H 02/03/24 05:20 RBC 4.58 X10^6/uL (4.7-6.0) L 02/03/24 05:20 Hgb 13.1 g/dL (13.5-18.0) L 02/03/24 05:20 Hct 39.7 % (42.0-54.0) L 02/03/24 05:20 MCV 86.5 fL (80.0-100.0) 02/03/24 05:20 MCH 28.5 pg (27.0-34.0) 02/03/24 05:20 MCHC 33.0 g/dL (33.0-35.0) 02/03/24 05:20 RDW 14.2 % (11.6-16.5) 02/03/24 05:20 Plt Count 340 X10^3/uL (150.0-450.0) 02/03/24 05:20 MPV 8.3 fL (7.4-11.0) 02/03/24 05:20 Neut % (Auto) 72.1 % (42.0-75.0) 02/03/24 05:20 Lymph % (Auto) 17.3 % (21.0-51.0) L 02/03/24 05:20 [place] % (Auto) 8.0 % (0.0-13.0) 02/03/24 05:20 Eos % (Auto) 1.7 % (0.9-2.9) 02/03/24 05:20 Baso % (Auto) 0.9 % (0.2-1.0) 02/03/24 05:20 Neut # (Auto) 8.6 x10^3/uL (2.2-4.8) H 02/03/24 05:20 Lymph # (Auto) 2.1 X10^3/uL (1.3-2.9) 02/03/24 05:20 [place] # (Auto) 1.0 x10^3/uL (0.3-0.8) H 02/03/24 05:20 Eos # (Auto) 0.2 x10^3/uL (0.0-0.2) 02/03/24 05:20 Baso # (Auto) 0.1 X10^3/uL (0.0-0.1) 02/03/24 05:20 Absolute Nucleated RBC 0.3 /100WBC 02/03/24 05:20 Sodium 140 mmol/L (136-145) 02/03/24 05:20 Corrected Sodium 141 mmol/L (136-145) 02/03/24 05:20 Potassium 3.6 mmol/L (3.5-5.1) 02/03/24 05:20 Chloride 106 mmol/L (98-107) 02/03/24 05:20 Carbon Dioxide 22.5 mmol/L (21-32) 02/03/24 05:20 BUN 12 mg/dL (7-18) 02/03/24 05:20 Creatinine 0.81 mg/dL (0.70-1.30) 02/03/24 05:20 Est GFR (MDRD) Af Amer > 60 (>60) 02/03/24 05:20 Est GFR (MDRD) Non-Af > 60 (>60) 02/03/24 05:20 Glucose 149 mg/dL (65-99) H 02/03/24 05:20 POC Glucose (mg/dL) 164 mg/dL (65-99) H 02/03/24 10:56 Lactic Acid 1.6 mmol/L (0.4-2.0) 02/01/24 11:46 Calcium 7.7 mg/dL (8.5-10.1) L 02/03/24 05:20 Corrected Calcium 9.2 mg/dL (8.5-10.1) 02/03/24 05:20 Magnesium 2.0 mg/dL (2.0-2.9) 02/03/24 05:20 Total Bilirubin 0.60 mg/dL (0.2-1.0) 02/03/24 05:20 AST 17 Units/L (15-37) 02/03/24 05:20 ALT 38 Units/L (12-78) 02/03/24 05:20 Alkaline Phosphatase 97 Units/L (46-116) 02/03/24 05:20 Total Protein 6.1 g/dL (6.4-8.2) L 02/03/24 05:20 Albumin 2.1 g/dL (3.4-5.0) L 02/03/24 05:20 Globulin 4.0 g/dL (2.5-4.5) 02/03/24 05:20 Albumin/Globulin Ratio 0.5 Ratio (1.1-2.1) L 02/03/24 05:20 SARS-CoV-2 (PCR) Negative (NEGATIVE) 02/01/24 09:41 Influenza Type A (PCR) Negative (NEGATIVE) 02/01/24 09:41 Influenza Type B (PCR) Negative (NEGATIVE) 02/01/24 09:41 RSV (PCR) Negative (NEGATIVE) 02/01/24 09:41 Resp Viral Panel (PCR) See scanned report 02/01/24 13:17 Plan (1) Pneumonia: Status: Acute Plan: IV Rocephin and Levaquin. Plan on rechecking labs again tomorrow. (2) Diabetes mellitus type 2 in nonobese: Status: Acute Plan: Sliding scale regular insulin per protocol. (3) Fall: Status: Acute Plan: Patient tripped over the oxygen cord going to the bathroom this morning. (4) Right shoulder pain: Status: Acute Plan: Check right shoulder x-ray
[2024-02-03] MEDS: DIFLUCAN 200 MG IV PREMIX* 200 MG/100 ML BAG IV SCH (14:43)
[2024-02-04] MEDS ORDERED: CATAPRES TAB 0.1 MG PO ONE
[2024-02-04 04:56] VITALS: RESP 18
[2024-02-04 05:05] VITALS: BP 153/91; PULSE 112; TEMP 98.4; O2SAT 92
[2024-02-04 06:20] LABS: ALANINE AMINOTRANSFERASE 39 Units/L (12-78); ALBUMIN 2.3 g/dL (3.4-5.0); ALKALINE PHOSPHATASE 109 Units/L (46-116); ASPARTATE AMINO TRANSFERASE 23 Units/L (15-37); BASOPHILS # (AUTO) 0.1 X10^3/uL (0.0-0.1); BASOPHILS % (AUTO) 0.8 % (0.2-1.0); BLOOD UREA NITROGEN 13 mg/dL (7-18); CALCIUM 8.3 mg/dL (8.5-10.1); CARBON DIOXIDE 24.4 mmol/L (21-32); CHLORIDE 104 mmol/L (98-107); COR CA(FOR HYPOALB) 9.7 mg/dL (8.5-10.1); COR NA(FOR HYPERGLY) 142 mmol/L (136-145); CREATININE 0.83 mg/dL (0.70-1.30); EOSINOPHILS # (AUTO) 0.2 x10^3/uL (0.0-0.2); GLUCOSE 119 mg/dL (65-99); HEMATOCRIT 41.8 % (42.0-54.0); HEMOGLOBIN 13.6 g/dL (13.5-18.0); LYMPHOCYTES # (AUTO) 1.5 X10^3/uL (1.3-2.9); LYMPHOCYTES % (AUTO) 9.9 % (21.0-51.0); MEAN CORPUSCULAR HEMOGLOBIN 28.5 pg (27.0-34.0); MEAN CORPUSCULAR HGB CONC 32.6 g/dL (33.0-35.0); MEAN CORPUSCULAR VOLUME 87.6 fL (80.0-100.0); MEAN PLATELET VOLUME 8.2 fL (7.4-11.0); MONOCYTES # (AUTO) 1.3 x10^3/uL (0.3-0.8); NEUTROPHILS # (AUTO) 11.8 x10^3/uL (2.2-4.8); NEUTROPHILS % (AUTO) 79.3 % (42.0-75.0); PLATELET COUNT 332 X10^3/uL (150.0-450.0); POTASSIUM 4.1 mmol/L (3.5-5.1); RED BLOOD COUNT 4.77 X10^6/uL (4.7-6.0); RED CELL DISTRIBUTION WIDTH 14.1 % (11.6-16.5); SODIUM 142 mmol/L (136-145); TOTAL PROTEIN 6.7 g/dL (6.4-8.2); WHITE BLOOD COUNT 14.9 X10^3/uL (3.6-10.0); eGFR NON BLACK RACES > 60 (>60)
[2024-02-04] MEDS ORDERED: PULMICORT NEB TX 0.5 MG NEB ONE (08:52)
== END 2024-02-04 07:25 | disposition left against medical advice (07) | DRG 194 ==
LOC: ER 09:05 → MED/SURG 09:05 → UNDODISOB 02-04 07:25
PROVIDERS: ADMIT Family Medicine; ATTEND Family Medicine
DX: M25.511 Pain in right shoulder; Z59.41 Food insecurity; E11.65 Type 2 diabetes mellitus with hyperglycemia; J18.8 Other pneumonia, unspecified organism; R06.02 Shortness of breath; Z59.89 Other problems related to housing and economic circumstances; Z20.822 Contact with and (suspected) exposure to COVID-19; Y92.230 Patient room in hospital as the place of occurrence of the external cause; I10 Essential (primary) hypertension; W18.39XA Other fall on same level, initial encounter; Z72.0 Tobacco use; Z59.82 Transportation insecurity; Z59.00 Homelessness unspecified; R51.9 Headache, unspecified; R09.02 Hypoxemia; E78.5 Hyperlipidemia, unspecified; Z53.29 Procedure and treatment not carried out because of patient's decision for other reasons; R00.0 Tachycardia, unspecified; R94.31 Abnormal electrocardiogram [ECG] [EKG]; B37.89 Other sites of candidiasis; W01.0XXA Fall on same level from slipping, tripping and stumbling without subsequent striking against object, initial encounter

== ENCOUNTER 2024-03-23 17:25 | Inpatient (IN) ==
[2024-03-23 17:38] VITALS: BMI 30.3
--- NOTE | 2024-03-23 18:21 | DR.GENAD ---
HPI Time Seen Time Seen by Provider: 03/23/24 18:21 PCP Primary Care Physician: AMINA Complaint/Symptoms Chief Complaint Doctors Comments: 38-year-old male presents for evaluation. Patient was seen here last week, for cough, treated with azithromycin and Medrol Dosepak. Patient is finished the meds, now having swelling of bilateral ankles. Still has cough, off and on. Cough productive yellow sputum at times. States he is having nausea with frequent vomiting. No reported fever at this time. No problems with bowels or bladder. Chief Complaint:: Patient states that he was recently here last week with coughing and vomiting. Patient states he was placed on antibiotics and steriods at this time. Today he states his feet are swelling and hurting. Patient states he completed the antibiotics but not the steriods. COVID-19 Coronavirus risk:travel/contact w/high risk person: No Has patient experienced Coronavirus symptoms: No Nurses notes reviewed Nurses Notes Review: Yes Source History Provided: Patient Mode of Arrival Mode of Arrival: Ambulatory Timing Onset of Chief Complaint: 03/21/24 PMH PMH Past Medical History: Yes Past Medical History: Anxiety, Asthma, Depression, Diabetes, Dyslipidemia, Migraines, Hypertension, Kidney Stones and Schizophrenia Past Surgical History: No Surgical History: Ortho Surgery Family History History of Family Medical Conditions: Yes Family Medical History: Diabetes Mellitus, Heart Failure and Hypertension Social History Does patient currently use any type of tobacco product: Yes Do you use any recreational Drugs:: Yes Travel Risk Coronavirus risk:travel/contact w/high risk person: No Has patient experienced Coronavirus symptoms: No Infectious screening Have you traveled outside the country in the last 6 months?: No Isolation: Standard ROS Review of Systems Constitutional: No Symptoms Reported Eyes: No Symptoms Reported ENTM: No Symptoms Reported Respiratoy: Productive Cough Cardiovascular: Edema Gastrointestinal/Abdominal: Nausea and Vomiting Genitourinary: No Symptoms Reported Neurological: No Symptoms Reported Musculoskeletal: No Symptoms Reported Integumentary: No Symptoms Reported Hematologic/Lymphatic: No Symptoms Reported Psychiatric: No Symptoms Reported All Other Systems: Reviewed and Negative PE Vital Signs Vitals: Vital Signs Temperature 97.3 F Temperature 97.3 F Pulse Rate [Left Brachial] 130 Pulse Rate 128 Pulse Rate 130 Respiratory Rate 22 Respiratory Rate 22 Blood Pressure [Left Arm] 141/93 Blood Pressure 141/93 O2 Sat by Pulse Oximetry 89 O2 Sat by Pulse Oximetry 94 O2 Sat by Pulse Oximetry 94 General General Appearance: Alert, In No Apparent Distress and Other (Has a frequent dry cough) Eyes Eye exam: PERRL, EOMI and Periorbital Swelling ENT ENT Exam: Normal Oropharynx, Mucous Membranes Moist and TM's Normal Bilaterally Neck Neck Exam: Normal Inspection and Full ROM; negative Tenderness Respiratory Respiratory Exam: Other (+ rales R base, R anterior chest); negative Accessory Muscle Use or Respiratory Distress Cardiovascular Cardiovascular Exam: Regular Rate, Normal Rhythm and Normal Heart Sounds Abdominal Exam Abdominal Exam: Normal Bowel Sounds and Soft; negative Tenderness Extremities Extremities Exam: Edema (Bilateral lower extremities, 2+) Neurologic Neurological Exam: Alert, Oriented X3 and CN II-XII Intact; negative Motor Sensory Deficit Skin Skin Exam: Warm and Dry COURSE Treatment Treatment: 38-year-old male with persistent cough after being treated for bronchitis last week (finished azithromycin), also now with swelling of his ankles after being on few days of steroids. Workup initiated. 1727 - Chest x- ray with marked increase opacifications of the right > left side, primarily right middle lobe, consistent with pneumonia. Patient with frequent dry cough. Given DuoNeb treatment here, with IV Rocephin. 1939 -troponin elevated 169.1, BNP elevated at 400, glucose up at 279 (is a diabetic). 2004 -discussed with Dr. Romano, on-call. Accepts the admission here. Will place patient on oxygen, treat with IV Rocephin/Levaquin, DuoNebs, steroids. Will treat with sliding scale insulin. ROR Labs Reviewed Laboratory Results Reviewed?: Yes 03/24/24 03:25 03/24/24 03:25 Laboratory: WBC 10.7 X10^3/uL (3.6-10.0) H 03/23/24 18:40 RBC 4.93 X10^6/uL (4.7-6.0) 03/23/24 18:40 Hgb 13.3 g/dL (13.5-18.0) L 03/23/24 18:40 Hct 41.7 % (42.0-54.0) L 03/23/24 18:40 MCV 84.6 fL (80.0-100.0) 03/23/24 18:40 MCH 27.1 pg (27.0-34.0) 03/23/24 18:40 MCHC 32.0 g/dL (33.0-35.0) L 03/23/24 18:40 RDW 14.7 % (11.6-16.5) 03/23/24 18:40 Plt Count 542 X10^3/uL (150.0-450.0) H 03/23/24 18:40 MPV 7.4 fL (7.4-11.0) 03/23/24 18:40 Neut % (Auto) 71.1 % (42.0-75.0) 03/23/24 18:40 Lymph % (Auto) 19.4 % (21.0-51.0) L 03/23/24 18:40 [place] % (Auto) 6.3 % (0.0-13.0) 03/23/24 18:40 Eos % (Auto) 2.2 % (0.9-2.9) 03/23/24 18:40 Baso % (Auto) 1.0 % (0.2-1.0) 03/23/24 18:40 Neut # (Auto) 7.6 x10^3/uL (2.2-4.8) H 03/23/24 18:40 Lymph # (Auto) 2.1 X10^3/uL (1.3-2.9) 03/23/24 18:40 [place] # (Auto) 0.7 x10^3/uL (0.3-0.8) 03/23/24 18:40 Eos # (Auto) 0.2 x10^3/uL (0.0-0.2) 03/23/24 18:40 Baso # (Auto) 0.1 X10^3/uL (0.0-0.1) 03/23/24 18:40 Absolute Nucleated RBC 0.2 /100WBC 03/23/24 18:40 Sodium 137 mmol/L (136-145) 03/23/24 18:40 Corrected Sodium 141 mmol/L (136-145) 03/23/24 18:40 Potassium 3.8 mmol/L (3.5-5.1) 03/23/24 18:40 Chloride 102 mmol/L (98-107) 03/23/24 18:40 Carbon Dioxide 28.7 mmol/L (21-32) 03/23/24 18:40 BUN 12 mg/dL (7-18) 03/23/24 18:40 Creatinine 1.36 mg/dL (0.70-1.30) H 03/23/24 18:40 Est GFR (MDRD) Af Amer > 60 (>60) 03/23/24 18:40 Est GFR (MDRD) Non-Af > 60 (>60) 03/23/24 18:40 Glucose 279 mg/dL (65-99) H 03/23/24 18:40 Lactic Acid 3.3 mmol/L (0.4-2.0) H 03/23/24 19:40 Calcium 8.1 mg/dL (8.5-10.1) L 03/23/24 18:40 Corrected Calcium 9.7 mg/dL (8.5-10.1) 03/23/24 18:40 Total Bilirubin 0.30 mg/dL (0.2-1.0) 03/23/24 18:40 AST 32 Units/L (15-37) 03/23/24 18:40 ALT 64 Units/L (12-78) 03/23/24 18:40 Alkaline Phosphatase 127 Units/L (46-116) H 03/23/24 18:40 Troponin I High Sens 169.1 ng/L (4.0-60.0) H* 03/23/24 18:40 B-Natriuretic Peptide 400 pg/mL (0-79) H 03/23/24 18:40 Total Protein 5.8 g/dL (6.4-8.2) L 03/23/24 18:40 Albumin 2.0 g/dL (3.4-5.0) L 03/23/24 18:40 Globulin 3.8 g/dL (2.5-4.5) 03/23/24 18:40 Albumin/Globulin Ratio 0.5 Ratio (1.1-2.1) L 03/23/24 18:40 Lipase 78 Units/L (16-77) H 03/23/24 18:40 Elevated troponin, elevated BNP XRAY XRAY Interpreted by: Both X-ray Results: EXAM: CHEST, PA/LAT ADULT HISTORY: cough; COMPARISON: None available TECHNIQUE: PA and lateral projections, 2 images FINDINGS: Cardiac silhouette is normal in size and configuration. Pulmonary vascular sizes are normal. No effusion. Bilateral perihilar airspace opacities; right significantly greater than left. No pneumothorax. No acute osseous abnormality IMPRESSION: Bilateral perihilar airspace opacities; right significantly greater than left. Findings could represent an atypical/viral infectious process or multifocal pneumonia. THIS IS AN ELECTRONICALLY VERIFIED FINAL REPORT 03/23/2024 7:42 PM - Electronically signed by Jerald Baxter MD EKG Rate: 130 (after breathing treatment) [place]: Normal Rhythm: ST Hypertrophy: LAE ST: Nonsp Opioid Opioid Risk Tool Age (Josias box if 16-45): No History of Preadolescent Sexual Abuse: No Total: 0 Total Score Risk Category: Low Risk Copyright: Martinez MARTINEZ predicting aberrant behaviors Discharge Plan Diagnosis Discharge Problem: Bilateral pneumonia, Elevated troponin Discharge Plan Patient Disposition: ADMITTED INPATIENT Condition: Stable Discharge Comment: Amitted to 208
[2024-03-23 18:55] LABS: BASOPHILS # (AUTO) 0.1 X10^3/uL (0.0-0.1); EOSINOPHILS # (AUTO) 0.2 x10^3/uL (0.0-0.2); EOSINOPHILS % (AUTO) 2.2 % (0.9-2.9); HEMATOCRIT 41.7 % (42.0-54.0); HEMOGLOBIN 13.3 g/dL (13.5-18.0); LYMPHOCYTES # (AUTO) 2.1 X10^3/uL (1.3-2.9); LYMPHOCYTES % (AUTO) 19.4 % (21.0-51.0); MEAN CORPUSCULAR HEMOGLOBIN 27.1 pg (27.0-34.0); MEAN CORPUSCULAR VOLUME 84.6 fL (80.0-100.0); MEAN PLATELET VOLUME 7.4 fL (7.4-11.0); MONOCYTES # (AUTO) 0.7 x10^3/uL (0.3-0.8); MONOCYTES % (AUTO) 6.3 % (0.0-13.0); NEUTROPHILS # (AUTO) 7.6 x10^3/uL (2.2-4.8); NEUTROPHILS % (AUTO) 71.1 % (42.0-75.0); PLATELET COUNT 542 X10^3/uL (150.0-450.0); RED BLOOD COUNT 4.93 X10^6/uL (4.7-6.0); RED CELL DISTRIBUTION WIDTH 14.7 % (11.6-16.5); WHITE BLOOD COUNT 10.7 X10^3/uL (3.6-10.0)
[2024-03-23 19:23] LABS: ALANINE AMINOTRANSFERASE 64 Units/L (12-78); ALKALINE PHOSPHATASE 127 Units/L (46-116); ASPARTATE AMINO TRANSFERASE 32 Units/L (15-37); BLOOD UREA NITROGEN 12 mg/dL (7-18); CALCIUM 8.1 mg/dL (8.5-10.1); CARBON DIOXIDE 28.7 mmol/L (21-32); CHLORIDE 102 mmol/L (98-107); COR CA(FOR HYPOALB) 9.7 mg/dL (8.5-10.1); COR NA(FOR HYPERGLY) 141 mmol/L (136-145); CREATININE 1.36 mg/dL (0.70-1.30); GLUCOSE 279 mg/dL (65-99); LIPASE 78 Units/L (16-77); POTASSIUM 3.8 mmol/L (3.5-5.1); SODIUM 137 mmol/L (136-145); TOTAL PROTEIN 5.8 g/dL (6.4-8.2); eGFR NON BLACK RACES > 60 (>60)
[2024-03-23] MEDS: DUONEB 0.5 MG/3 MG (3 mL) NEB ONE (19:31)
[2024-03-23] MEDS: ROCEPHIN VIAL 1 GRAM IVP ONE (19:32)
--- NOTE | 2024-03-23 19:45 | RAD ---
EXAM:CHEST, PA/LAT ADULTHISTORY:cough;COMPARISON:None availableTECHNIQUE:PA and lateral projections, 2 imagesFINDINGS:Cardiac silhouette is normal in size and configuration.Pulmonary vascular sizes are normal.No effusion.Bilateral perihilar airspace opacities; right significantly greater than left.No pneumothorax.No acute osseous abnormalityIMPRESSION:Bilateral perihilar airspace opacities; right significantly greater than left. Findings could represent an atypical/viral infectious process or multifocal pneumonia.THIS IS AN ELECTRONICALLY VERIFIED FINAL REPORT03/23/2024 7:42 PM - Electronically signed by Jerald Baxter MD
--- NOTE | 2024-03-23 19:56 | EKG ---
Test Reason : elevated troponin Blood Pressure : */* mmHG Vent. Rate : 130 BPM Atrial Rate : 130 BPM P-R Int : 118 ms QRS Dur : 76 ms QT Int : 328 ms P-R-T Axes : 57 57 65 degrees QTc Int : 482 ms Sinus tachycardia Possible Left atrial enlargement Nonspecific T wave abnormality Abnormal ECG When compared with ECG of 02-FEB-2024 23:02, No significant change was found Confirmed by Primo Curran MD ([id number]) on 03/24/2024 7:06:43 AM Referred By: Confirmed By: Primo Curran MD
[2024-03-23] MEDS: LASIX IVP ONE (19:57)
[2024-03-23] MEDS: NORCO 7.5/325 MG TAB PO ONE (20:14)
[2024-03-23] MEDS: TESSALON PERLES PO ONE (20:15)
[2024-03-23] MEDS ORDERED: TESSALON PERLES PO PRN (21:24)
[2024-03-23] MEDS: NovoLIN R (or HumuLIN R) SC PRN (22:26)
[2024-03-23] MEDS: LEVAQUIN PREMIX IV 750 MG 750 MG/150 ML BAG IV SCH (22:26)
[2024-03-23] MEDS: SOLU-Medrol 125 MG VIAL IVP ONE (22:27)
[2024-03-23] MEDS: K-DUR TAB 20 MEQ PO ONE (22:27)
[2024-03-23] MEDS: DUONEB 0.5 MG/3 MG (3 mL) NEB SCH (23:56)
[2024-03-24] MEDS: ROBITUSSIN DM PO PRN (00:26)
[2024-03-24] MEDS: NORCO 5/325 MG TAB PO PRN (00:27)
[2024-03-24 03:47] LABS: BASOPHILS % (AUTO) 0.3 % (0.2-1.0); EOSINOPHILS # (AUTO) 0.1 x10^3/uL (0.0-0.2); EOSINOPHILS % (AUTO) 0.5 % (0.9-2.9); HEMATOCRIT 45.9 % (42.0-54.0); HEMOGLOBIN 14.7 g/dL (13.5-18.0); LYMPHOCYTES # (AUTO) 0.5 X10^3/uL (1.3-2.9); LYMPHOCYTES % (AUTO) 4.7 % (21.0-51.0); MEAN CORPUSCULAR HEMOGLOBIN 26.9 pg (27.0-34.0); MEAN CORPUSCULAR VOLUME 84.1 fL (80.0-100.0); MEAN PLATELET VOLUME 7.9 fL (7.4-11.0); MONOCYTES # (AUTO) 0.1 x10^3/uL (0.3-0.8); NEUTROPHILS # (AUTO) 10.7 x10^3/uL (2.2-4.8); NEUTROPHILS % (AUTO) 93.5 % (42.0-75.0); PLATELET COUNT 640 X10^3/uL (150.0-450.0); RED BLOOD COUNT 5.45 X10^6/uL (4.7-6.0); WHITE BLOOD COUNT 11.5 X10^3/uL (3.6-10.0)
[2024-03-24 04:04] LABS: ALANINE AMINOTRANSFERASE 71 Units/L (12-78); ALBUMIN 2.2 g/dL (3.4-5.0); ALKALINE PHOSPHATASE 137 Units/L (46-116); ASPARTATE AMINO TRANSFERASE 33 Units/L (15-37); BLOOD UREA NITROGEN 15 mg/dL (7-18); CALCIUM 8.6 mg/dL (8.5-10.1); CHLORIDE 100 mmol/L (98-107); COR NA(FOR HYPERGLY) 140 mmol/L (136-145); CREATININE 1.17 mg/dL (0.70-1.30); GLUCOSE 349 mg/dL (65-99); MAGNESIUM 1.7 mg/dL (2.0-2.9); POTASSIUM 4.7 mmol/L (3.5-5.1); SODIUM 134 mmol/L (136-145); TOTAL PROTEIN 6.9 g/dL (6.4-8.2); eGFR NON BLACK RACES > 60 (>60)
[2024-03-24 04:17] LABS: PLATELET MORPHOLOGY COMMENT NORMAL (NORMAL); STOMATOCYTES SLIGHT; TARGET CELLS SLIGHT
--- NOTE | 2024-03-24 04:31 | RAD ---
PROCEDURE: Chest X-ray 1 View.HISTORY: PNEUMONIA ; .TECHNIQUE: AP portable view.COMPARISON: 03/23/2024.TECHNICAL QUALITY: Satisfactory.FINDINGS:Normal size heart.Mediastinum and hilar regions show no masses or lymphadenopathy.Normal central vascularity.Unchanged bilateral pneumonia mid and lower lung becker greatest on the right with no pleural fluid.No acute bony abnormality.IMPRESSION:Unchanged bilateral pneumonia.THIS IS AN ELECTRONICALLY VERIFIED FINAL REPORT03/24/2024 4:28 AM - Electronically signed by Maninder Tinoco MD
[2024-03-24] MEDS: SOLU-Medrol 40 MG VIAL IVP SCH (06:38)
[2024-03-24] MEDS: CONSULT PHARMACY - POTASSIUM & MAGNESIUM XX SCH (07:24)
[2024-03-24] MEDS: PULMICORT NEB TX 0.5 MG NEB SCH (08:52)
[2024-03-24] MEDS: ROCEPHIN VIAL 1 GRAM 1 G in NS 100 ML IV 100 ML IV SCH (08:59)
--- NOTE | 2024-03-24 09:29 | EKG ---
Test Reason : sob Blood Pressure : */* mmHG Vent. Rate : 123 BPM Atrial Rate : 123 BPM P-R Int : 122 ms QRS Dur : 74 ms QT Int : 354 ms P-R-T Axes : 64 36 85 degrees QTc Int : 506 ms Sinus tachycardia Biatrial enlargement Nonspecific T wave abnormality Abnormal ECG When compared with ECG of 23-MAR-2024 19:44, No significant change was found Confirmed by Primo Curran MD ([id number]) on 03/24/2024 1:22:55 PM Referred By: Confirmed By: Primo Curran MD
[2024-03-24] MEDS: ZITHROMAX INJ 500 MG VIAL 500 MG in D5W 250 ML IV 250 ML IV SCH (10:34)
[2024-03-24] MEDS: ROBITUSSIN DM PO SCH (10:38)
[2024-03-24] MEDS: GLUCOPHAGE PO SCH (10:39)
[2024-03-24] MEDS: NS 250 ML IV 250 ML IV ONE (10:47)
[2024-03-24] MEDS: GLUCOPHAGE ONE (10:49)
[2024-03-24] MEDS ORDERED: CHLORASEPTIC SPRAY MT PRN (10:55)
[2024-03-24] MEDS: CORTISPORIN OTIC SUSP EACH EAR SCH (11:46)
[2024-03-24] MEDS: NICOTINE PATCH TD SCH (11:47)
--- NOTE | 2024-03-24 13:09 | CT ---
EXAMINATION: CTA, CHEST HISTORY: hypoxic, r/o dvt; . COMPARISON: Chest x-ray 03/24/2024 TECHNIQUE: CT angiography of the pulmonary arteries was performed with maximum intensity projection images and v olume rendered images on a workstation Routine axial imaging of the chest was performed. The above CT scan was done with automated exposure control and the mA and kV was adjusted to obtain quality images according to patient size. FINDINGS: Lungs: Respiratory motion. Diffuse mixed alveolar and ground-glass opacities right greater than lef t. This may be seen with pulmonary edema or atypical pneumonia. Smooth septal thickening. Atelecta sis in the lung bases. Central Airways: No obstructing endobronchial lesions Pleura: Moderate right effusion. Small left effusion. No pneumothorax Thoracic Aorta: Tapers and enhances normally. Main Pulmonary Trunk: Normal diameter. No CT angiography evidence for acute pulmonary embolus. Jose dy degraded by respiratory motion. Lymph Nodes: No pathologic hilar, axillary or mediastinal adenopathy Heart/Pericardium: Normal heart size. No significant pericardial effusion Liver: Hepatomegaly. No acute findings. GB/Biliary: Contracted gallbladder. Spleen: Normal size and density Pancreas: No acute findings as visualized Adrenal Glands: No mass Kidneys no hydronephrosis. Abdominal Aorta: Tapers normally Retroperitoneum: No pathologically enlarged lymph nodes Bowel/Peritoneal Cavity: No acute findings as visualized Osseous Structures: Unremarkable with no acute findings Other: None IMPRESSION: No CT angiography evidence for acute pulmonary embolus or aortic dissection. Diffuse mixed alveolar/ground-glass opacities may represent atypical pneumonia or pulmonary edema. F ollow-up to resolution recommended. The above CT scan was done with automated exposure control and the mA and kV was adjusted to obtain q uality images according to patient size THIS IS AN ELECTRONICALLY VERIFIED FINAL REPORT 03/24/2024 1:05 PM - Electronically signed by Junior Howe MD
[2024-03-24] MEDS: OMNIPAQUE 350 mg/mL 100 mL BTL 100 ML ONE (15:14)
[2024-03-24] MEDS: NS 1,000 ML IV 1,000 ML IV SCH (16:05)
[2024-03-24] MEDS: CHLORASEPTIC SPRAY MT PRN (16:23)
[2024-03-24 17:06] LABS: ABG ALLEN TEST POS; ABG BASE EXCESS 3.7 mmol/L (-2.0-2.0); ABG HCO3 27.7 mmol/L (22-26)
[2024-03-24] MEDS: LASIX IVP ONE (17:26)
[2024-03-24] MEDS: MAG-OX TAB PO SCH (17:55)
[2024-03-24] MEDS ORDERED: CONSULT PHARMACY - POTASSIUM & MAGNESIUM XX SCH (18:00)
--- NOTE | 2024-03-24 18:06 | DR.H&P ---
H&P History & Physical for Day of: H&P Date: 03/23/24 Chief Complaint Chief Complaint: NV, CCC History of Present Illness History of Present Illness: 38-year-old male presents for evaluation. Patient was seen here last week, for cough, treated with azithromycin and Medrol Dosepak. Patient is finished the meds, now having swelling of bilateral ankles. Still has cough, off and on. Cough productive yellow sputum at times. States he is having nausea with frequent vomiting. No reported fever at this time. No problems with bowels or bladder. Past Medical History Past Medical History: Anxiety, Asthma, Depression, Diabetes, Dyslipidemia, Migraines, Hypertension, Kidney Stones and Schizophrenia Past Surgical History Surgical History: Ortho Surgery Family History Family Medical History: Diabetes Mellitus and Hypertension Social History Does patient currently use any type of tobacco product: Yes Have you used tobacco products in the last 12 months: Yes Type of Tobacco Use: Cigarettes Alcohol Use: Occasionally Allergies Allergies Allergy/AdvReac Type Severity Reaction Status Date / Time lisinopril Allergy Verified 03/17/24 15:46 Labs 03/24/24 03:25 03/24/24 11:47 Labs: Laboratory WBC 11.5 X10^3/uL (3.6-10.0) H 03/24/24 03:25 RBC 5.45 X10^6/uL (4.7-6.0) 03/24/24 03:25 Hgb 14.7 g/dL (13.5-18.0) 03/24/24 03:25 Hct 45.9 % (42.0-54.0) 03/24/24 03:25 MCV 84.1 fL (80.0-100.0) 03/24/24 03:25 MCH 26.9 pg (27.0-34.0) L 03/24/24 03:25 MCHC 32.0 g/dL (33.0-35.0) L 03/24/24 03:25 RDW 15.0 % (11.6-16.5) 03/24/24 03:25 Plt Count 640 X10^3/uL (150.0-450.0) H 03/24/24 03:25 Plt Count Comment Increased (ADEQUATE) 03/24/24 03:25 MPV 7.9 fL (7.4-11.0) 03/24/24 03:25 Neut % (Auto) 93.5 % (42.0-75.0) H 03/24/24 03:25 Lymph % (Auto) 4.7 % (21.0-51.0) L 03/24/24 03:25 [place] % (Auto) 1.0 % (0.0-13.0) 03/24/24 03:25 Eos % (Auto) 0.5 % (0.9-2.9) L 03/24/24 03:25 Baso % (Auto) 0.3 % (0.2-1.0) 03/24/24 03:25 Neut # (Auto) 10.7 x10^3/uL (2.2-4.8) H 03/24/24 03:25 Lymph # (Auto) 0.5 X10^3/uL (1.3-2.9) L 03/24/24 03:25 [place] # (Auto) 0.1 x10^3/uL (0.3-0.8) L 03/24/24 03:25 Eos # (Auto) 0.1 x10^3/uL (0.0-0.2) 03/24/24 03:25 Baso # (Auto) 0.0 X10^3/uL (0.0-0.1) 03/24/24 03:25 Absolute Nucleated RBC 0.1 /100WBC 03/24/24 03:25 Total Counted 100 03/24/24 03:25 Neutrophils % (Manual) 93 % (39-76) H 03/24/24 03:25 Lymphocytes % (Manual) 6 % (13-43) L 03/24/24 03:25 Monocytes % (Manual) 1 % (4-9) L 03/24/24 03:25 Plt Morphology Comment Normal (NORMAL) 03/24/24 03:25 RBC Morphology Abnormal (NORMAL) 03/24/24 03:25 Target Cells Slight A 03/24/24 03:25 Stomatocytes Slight A 03/24/24 03:25 Sample Site Rr 03/24/24 17:00 ABG pH 7.460 (7.35-7.45) H 03/24/24 17:00 ABG pCO2 39.0 mmHg (35.0-45.0) 03/24/24 17:00 ABG pO2 60.0 mmHg (80.0-100.0) L 03/24/24 17:00 ABG HCO3 27.7 mmol/L (22-26) H 03/24/24 17:00 ABG O2 Saturation 92.0 % (90-100) 03/24/24 17:00 ABG Base Excess 3.7 mmol/L (-2.0-2.0) H 03/24/24 17:00 Tristan Test Pos 03/24/24 17:00 A-a Gradient 41.0 mmHg 03/24/24 17:00 FiO2 21.0 03/24/24 17:00 Blood Gas Comments Pt talya well cdn 03/24/24 17:00 Sodium 134 mmol/L (136-145) L 03/24/24 03:25 Corrected Sodium 140 mmol/L (136-145) 03/24/24 03:25 Potassium 4.7 mmol/L (3.5-5.1) 03/24/24 03:25 Chloride 100 mmol/L (98-107) 03/24/24 03:25 Carbon Dioxide 29.0 mmol/L (21-32) 03/24/24 03:25 BUN 15 mg/dL (7-18) 03/24/24 03:25 Creatinine 1.17 mg/dL (0.70-1.30) 03/24/24 03:25 Est GFR (MDRD) Af Amer > 60 (>60) 03/24/24 03:25 Est GFR (MDRD) Non-Af > 60 (>60) 03/24/24 03:25 Glucose 469 mg/dL (65-99) H 03/24/24 11:47 POC Glucose (mg/dL) 286 mg/dL (65-99) H 03/24/24 16:07 Lactic Acid 4.3 mmol/L (0.4-2.0) H* 03/24/24 14:15 Calcium 8.6 mg/dL (8.5-10.1) 03/24/24 03:25 Corrected Calcium 10.0 mg/dL (8.5-10.1) 03/24/24 03:25 Magnesium 1.7 mg/dL (2.0-2.9) L 03/24/24 03:25 Total Bilirubin 0.30 mg/dL (0.2-1.0) 03/24/24 03:25 AST 33 Units/L (15-37) 03/24/24 03:25 ALT 71 Units/L (12-78) 03/24/24 03:25 Alkaline Phosphatase 137 Units/L (46-116) H 03/24/24 03:25 Creatine Kinase 597 Units/L (39-308) H 03/24/24 03:25 Troponin I High Sens 122.6 ng/L (4.0-60.0) H* 03/24/24 15:30 B-Natriuretic Peptide 400 pg/mL (0-79) H 03/23/24 18:40 Total Protein 6.9 g/dL (6.4-8.2) 03/24/24 03:25 Albumin 2.2 g/dL (3.4-5.0) L 03/24/24 03:25 Globulin 4.7 g/dL (2.5-4.5) H 03/24/24 03:25 Albumin/Globulin Ratio 0.5 Ratio (1.1-2.1) L 03/24/24 03:25 Lipase 78 Units/L (16-77) H 03/23/24 18:40 S. pyogenes (TEM-PCR) Not detected (NOT DETECT) 03/24/24 13:01 Review of Systems Constitutional: No Symptoms Reported, Chills and Weakness Eyes: No Symptoms Reported ENT: Nose Discharge and Nose Congestion Respiratory: Shortness of Breath Cardiovascular: Chest Pain and Edema Gastrointestinal: Nausea, Vomiting and Diarrhea Genitourinary: No Symptoms Reported Musculoskeletal: Back Pain Skin: No Symptoms Reported Neurological: Other (HEADACHE) Physical Exam Vital Signs: Vital Signs Temperature 98.0 F Temperature 97.0 F Pulse Rate [Left Brachial] 127 Pulse Rate [Left Brachial] 128 Respiratory Rate 22 Respiratory Rate 20 Respiratory Rate 32 Respiratory Rate 32 Respiratory Rate 22 Blood Pressure [Left Arm] 128/88 Blood Pressure [Left Arm] 136/98 Blood Pressure [Left Arm] 148/80 O2 Sat by Pulse Oximetry 98 O2 Sat by Pulse Oximetry 96 Oriented: Normal Eyes: Normal Ear: Right (SEROUS EFFUSION) and Left (SEROUS EFFUSION) Nose: Normal Throat: Red Respiratory: Wheezes Throughout, RLL Diminished and LLL Diminished Cardiovascular: Murmur and Edema : Normal Auscultation: Bowel Sounds: Normal Palpation: Normal Tenderness: Normal Skin: Normal Musculoskeletal: Normal, Leg and Swelling Psychiatric: Normal Mood Description: Calm Speech Pattern: Clear Assessment/Plan (1) Bilateral pneumonia: Narrative Support Text: ADMIT, IV ATBX RESP THERAPY AND SUPPLEMENTAL O2 BP CONTROL IV HYDRATION I&OS, BS CONTROL BLOOD AND SPUTUM CULTURES Status: Acute (2) Diabetes mellitus type 2 in nonobese: Status: Acute (3) Sepsis: Qualifiers: Sepsis acute organ dysfunction status: without acute organ dysfunction Sepsis type: sepsis due to unspecified organism Qualified Code(s): A41.9 - Sepsis, unspecified organism Status: Acute (4) Elevated troponin: Status: Acute (5) Hypoxia: Status: Acute
[2024-03-25 04:55] LABS: ABG BASE EXCESS 3.9 mmol/L (-2.0-2.0); ABG HCO3 27.7 mmol/L (22-26)
[2024-03-25 04:56] LABS: ABG ALLEN TEST POS
[2024-03-25 06:26] LABS: BASOPHILS # (AUTO) 0.1 X10^3/uL (0.0-0.1); BASOPHILS % (AUTO) 0.5 % (0.2-1.0); HEMATOCRIT 41.7 % (42.0-54.0); HEMOGLOBIN 13.4 g/dL (13.5-18.0); LYMPHOCYTES # (AUTO) 1.1 X10^3/uL (1.3-2.9); LYMPHOCYTES % (AUTO) 5.3 % (21.0-51.0); MEAN CORPUSCULAR HEMOGLOBIN 27.2 pg (27.0-34.0); MEAN CORPUSCULAR HGB CONC 32.3 g/dL (33.0-35.0); MEAN CORPUSCULAR VOLUME 84.4 fL (80.0-100.0); MEAN PLATELET VOLUME 7.9 fL (7.4-11.0); MONOCYTES # (AUTO) 0.5 x10^3/uL (0.3-0.8); MONOCYTES % (AUTO) 2.5 % (0.0-13.0); NEUTROPHILS % (AUTO) 91.7 % (42.0-75.0); PLATELET COUNT 671 X10^3/uL (150.0-450.0); RED BLOOD COUNT 4.94 X10^6/uL (4.7-6.0); RED CELL DISTRIBUTION WIDTH 14.6 % (11.6-16.5); WHITE BLOOD COUNT 20.7 X10^3/uL (3.6-10.0)
[2024-03-25 06:48] LABS: ALANINE AMINOTRANSFERASE 58 Units/L (12-78); ALBUMIN 2.2 g/dL (3.4-5.0); ALKALINE PHOSPHATASE 120 Units/L (46-116); ASPARTATE AMINO TRANSFERASE 25 Units/L (15-37); BLOOD UREA NITROGEN 19 mg/dL (7-18); CALCIUM 8.7 mg/dL (8.5-10.1); CHLORIDE 99 mmol/L (98-107); COR CA(FOR HYPOALB) 10.1 mg/dL (8.5-10.1); COR NA(FOR HYPERGLY) 141 mmol/L (136-145); CREATININE 1.03 mg/dL (0.70-1.30); GLUCOSE 328 mg/dL (65-99); POTASSIUM 4.2 mmol/L (3.5-5.1); SODIUM 136 mmol/L (136-145); TOTAL PROTEIN 6.5 g/dL (6.4-8.2); eGFR NON BLACK RACES > 60 (>60)
[2024-03-25 06:55] LABS: PLATELET MORPHOLOGY COMMENT NORMAL (NORMAL)
[2024-03-25 08:41] VITALS: O2SAT 94
[2024-03-25] MEDS: SOLU-Medrol 40 MG VIAL IVP SCH (10:52)
[2024-03-25] MEDS: LASIX IVP SCH (10:53)
[2024-03-25] MEDS: GLUCOPHAGE ONE (12:17)
[2024-03-25 12:54] VITALS: BP 139/84; PULSE 123; RESP 28; TEMP 98.2
== END 2024-03-25 14:50 | disposition short-term general hospital (02) | DRG 195 ==
LOC: ER 17:25 → INTOOBSV 20:13 → MED/SURG 20:13 → OBSVTOIN 20:13 → MED/SURG 21:00
PROVIDERS: ADMIT Internal Medicine; ATTEND Internal Medicine
DX: R94.31 Abnormal electrocardiogram [ECG] [EKG]; R79.89 Other specified abnormal findings of blood chemistry; J13 Pneumonia due to Streptococcus pneumoniae; R51.9 Headache, unspecified; R00.0 Tachycardia, unspecified; E11.65 Type 2 diabetes mellitus with hyperglycemia

== ENCOUNTER 2024-04-20 06:46 | Observation (INO) ==
[2024-04-20 07:08] VITALS: BMI 29.4
--- NOTE | 2024-04-20 07:10 | DR.EXTPAIN ---
HPI <Khushbu Cruz - Last Filed: 04/27/24 02:27> Time seen Time Seen by Provider: 04/20/24 07:10 PCP Primary Care Physician: HERBIE Beal Complaint/Symptoms Chief Complaint:: Pt c/o 2-3 weeks of intermittent substernal nonradiating chest pain described as sharp stabbing in nature. No alleviating or exacerbating facto rs. Pt also has c/o shortness of breath, productive cough with yellow sputum, nausea, vomiting, swelling and pain in his bilateral lower extremities and fullness in bilateral ears. COVID-19 Coronavirus risk:travel/contact w/high risk person: No Has patient experienced Coronavirus symptoms: No Source History Provided: Patient Mode of arrival Mode of Arrival: Ambulatory Timing Onset of Chief Complaint: 04/20/24 <Meño Lanier - Last Filed: 04/20/24 13:20> Complaint/Symptoms Chief Complaint Doctor Comments: 38-year-old male presents with chest pain or shortness of breath. Patient was recently hospitalized here few weeks ago for pneumonia, CHF exacerbation. Was transferred to another facility, as his troponin was trending up. Patient has a cough, productive of frothy yellow sputum, having pain across the chest, nothing makes better nothing makes it worse. He does have swelling of his legs. He feels short of breath, worse with exertion patient dry, spitting up sputum, Running low grade temps, some chills. No bowel or bladder issues, Patient still smokes a few cigarettes per day. Trying to establish with Ms. Ball, hsn't had the chance yet. Chest pain across the anterior chest, substernal, sharp stabbing, does not radiate. Nothing makes it better, nothing makes it worse. Nurses notes reviewed Nurses Notes Review: Yes PMH <Khushbu Cruz - Last Filed: 04/27/24 02:27> PMH Past Medical History: Yes Past Medical History: Anxiety, Asthma, Depression, Diabetes, Dyslipidemia, Migraines, Hypertension, Kidney Stones and Schizophrenia Past Surgical History: Yes Surgical History: Ortho Surgery Family History History of Family Medical Conditions: Yes Family Medical History: Diabetes Mellitus, Cancer, Coronary Artery Disease and Hypertension Social History Does patient currently use any type of tobacco product: Yes Have you used tobacco products in the last 12 months: Yes Type of Tobacco Use: Cigarettes Does any household member use tobacco: No Alcohol Use: Occasionally Do you use any recreational Drugs:: Yes (meth) Lives With: Friend Lives Where: Home Travel Risk Coronavirus risk:travel/contact w/high risk person: No Has patient experienced Coronavirus symptoms: No Infectious screening In the last 2 months have you had wt loss of >10#?: NO Have you had fever, night sweats or hemotysis?: No Have you traveled outside the country in the last 6 months?: No Isolation: Standard <Meño Yolande - Last Filed: 04/20/24 13:20> Review of Systems Constitutional: Weakness Eyes: No Symptoms Reported ENTM: Ear Pain and Nose Congestion Respiratoy: Productive Cough and Short of Breath Cardiovascular: Edema Gastrointestinal/Abdominal: Nausea and Vomiting Genitourinary: No Symptoms Reported Neurological: No Symptoms Reported Musculoskeletal: No Symptoms Reported Integumentary: No Symptoms Reported Hematologic/Lymphatic: No Symptoms Reported All Other Systems: Reviewed and Negative PE <Khushbu Cruz - Last Filed: 04/27/24 02:27> Vital Signs Vitals: Vital Signs Temperature 97.6 F Pulse Rate 111 Pulse Rate 110 Pulse Rate 115 Pulse Rate 111 Pulse Rate 109 Pulse Rate 112 Pulse Rate 118 Pulse Rate 114 Pulse Rate 112 Pulse Rate 114 Pulse Rate 114 Pulse Rate 117 Pulse Rate 114 Pulse Rate 111 Pulse Rate 110 Pulse Rate 110 Pulse Rate 111 Pulse Rate 110 Pulse Rate 112 Pulse Rate 120 Pulse Rate 110 Pulse Rate 122 Pulse Rate 114 Pulse Rate 116 Pulse Rate 116 Pulse Rate 117 Respiratory Rate 24 Respiratory Rate 28 Respiratory Rate 42 Respiratory Rate 21 Respiratory Rate 25 Respiratory Rate 30 Respiratory Rate 34 Respiratory Rate 26 Respiratory Rate 25 Respiratory Rate 36 Respiratory Rate 33 Respiratory Rate 33 Respiratory Rate 29 Respiratory Rate 24 Respiratory Rate 25 Respiratory Rate 23 Respiratory Rate 21 Respiratory Rate 34 Respiratory Rate 45 Respiratory Rate 28 Respiratory Rate 30 Respiratory Rate 20 Blood Pressure 147/66 Blood Pressure 128/79 Blood Pressure 137/96 Blood Pressure 123/86 Blood Pressure 112/78 Blood Pressure 141/90 Blood Pressure 139/86 Blood Pressure 131/81 Blood Pressure 134/92 Blood Pressure 133/89 Blood Pressure 129/85 O2 Sat by Pulse Oximetry 92 O2 Sat by Pulse Oximetry 86 O2 Sat by Pulse Oximetry 93 O2 Sat by Pulse Oximetry 88 O2 Sat by Pulse Oximetry 93 O2 Sat by Pulse Oximetry 90 O2 Sat by Pulse Oximetry 90 O2 Sat by Pulse Oximetry 90 O2 Sat by Pulse Oximetry 86 O2 Sat by Pulse Oximetry 90 O2 Sat by Pulse Oximetry 87 O2 Sat by Pulse Oximetry 92 O2 Sat by Pulse Oximetry 92 O2 Sat by Pulse Oximetry 94 O2 Sat by Pulse Oximetry 87 O2 Sat by Pulse Oximetry 90 O2 Sat by Pulse Oximetry 95 O2 Sat by Pulse Oximetry 79 O2 Sat by Pulse Oximetry 96 O2 Sat by Pulse Oximetry 98 O2 Sat by Pulse Oximetry 98 O2 Sat by Pulse Oximetry 98 O2 Sat by Pulse Oximetry 94 <Meño Lanier - Last Filed: 04/20/24 13:20> Vital Signs Vitals: Vital Signs Temperature 97.6 F Pulse Rate 111 Pulse Rate 110 Pulse Rate 115 Pulse Rate 111 Pulse Rate 109 Pulse Rate 112 Pulse Rate 118 Pulse Rate 114 Pulse Rate 112 Pulse Rate 114 Pulse Rate 114 Pulse Rate 117 Pulse Rate 114 Pulse Rate 111 Pulse Rate 110 Pulse Rate 110 Pulse Rate 111 Pulse Rate 110 Pulse Rate 112 Pulse Rate 120 Pulse Rate 110 Pulse Rate 122 Pulse Rate 114 Pulse Rate 116 Pulse Rate 116 Pulse Rate 117 Respiratory Rate 24 Respiratory Rate 28 Respiratory Rate 42 Respiratory Rate 21 Respiratory Rate 25 Respiratory Rate 30 Respiratory Rate 34 Respiratory Rate 26 Respiratory Rate 25 Respiratory Rate 36 Respiratory Rate 33 Respiratory Rate 33 Respiratory Rate 29 Respiratory Rate 24 Respiratory Rate 25 Respiratory Rate 23 Respiratory Rate 21 Respiratory Rate 34 Respiratory Rate 45 Respiratory Rate 28 Respiratory Rate 30 Respiratory Rate 20 Blood Pressure 147/66 Blood Pressure 128/79 Blood Pressure 137/96 Blood Pressure 123/86 Blood Pressure 112/78 Blood Pressure 141/90 Blood Pressure 139/86 Blood Pressure 131/81 Blood Pressure 134/92 Blood Pressure 133/89 Blood Pressure 129/85 O2 Sat by Pulse Oximetry 92 O2 Sat by Pulse Oximetry 86 O2 Sat by Pulse Oximetry 93 O2 Sat by Pulse Oximetry 88 O2 Sat by Pulse Oximetry 93 O2 Sat by Pulse Oximetry 90 O2 Sat by Pulse Oximetry 90 O2 Sat by Pulse Oximetry 90 O2 Sat by Pulse Oximetry 86 O2 Sat by Pulse Oximetry 90 O2 Sat by Pulse Oximetry 87 O2 Sat by Pulse Oximetry 92 O2 Sat by Pulse Oximetry 92 O2 Sat by Pulse Oximetry 94 O2 Sat by Pulse Oximetry 87 O2 Sat by Pulse Oximetry 90 O2 Sat by Pulse Oximetry 95 O2 Sat by Pulse Oximetry 79 O2 Sat by Pulse Oximetry 96 O2 Sat by Pulse Oximetry 98 O2 Sat by Pulse Oximetry 98 O2 Sat by Pulse Oximetry 98 O2 Sat by Pulse Oximetry 94 General General Appearance: Alert, In No Apparent Distress and Other (+ harsh cough) Eyes Eye exam: PERRL and EOMI ENT ENT Exam: Mucous Membranes Moist Neck Neck Exam: Normal Inspection Respiratory Respiratory Exam: Other (+ bibasilar rales); negative Accessory Muscle Use or Respiratory Distress Cardiovascular Cardiovascular Exam: Regular Rate, Normal Rhythm, Tachycardia and Normal Heart Sounds Abdominal Exam Abdominal Exam: Normal Bowel Sounds and Soft; negative Tenderness Extremities Extremities Exam: Edema Neurological Neurological Exam: Alert, Oriented X3 and CN II-XII Intact; negative Motor Sensory Deficit Skin Skin Exam: Warm and Dry <Meño Grotz - Last Filed: 04/20/24 13:20> Treatment Treatment: 38 y/o male , with frequent lung infections/CHF exacerbations. CT chest shows consolidating pneumonia of the RML, bilateral CHF changes. Pt given IV Levaquin, IV lasix here. BNP elevated at 553. Lactic acid elevated at 3.3. Not a good candidate for aggressive IV hydration, in view of his CHF, cardimyopathy. Troponin a bit up at 101, but has a h/o frequently elevated troponin, likely related to his cardiomyopathy. 2 hr troponin slightly higher. Discussed with the physician on-call, Dr. Lyman, accepts admission. Patient does not have a primary care provider ROR <Khushbu Cruz - Last Filed: 04/27/24 02:27> Labs Reviewed 04/21/24 05:35 04/21/24 05:35 Laboratory: 04/20/24 08:15 Blood Blood Culture - Final 04/20/24 08:10 Blood Blood Culture - Final WBC 8.9 X10^3/uL (3.6-10.0) 04/20/24 08:10 RBC 5.13 X10^6/uL (4.7-6.0) 04/20/24 08:10 Hgb 13.9 g/dL (13.5-18.0) 04/20/24 08:10 Hct 42.8 % (42.0-54.0) 04/20/24 08:10 MCV 83.5 fL (80.0-100.0) 04/20/24 08:10 MCH 27.0 pg (27.0-34.0) 04/20/24 08:10 MCHC 32.4 g/dL (33.0-35.0) L 04/20/24 08:10 RDW 16.2 % (11.6-16.5) 04/20/24 08:10 Plt Count 343 X10^3/uL (150.0-450.0) 04/20/24 08:10 MPV 8.4 fL (7.4-11.0) 04/20/24 08:10 Neut % (Auto) 65.4 % (42.0-75.0) 04/20/24 08:10 Lymph % (Auto) 24.4 % (21.0-51.0) 04/20/24 08:10 [place] % (Auto) 7.3 % (0.0-13.0) 04/20/24 08:10 Eos % (Auto) 1.8 % (0.9-2.9) 04/20/24 08:10 Baso % (Auto) 1.1 % (0.2-1.0) H 04/20/24 08:10 Neut # (Auto) 5.8 x10^3/uL (2.2-4.8) H 04/20/24 08:10 Lymph # (Auto) 2.2 X10^3/uL (1.3-2.9) 04/20/24 08:10 [place] # (Auto) 0.6 x10^3/uL (0.3-0.8) 04/20/24 08:10 Eos # (Auto) 0.2 x10^3/uL (0.0-0.2) 04/20/24 08:10 Baso # (Auto) 0.1 X10^3/uL (0.0-0.1) 04/20/24 08:10 Absolute Nucleated RBC 0.1 /100WBC 04/20/24 08:10 D-Dimer 0.87 ug/ml (0.0-0.57) H 04/20/24 08:10 Sodium 140 mmol/L (136-145) 04/20/24 08:10 Corrected Sodium 141 mmol/L (136-145) 04/20/24 08:10 Potassium 3.4 mmol/L (3.5-5.1) L 04/20/24 08:10 Chloride 105 mmol/L (98-107) 04/20/24 08:10 Carbon Dioxide 25.9 mmol/L (21-32) 04/20/24 08:10 BUN 12 mg/dL (7-18) 04/20/24 08:10 Creatinine 1.08 mg/dL (0.70-1.30) 04/20/24 08:10 Est GFR (MDRD) Af Amer > 60 (>60) 04/20/24 08:10 Est GFR (MDRD) Non-Af > 60 (>60) 04/20/24 08:10 Glucose 149 mg/dL (65-99) H 04/20/24 08:10 Lactic Acid 2.7 mmol/L (0.4-2.0) H 04/20/24 10:53 Calcium 8.2 mg/dL (8.5-10.1) L 04/20/24 08:10 Corrected Calcium 9.3 mg/dL (8.5-10.1) 04/20/24 08:10 Total Bilirubin 0.70 mg/dL (0.2-1.0) 04/20/24 08:10 AST 44 Units/L (15-37) H 04/20/24 08:10 ALT 70 Units/L (12-78) 04/20/24 08:10 Alkaline Phosphatase 114 Units/L (46-116) 04/20/24 08:10 Creatine Kinase 215 Units/L (39-308) 04/20/24 08:10 Troponin I High Sens 107.1 ng/L (4.0-60.0) H* 04/20/24 10:53 B-Natriuretic Peptide 553 pg/mL (0-79) H 04/20/24 08:10 Total Protein 6.3 g/dL (6.4-8.2) L 04/20/24 08:10 Albumin 2.6 g/dL (3.4-5.0) L 04/20/24 08:10 Globulin 3.7 g/dL (2.5-4.5) 04/20/24 08:10 Albumin/Globulin Ratio 0.7 Ratio (1.1-2.1) L 04/20/24 08:10 SARS-CoV-2 (PCR) Negative (NEGATIVE) 04/20/24 07:19 Influenza Type A (PCR) Negative (NEGATIVE) 04/20/24 07:19 Influenza Type B (PCR) Negative (NEGATIVE) 04/20/24 07:19 RSV (PCR) Negative (NEGATIVE) 04/20/24 07:19 <Meño Lanier - Last Filed: 04/20/24 13:20> Labs Reviewed Laboratory Results Reviewed?: Yes Laboratory: 04/20/24 08:15 Blood Blood Culture - Final 04/20/24 08:10 Blood Blood Culture - Final WBC 8.9 X10^3/uL (3.6-10.0) 04/20/24 08:10 RBC 5.13 X10^6/uL (4.7-6.0) 04/20/24 08:10 Hgb 13.9 g/dL (13.5-18.0) 04/20/24 08:10 Hct 42.8 % (42.0-54.0) 04/20/24 08:10 MCV 83.5 fL (80.0-100.0) 04/20/24 08:10 MCH 27.0 pg (27.0-34.0) 04/20/24 08:10 MCHC 32.4 g/dL (33.0-35.0) L 04/20/24 08:10 RDW 16.2 % (11.6-16.5) 04/20/24 08:10 Plt Count 343 X10^3/uL (150.0-450.0) 04/20/24 08:10 MPV 8.4 fL (7.4-11.0) 04/20/24 08:10 Neut % (Auto) 65.4 % (42.0-75.0) 04/20/24 08:10 Lymph % (Auto) 24.4 % (21.0-51.0) 04/20/24 08:10 [place] % (Auto) 7.3 % (0.0-13.0) 04/20/24 08:10 Eos % (Auto) 1.8 % (0.9-2.9) 04/20/24 08:10 Baso % (Auto) 1.1 % (0.2-1.0) H 04/20/24 08:10 Neut # (Auto) 5.8 x10^3/uL (2.2-4.8) H 04/20/24 08:10 Lymph # (Auto) 2.2 X10^3/uL (1.3-2.9) 04/20/24 08:10 [place] # (Auto) 0.6 x10^3/uL (0.3-0.8) 04/20/24 08:10 Eos # (Auto) 0.2 x10^3/uL (0.0-0.2) 04/20/24 08:10 Baso # (Auto) 0.1 X10^3/uL (0.0-0.1) 04/20/24 08:10 Absolute Nucleated RBC 0.1 /100WBC 04/20/24 08:10 D-Dimer 0.87 ug/ml (0.0-0.57) H 04/20/24 08:10 Sodium 140 mmol/L (136-145) 04/20/24 08:10 Corrected Sodium 141 mmol/L (136-145) 04/20/24 08:10 Potassium 3.4 mmol/L (3.5-5.1) L 04/20/24 08:10 Chloride 105 mmol/L (98-107) 04/20/24 08:10 Carbon Dioxide 25.9 mmol/L (21-32) 04/20/24 08:10 BUN 12 mg/dL (7-18) 04/20/24 08:10 Creatinine 1.08 mg/dL (0.70-1.30) 04/20/24 08:10 Est GFR (MDRD) Af Amer > 60 (>60) 04/20/24 08:10 Est GFR (MDRD) Non-Af > 60 (>60) 04/20/24 08:10 Glucose 149 mg/dL (65-99) H 04/20/24 08:10 Lactic Acid 2.7 mmol/L (0.4-2.0) H 04/20/24 10:53 Calcium 8.2 mg/dL (8.5-10.1) L 04/20/24 08:10 Corrected Calcium 9.3 mg/dL (8.5-10.1) 04/20/24 08:10 Total Bilirubin 0.70 mg/dL (0.2-1.0) 04/20/24 08:10 AST 44 Units/L (15-37) H 04/20/24 08:10 ALT 70 Units/L (12-78) 04/20/24 08:10 Alkaline Phosphatase 114 Units/L (46-116) 04/20/24 08:10 Creatine Kinase 215 Units/L (39-308) 04/20/24 08:10 Troponin I High Sens 107.1 ng/L (4.0-60.0) H* 04/20/24 10:53 B-Natriuretic Peptide 553 pg/mL (0-79) H 04/20/24 08:10 Total Protein 6.3 g/dL (6.4-8.2) L 04/20/24 08:10 Albumin 2.6 g/dL (3.4-5.0) L 04/20/24 08:10 Globulin 3.7 g/dL (2.5-4.5) 04/20/24 08:10 Albumin/Globulin Ratio 0.7 Ratio (1.1-2.1) L 04/20/24 08:10 SARS-CoV-2 (PCR) Negative (NEGATIVE) 04/20/24 07:19 Influenza Type A (PCR) Negative (NEGATIVE) 04/20/24 07:19 Influenza Type B (PCR) Negative (NEGATIVE) 04/20/24 07:19 RSV (PCR) Negative (NEGATIVE) 04/20/24 07:19 XRAY XRAY Interpreted by: Both X-ray Results: EXAM: CT chest without contrast HISTORY: Chest pain, shortness of breath TECHNIQUE: Axial noncontrast images with coronal and sagittal reformats. Dose reduction procedures were used with mA/kv adjusted for body size. This examination is limited due to the lack of intravenous contrast. The examination was performed in this nonenhanced manner at the sole direction of the ordering caregiver. Evaluation was further limited by repeated respiratory motion and patient motion. COMPARISON: 03/24/2024 FINDINGS: Examination of the mediastinum demonstrated no evidence for mediastinal mass, and large mediastinal or enlarged hilar adenopathy or significant aortic abnormality but only to the limitations of an unenhanced examination. Bilateral small pleural effusions are present [id number]. Heart is enlarged. Trace pericardial effusion is present. No chest wall or axillary abnormalities identified. Those portions of the upper abdominal organs visualized appeared within normal limits to the limitations of an unenhanced examination. Examination of the lung becker was significantly limited by patient respiratory motion and patient motion. However, there is diffuse body in a pattern suggestive of cardiogenic or non cardiogenic pulmonary edema. However there is also fairly extensive there are no obvious pulmonary nodules or masses however subtle nodules could be obscured by the edema, pneumonia, respiratory, and patient motion. IMPRESSION: Exam limited by lack of intravenous contrast, patient respiratory motion, patient motion Cardiomegaly, diffuse bilateral pulmonary edema, and bilateral pleural effusions Consolidating pneumonia right middle lobe THIS IS AN ELECTRONICALLY VERIFIED FINAL REPORT 04/20/2024 7:55 AM - Electronically signed by Constantino Aguilar MD EKG Rate: 112 [place]: Normal Rhythm: ST ST: Nonsp Opioid <Khushbu Cruz - Last Filed: 04/27/24 02:27> Opioid Risk Tool Age (Josias box if 16-45): Yes History of Preadolescent Sexual Abuse: No Total: 1 Total Score Risk Category: Low Risk Copyright: Martinez MARTINEZ predicting aberrant behaviors <Meño Lanier - Last Filed: 04/20/24 13:20> Opioid Risk Tool Total: 1 Total Score Risk Category: Low Risk Discharge Plan Diagnosis Discharge Problem: CHF (congestive heart failure) RML pneumonia Qualifiers: Pneumonia type: due to unspecified organism Qualified Code(s): J18.9 - Pneumonia, unspecified organism Cardiomyopathy Qualifiers: 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
--- NOTE | 2024-04-20 07:59 | CT ---
EXAM:CT chest without contrastHISTORY:Chest pain, shortness of breathTECHNIQUE:Axial noncontrast images with coronal and sagittal reformats. Dose reduction procedures were used with mA/kv adjusted for body size. This examination is limited due to the lack of intravenous contrast. The examination was performed in this nonenhanced manner at the sole direction of the ordering caregiver. Evaluation was further limited by repeated respiratory motion and patient motion.COMPARISON:03/24/2024FINDINGS:Exa mination of the mediastinum demonstrated no evidence for mediastinal mass, and large mediastinal or enlarged hilar adenopathy or significant aortic abnormality but only to the limitations of an unenhanced examination. Bilateral small pleural effusions are present [id number]. Heart is enlarged. Trace pericardial effusion is present. No chest wall or axillary abnormalities identified. Those portions of the upper abdominal organs visualized appeared within normal limits to the limitations of an unenhanced examination. Examination of the lung becker was significantly limited by patient respiratory motion and patient motion. However, there is diffuse body in a pattern suggestive of cardiogenic or non cardiogenic pulmonary edema. However there is also fairly extensive there are no obvious pulmonary nodules or masses however subtle nodules could be obscured by the edema, pneumonia, respiratory, and patient motion.IMPRESSION:Exam limited by lack of intravenous contrast, patient respiratory motion, patient motionCardiomegaly, diffuse bilateral pulmonary edema, and bilateral pleural effusionsConsolidating pneumonia right middle lobeTHIS IS AN ELECTRONICALLY VERIFIED FINAL REPORT04/20/2024 7:55 AM - Electronically signed by Constantino Aguilar MD
[2024-04-20] MEDS: ZOFRAN INJ 4 MG VIAL IVP ONE (08:19)
--- NOTE | 2024-04-20 08:24 | EKG ---
Test Reason : chest pain Blood Pressure : */* mmHG Vent. Rate : 112 BPM Atrial Rate : 112 BPM P-R Int : 136 ms QRS Dur : 82 ms QT Int : 372 ms P-R-T Axes : 68 67 88 degrees QTc Int : 507 ms Sinus tachycardia Left atrial enlargement Nonspecific T wave abnormality Abnormal ECG When compared with ECG of 28-MAR-2024 09:14, No significant change was found Confirmed by Primo Curran MD ([id number]) on 04/21/2024 5:51:10 AM Referred By: Confirmed By: Primo Curran MD
[2024-04-20 08:37] LABS: BASOPHILS # (AUTO) 0.1 X10^3/uL (0.0-0.1); BASOPHILS % (AUTO) 1.1 % (0.2-1.0); EOSINOPHILS # (AUTO) 0.2 x10^3/uL (0.0-0.2); EOSINOPHILS % (AUTO) 1.8 % (0.9-2.9); HEMATOCRIT 42.8 % (42.0-54.0); HEMOGLOBIN 13.9 g/dL (13.5-18.0); LYMPHOCYTES # (AUTO) 2.2 X10^3/uL (1.3-2.9); LYMPHOCYTES % (AUTO) 24.4 % (21.0-51.0); MEAN CORPUSCULAR HGB CONC 32.4 g/dL (33.0-35.0); MEAN CORPUSCULAR VOLUME 83.5 fL (80.0-100.0); MEAN PLATELET VOLUME 8.4 fL (7.4-11.0); MONOCYTES # (AUTO) 0.6 x10^3/uL (0.3-0.8); MONOCYTES % (AUTO) 7.3 % (0.0-13.0); NEUTROPHILS # (AUTO) 5.8 x10^3/uL (2.2-4.8); NEUTROPHILS % (AUTO) 65.4 % (42.0-75.0); PLATELET COUNT 343 X10^3/uL (150.0-450.0); RED BLOOD COUNT 5.13 X10^6/uL (4.7-6.0); RED CELL DISTRIBUTION WIDTH 16.2 % (11.6-16.5); WHITE BLOOD COUNT 8.9 X10^3/uL (3.6-10.0)
[2024-04-20] MEDS ORDERED: LASIX IVP ONE (09:01)
[2024-04-20] MEDS: LEVAQUIN PREMIX IV 750 MG 750 MG/150 ML BAG IV SCH (09:06)
[2024-04-20] MEDS: LASIX IVP ONE (09:06)
[2024-04-20 09:19] LABS: ALANINE AMINOTRANSFERASE 70 Units/L (12-78); ALBUMIN 2.6 g/dL (3.4-5.0); ALKALINE PHOSPHATASE 114 Units/L (46-116); ASPARTATE AMINO TRANSFERASE 44 Units/L (15-37); BLOOD UREA NITROGEN 12 mg/dL (7-18); CALCIUM 8.2 mg/dL (8.5-10.1); CARBON DIOXIDE 25.9 mmol/L (21-32); CHLORIDE 105 mmol/L (98-107); COR CA(FOR HYPOALB) 9.3 mg/dL (8.5-10.1); COR NA(FOR HYPERGLY) 141 mmol/L (136-145); CREATINE KINASE 215 Units/L (39-308); CREATININE 1.08 mg/dL (0.70-1.30); GLUCOSE 149 mg/dL (65-99); POTASSIUM 3.4 mmol/L (3.5-5.1); SODIUM 140 mmol/L (136-145); TOTAL PROTEIN 6.3 g/dL (6.4-8.2); eGFR NON BLACK RACES > 60 (>60)
[2024-04-20] MEDS ORDERED: CONSULT PHARMACY - POTASSIUM & MAGNESIUM XX SCH (13:15)
[2024-04-20] MEDS ORDERED: DUONEB 0.5 MG/3 MG (3 mL) NEB ONE (13:17)
[2024-04-20] MEDS: TYLENOL 500 MG TAB EXTRA STRENGTH PO ONE (13:21)
[2024-04-20] MEDS: DUONEB 0.5 MG/3 MG (3 mL) NEB SCH (13:41)
[2024-04-20] MEDS: K-DUR TAB 20 MEQ PO ONE (14:39)
[2024-04-20] MEDS: LASIX IVP SCH (17:25)
[2024-04-20] MEDS: PULMICORT NEB TX 0.5 MG NEB SCH (21:44)
[2024-04-21] MEDS: NORCO 5/325 MG TAB PO PRN (00:56)
[2024-04-21 04:05] VITALS: RESP 18
[2024-04-21 06:33] LABS: BASOPHILS # (AUTO) 0.1 X10^3/uL (0.0-0.1); BASOPHILS % (AUTO) 1.3 % (0.2-1.0); EOSINOPHILS # (AUTO) 0.2 x10^3/uL (0.0-0.2); EOSINOPHILS % (AUTO) 3.4 % (0.9-2.9); HEMATOCRIT 41.1 % (42.0-54.0); HEMOGLOBIN 13.2 g/dL (13.5-18.0); LYMPHOCYTES # (AUTO) 2.5 X10^3/uL (1.3-2.9); LYMPHOCYTES % (AUTO) 34.8 % (21.0-51.0); MEAN CORPUSCULAR HEMOGLOBIN 26.6 pg (27.0-34.0); MEAN CORPUSCULAR HGB CONC 32.1 g/dL (33.0-35.0); MEAN PLATELET VOLUME 8.5 fL (7.4-11.0); MONOCYTES # (AUTO) 0.6 x10^3/uL (0.3-0.8); MONOCYTES % (AUTO) 7.7 % (0.0-13.0); NEUTROPHILS # (AUTO) 3.8 x10^3/uL (2.2-4.8); NEUTROPHILS % (AUTO) 52.8 % (42.0-75.0); PLATELET COUNT 332 X10^3/uL (150.0-450.0); RED BLOOD COUNT 4.95 X10^6/uL (4.7-6.0); RED CELL DISTRIBUTION WIDTH 16.2 % (11.6-16.5); WHITE BLOOD COUNT 7.2 X10^3/uL (3.6-10.0)
[2024-04-21 06:42] LABS: ALANINE AMINOTRANSFERASE 59 Units/L (12-78); ALBUMIN 2.5 g/dL (3.4-5.0); ALKALINE PHOSPHATASE 101 Units/L (46-116); ASPARTATE AMINO TRANSFERASE 27 Units/L (15-37); BLOOD UREA NITROGEN 13 mg/dL (7-18); CALCIUM 8.5 mg/dL (8.5-10.1); CARBON DIOXIDE 27.9 mmol/L (21-32); CHLORIDE 102 mmol/L (98-107); COR CA(FOR HYPOALB) 9.7 mg/dL (8.5-10.1); COR NA(FOR HYPERGLY) 142 mmol/L (136-145); GLUCOSE 164 mg/dL (65-99); MAGNESIUM 1.7 mg/dL (2.0-2.9); POTASSIUM 3.1 mmol/L (3.5-5.1); SODIUM 140 mmol/L (136-145); TOTAL PROTEIN 6.2 g/dL (6.4-8.2); eGFR NON BLACK RACES > 60 (>60)
[2024-04-21] MEDS: MAG-OX TAB PO SCH (08:29)
[2024-04-21] MEDS: K-DUR TAB 20 MEQ PO SCH (08:29)
[2024-04-21] MEDS ORDERED: LEVAQUIN PREMIX IV 750 MG 750 MG/150 ML BAG IV SCH (09:00)
[2024-04-21] MEDS ORDERED: CONSULT PHARMACY - POTASSIUM & MAGNESIUM XX SCH (09:00)
[2024-04-21 09:20] VITALS: BP 116/67; PULSE 117; TEMP 97.9; O2SAT 94
--- NOTE | 2024-04-21 12:47 | DR.H&P ---
H&P History & Physical for Day of: H&P Date: 04/20/24 Chief Complaint Chief Complaint: cough History of Present Illness History of Present Illness: Patient with a long history of admissions related to cardiomyopathy with CHF exacerbations and/or pneumonias. Found to have a right middle lobe pneumonia in the ER and bilateral pleural effusions. He reports he is having pain in his chest that radiates up into his neck and across his right shoulder. He does report he has an injury to the right shoulder that has not healed over a year without obvious deformity. He denies fevers, chills, leg swelling, facial or hand swelling, palpitations, or syncope. He reports he does feel better after nebulizations in the ER. IV Levaquin is hanging on the IV pole. Past medical history significant for cardiomyopathy with a EF of 15%, hypertension, insulin-dependent diabetes, hyperlipidemia, and COPD. Past surgical history significant for lancing of multiple facial bowls, EGD. Family history significant for mother from coronary disease at 47. Father alive with coronary disease in his 50s. Social history: Does admit to half a pack per day of cigarettes for 22 years. Occasional ethanol use. History of meth and cocaine abuse. Does use occasional marijuana. He is currently unemployed due to his medical issues and from his spouse 12 point review of system negative except as noted in HPI Past Medical History Past Medical History: Anxiety, Asthma, Depression, Diabetes, Dyslipidemia, Migraines, Hypertension, Kidney Stones and Schizophrenia Past Surgical History Surgical History: Ortho Surgery Family History Family Medical History: Diabetes Mellitus and Heart Failure Social History Does patient currently use any type of tobacco product: Yes Have you used tobacco products in the last 12 months: Yes Type of Tobacco Use: Cigarettes How many years tobacco product used: 20 Does any household member use tobacco: No Alcohol Use: Occasionally Drug Use: Methamphetamine Medications Home Medications: Home Medications Medication Instructions Recorded Confirmed Type gabapentin 800 mg tablet 800 mg PO TID 04/20/24 04/20/24 History Allergies Allergies Allergy/AdvReac Type Severity Reaction Status Date / Time lisinopril Allergy Verified 03/28/24 09:01 Labs 04/21/24 05:35 04/21/24 05:35 Labs: Laboratory WBC 7.2 X10^3/uL (3.6-10.0) 04/21/24 05:35 RBC 4.95 X10^6/uL (4.7-6.0) 04/21/24 05:35 Hgb 13.2 g/dL (13.5-18.0) L 04/21/24 05:35 Hct 41.1 % (42.0-54.0) L 04/21/24 05:35 MCV 83.0 fL (80.0-100.0) 04/21/24 05:35 MCH 26.6 pg (27.0-34.0) L 04/21/24 05:35 MCHC 32.1 g/dL (33.0-35.0) L 04/21/24 05:35 RDW 16.2 % (11.6-16.5) 04/21/24 05:35 Plt Count 332 X10^3/uL (150.0-450.0) 04/21/24 05:35 MPV 8.5 fL (7.4-11.0) 04/21/24 05:35 Neut % (Auto) 52.8 % (42.0-75.0) 04/21/24 05:35 Lymph % (Auto) 34.8 % (21.0-51.0) 04/21/24 05:35 [place] % (Auto) 7.7 % (0.0-13.0) 04/21/24 05:35 Eos % (Auto) 3.4 % (0.9-2.9) H 04/21/24 05:35 Baso % (Auto) 1.3 % (0.2-1.0) H 04/21/24 05:35 Neut # (Auto) 3.8 x10^3/uL (2.2-4.8) 04/21/24 05:35 Lymph # (Auto) 2.5 X10^3/uL (1.3-2.9) 04/21/24 05:35 [place] # (Auto) 0.6 x10^3/uL (0.3-0.8) 04/21/24 05:35 Eos # (Auto) 0.2 x10^3/uL (0.0-0.2) 04/21/24 05:35 Baso # (Auto) 0.1 X10^3/uL (0.0-0.1) 04/21/24 05:35 Absolute Nucleated RBC 0.1 /100WBC 04/21/24 05:35 D-Dimer 0.87 ug/ml (0.0-0.57) H 04/20/24 08:10 Sodium 140 mmol/L (136-145) 04/21/24 05:35 Corrected Sodium 142 mmol/L (136-145) 04/21/24 05:35 Potassium 3.1 mmol/L (3.5-5.1) L 04/21/24 05:35 Chloride 102 mmol/L (98-107) 04/21/24 05:35 Carbon Dioxide 27.9 mmol/L (21-32) 04/21/24 05:35 BUN 13 mg/dL (7-18) 04/21/24 05:35 Creatinine 1.10 mg/dL (0.70-1.30) 04/21/24 05:35 Est GFR (MDRD) Af Amer > 60 (>60) 04/21/24 05:35 Est GFR (MDRD) Non-Af > 60 (>60) 04/21/24 05:35 Glucose 164 mg/dL (65-99) H 04/21/24 05:35 POC Glucose (mg/dL) 125 mg/dL (65-99) H 04/20/24 17:39 Lactic Acid 3.5 mmol/L (0.4-2.0) H 04/20/24 19:50 Calcium 8.5 mg/dL (8.5-10.1) 04/21/24 05:35 Corrected Calcium 9.7 mg/dL (8.5-10.1) 04/21/24 05:35 Magnesium 1.7 mg/dL (2.0-2.9) L 04/21/24 05:35 Total Bilirubin 0.50 mg/dL (0.2-1.0) 04/21/24 05:35 AST 27 Units/L (15-37) 04/21/24 05:35 ALT 59 Units/L (12-78) 04/21/24 05:35 Alkaline Phosphatase 101 Units/L (46-116) 04/21/24 05:35 Creatine Kinase 215 Units/L (39-308) 04/20/24 08:10 Troponin I High Sens 107.1 ng/L (4.0-60.0) H* 04/20/24 10:53 B-Natriuretic Peptide 553 pg/mL (0-79) H 04/20/24 08:10 Total Protein 6.2 g/dL (6.4-8.2) L 04/21/24 05:35 Albumin 2.5 g/dL (3.4-5.0) L 04/21/24 05:35 Globulin 3.7 g/dL (2.5-4.5) 04/21/24 05:35 Albumin/Globulin Ratio 0.7 Ratio (1.1-2.1) L 04/21/24 05:35 SARS-CoV-2 (PCR) Negative (NEGATIVE) 04/20/24 07:19 Influenza Type A (PCR) Negative (NEGATIVE) 04/20/24 07:19 Influenza Type B (PCR) Negative (NEGATIVE) 04/20/24 07:19 RSV (PCR) Negative (NEGATIVE) 04/20/24 07:19 Physical Exam Vital Signs: Vital Signs Temperature 97.9 F Pulse Rate [Bilateral Radial] 117 Respiratory Rate 18 Respiratory Rate 18 Blood Pressure [Left Arm] 116/67 O2 Sat by Pulse Oximetry 94 Oriented: Normal Eyes: Normal Ear: Normal Respiratory: Diminished Throughout, RML Absent, RLL Rales and LLL Rales Cardiovascular: Normal : Normal Auscultation: Bowel Sounds: Normal Palpation: Normal Tenderness: Normal Skin: Normal Musculoskeletal: Clavicle (Right clavicle with distal deformity) Psychiatric: Normal Mood Description: Calm Affect: Normal Speech Pattern: Clear Assessment/Plan (1) RML pneumonia: Qualifiers: Pneumonia type: due to unspecified organism Qualified Code(s): J18.9 - Pneumonia, unspecified organism Narrative Support Text: Continue Levaquin and nebulizers. Status: Acute (2) Cardiomyopathy: Qualifiers: Cardiomyopathy type: due to drug Qualified Code(s): I42.7 - Cardiomyopathy due to drug and external agent Narrative Support Text: Continue Lasix and blood pressure control. Status: Acute (3) Acute exacerbation of CHF (congestive heart failure): Qualifiers: Heart failure type: systolic Qualified Code(s): I50.23 - Acute on pin sorter and bagger mark systolic (congestive) heart failure Narrative Support Text: Continue diuretics. Status: Acute (4) Right shoulder pain: Qualifiers: Chronicity: chronic Qualified Code(s): M25.511 - Pain in right shoulder; G89.29 - Other chronic pain Narrative Support Text: Needs outpatient orthopedic evaluation for likely AC dislocation. Status: Acute
--- NOTE | 2024-04-21 12:49 | PCM.DCPLAN ---
DISCHARGE SUMMARY Admission Date Date of Admission: 04/20/24 Discharge Date Discharge Date: 04/21/24 Admission Diagnoses (1) RML pneumonia: Status: Acute (2) Cardiomyopathy: Status: Acute (3) Acute exacerbation of CHF (congestive heart failure): Status: Acute (4) Right shoulder pain: Status: Acute Discharge Medications Discharge Medications: Home Medication List gabapentin 800 mg tablet 800 mg PO TID 04/20/24 [History] albuterol sulfate 2.5 mg/0.5 mL solution for nebulization 2.5 mg (0.5 mL) inhalation QID PRN #2 ea 04/21/24 [Rx] doxycycline hyclate 100 mg capsule 100 mg PO BID #14 caps 04/21/24 [Rx] Prescriptions: albuterol sulfate Lupillo Lyman doxycycline hyclate Lupillo Lyman Hospital Course Vital Signs: Vital Signs Temperature 97.9 F Pulse Rate [Bilateral Radial] 117 Respiratory Rate 18 Respiratory Rate 18 Blood Pressure [Left Arm] 116/67 O2 Sat by Pulse Oximetry 94 Latest Lab Results: Laboratory Last Values WBC 7.2 X10^3/uL (3.6-10.0) 04/21/24 05:35 RBC 4.95 X10^6/uL (4.7-6.0) 04/21/24 05:35 Hgb 13.2 g/dL (13.5-18.0) L 04/21/24 05:35 Hct 41.1 % (42.0-54.0) L 04/21/24 05:35 MCV 83.0 fL (80.0-100.0) 04/21/24 05:35 MCH 26.6 pg (27.0-34.0) L 04/21/24 05:35 MCHC 32.1 g/dL (33.0-35.0) L 04/21/24 05:35 RDW 16.2 % (11.6-16.5) 04/21/24 05:35 Plt Count 332 X10^3/uL (150.0-450.0) 04/21/24 05:35 MPV 8.5 fL (7.4-11.0) 04/21/24 05:35 Neut % (Auto) 52.8 % (42.0-75.0) 04/21/24 05:35 Lymph % (Auto) 34.8 % (21.0-51.0) 04/21/24 05:35 [place] % (Auto) 7.7 % (0.0-13.0) 04/21/24 05:35 Eos % (Auto) 3.4 % (0.9-2.9) H 04/21/24 05:35 Baso % (Auto) 1.3 % (0.2-1.0) H 04/21/24 05:35 Neut # (Auto) 3.8 x10^3/uL (2.2-4.8) 04/21/24 05:35 Lymph # (Auto) 2.5 X10^3/uL (1.3-2.9) 04/21/24 05:35 [place] # (Auto) 0.6 x10^3/uL (0.3-0.8) 04/21/24 05:35 Eos # (Auto) 0.2 x10^3/uL (0.0-0.2) 04/21/24 05:35 Baso # (Auto) 0.1 X10^3/uL (0.0-0.1) 04/21/24 05:35 Absolute Nucleated RBC 0.1 /100WBC 04/21/24 05:35 D-Dimer 0.87 ug/ml (0.0-0.57) H 04/20/24 08:10 Sodium 140 mmol/L (136-145) 04/21/24 05:35 Corrected Sodium 142 mmol/L (136-145) 04/21/24 05:35 Potassium 3.1 mmol/L (3.5-5.1) L 04/21/24 05:35 Chloride 102 mmol/L (98-107) 04/21/24 05:35 Carbon Dioxide 27.9 mmol/L (21-32) 04/21/24 05:35 BUN 13 mg/dL (7-18) 04/21/24 05:35 Creatinine 1.10 mg/dL (0.70-1.30) 04/21/24 05:35 Est GFR (MDRD) Af Amer > 60 (>60) 04/21/24 05:35 Est GFR (MDRD) Non-Af > 60 (>60) 04/21/24 05:35 Glucose 164 mg/dL (65-99) H 04/21/24 05:35 POC Glucose (mg/dL) 125 mg/dL (65-99) H 04/20/24 17:39 Lactic Acid 3.5 mmol/L (0.4-2.0) H 04/20/24 19:50 Calcium 8.5 mg/dL (8.5-10.1) 04/21/24 05:35 Corrected Calcium 9.7 mg/dL (8.5-10.1) 04/21/24 05:35 Magnesium 1.7 mg/dL (2.0-2.9) L 04/21/24 05:35 Total Bilirubin 0.50 mg/dL (0.2-1.0) 04/21/24 05:35 AST 27 Units/L (15-37) 04/21/24 05:35 ALT 59 Units/L (12-78) 04/21/24 05:35 Alkaline Phosphatase 101 Units/L (46-116) 04/21/24 05:35 Creatine Kinase 215 Units/L (39-308) 04/20/24 08:10 Troponin I High Sens 107.1 ng/L (4.0-60.0) H* 04/20/24 10:53 B-Natriuretic Peptide 553 pg/mL (0-79) H 04/20/24 08:10 Total Protein 6.2 g/dL (6.4-8.2) L 04/21/24 05:35 Albumin 2.5 g/dL (3.4-5.0) L 04/21/24 05:35 Globulin 3.7 g/dL (2.5-4.5) 04/21/24 05:35 Albumin/Globulin Ratio 0.7 Ratio (1.1-2.1) L 04/21/24 05:35 SARS-CoV-2 (PCR) Negative (NEGATIVE) 04/20/24 07:19 Influenza Type A (PCR) Negative (NEGATIVE) 04/20/24 07:19 Influenza Type B (PCR) Negative (NEGATIVE) 04/20/24 07:19 RSV (PCR) Negative (NEGATIVE) 04/20/24 07:19 Hospital Course: Patient admitted yesterday for right middle lobe pneumonia, CHF exacerbation, COPD exacerbation. Responded well to nebulizers, Levaquin, and Lasix. He is feeling back to his baseline today. He does plan on getting with a PCP as he now has insurance active. He does agree to follow-up with cardiology and orthopedics for evaluation of his heart failure and his right shoulder pain. He was discharged on Levaquin, albuterol, and his home medications in good condition.
== END 2024-04-21 10:40 | disposition home or self-care (01) ==
LOC: ER 06:50 → U 12:00 → INTOOBSV 12:00 → MED/SURG 12:26
PROVIDERS: ADMIT Family Medicine; ATTEND Family Medicine
DX: M25.511 Pain in right shoulder; R06.02 Shortness of breath; R79.89 Other specified abnormal findings of blood chemistry; E78.5 Hyperlipidemia, unspecified; R07.89 Other chest pain; R00.0 Tachycardia, unspecified; R94.31 Abnormal electrocardiogram [ECG] [EKG]; J90 Pleural effusion, not elsewhere classified; M54.2 Cervicalgia; R79.1 Abnormal coagulation profile; Z79.4 Long term (current) use of insulin; J18.8 Other pneumonia, unspecified organism; I42.7 Cardiomyopathy due to drug and external agent; I11.0 Hypertensive heart disease with heart failure; E11.65 Type 2 diabetes mellitus with hyperglycemia; Z20.822 Contact with and (suspected) exposure to COVID-19; I50.23 Acute on chronic systolic (congestive) heart failure; J44.1 Chronic obstructive pulmonary disease with (acute) exacerbation

== ENCOUNTER 2024-07-04 14:12 | Observation (INO) ==
--- NOTE | 2024-07-04 14:43 | DR.CP ---
HPI Time Seen Time Seen by Provider: 07/04/24 14:34 PCP Primary Care Physician: none Complaint Chief Complaint:: Patient c/o of evans chest pain in the middle of his chest that doesnt radiate that started this morning along with coughing up blood and sob. Self Treatment fo Chief Complaint: regular meds COVID-19 Coronavirus risk:travel/contact w/high risk person: No Has patient experienced Coronavirus symptoms: No Source History Provided: Patient Mode of Arrival Mode of Arrival: Ambulatory Timing Onset of Chief Complaint: 07/04/24 PMH PMH Past Medical History: Yes Past Medical History: Anxiety, CHF, Diabetes and Schizophrenia Past Surgical History: Yes Surgical History: Ortho Surgery Family History History of Family Medical Conditions: Yes Family Medical History: Diabetes Mellitus, Cancer and Heart Failure Social History Does patient currently use any type of tobacco product: Yes Have you used tobacco products in the last 12 months: Yes Type of Tobacco Use: Cigarettes Does any household member use tobacco: Yes Alcohol Use: Occasionally Do you use any recreational Drugs:: Yes (last week meth) Lives With: Other Lives Where: [facility] Travel Risk Coronavirus risk:travel/contact w/high risk person: No Has patient experienced Coronavirus symptoms: No Infectious screening In the last 2 months have you had wt loss of >10#?: NO Have you had fever, night sweats or hemotysis?: No Have you traveled outside the country in the last 6 months?: No Isolation: Standard PE Vitals Vitals: Vital Signs Temperature 98.4 F Pulse Rate 101 Pulse Rate 104 Pulse Rate 102 Pulse Rate 104 Pulse Rate 104 Pulse Rate 105 Pulse Rate 107 Pulse Rate 107 Pulse Rate 111 Pulse Rate 110 Pulse Rate 107 Pulse Rate 106 Pulse Rate 109 Pulse Rate 110 Pulse Rate 109 Pulse Rate 108 Pulse Rate 109 Pulse Rate 109 Pulse Rate 110 Pulse Rate 110 Pulse Rate 110 Pulse Rate 110 Pulse Rate 109 Pulse Rate 108 Pulse Rate 108 Pulse Rate 112 Pulse Rate 111 Respiratory Rate 22 Respiratory Rate 20 Respiratory Rate 28 Respiratory Rate 33 Respiratory Rate 33 Respiratory Rate 22 Respiratory Rate 0 Respiratory Rate 34 Respiratory Rate 30 Respiratory Rate 30 Respiratory Rate 33 Respiratory Rate 34 Respiratory Rate 30 Respiratory Rate 35 Blood Pressure 135/96 Blood Pressure 147/97 Blood Pressure 138/93 Blood Pressure 136/103 Blood Pressure 150/91 O2 Sat by Pulse Oximetry 96 O2 Sat by Pulse Oximetry 96 O2 Sat by Pulse Oximetry 98 O2 Sat by Pulse Oximetry 97 O2 Sat by Pulse Oximetry 96 O2 Sat by Pulse Oximetry 96 O2 Sat by Pulse Oximetry 98 O2 Sat by Pulse Oximetry 96 O2 Sat by Pulse Oximetry 96 O2 Sat by Pulse Oximetry 97 O2 Sat by Pulse Oximetry 98 O2 Sat by Pulse Oximetry 96 O2 Sat by Pulse Oximetry 99 O2 Sat by Pulse Oximetry 96 O2 Sat by Pulse Oximetry 95 O2 Sat by Pulse Oximetry 98 O2 Sat by Pulse Oximetry 97 O2 Sat by Pulse Oximetry 96 O2 Sat by Pulse Oximetry 95 O2 Sat by Pulse Oximetry 94 O2 Sat by Pulse Oximetry 92 O2 Sat by Pulse Oximetry 93 O2 Sat by Pulse Oximetry 93 O2 Sat by Pulse Oximetry 95 O2 Sat by Pulse Oximetry 94 O2 Sat by Pulse Oximetry 96 O2 Sat by Pulse Oximetry 96 ROR Labs Reviewed 07/04/24 15:05 07/04/24 15:05 Laboratory: WBC 9.0 X10^3/uL (3.6-10.0) 07/04/24 15:05 RBC 5.30 X10^6/uL (4.7-6.0) 07/04/24 15:05 Hgb 13.4 g/dL (13.5-18.0) L 07/04/24 15:05 Hct 42.5 % (42.0-54.0) 07/04/24 15:05 MCV 80.1 fL (80.0-100.0) 07/04/24 15:05 MCH 25.2 pg (27.0-34.0) L 07/04/24 15:05 MCHC 31.5 g/dL (33.0-35.0) L 07/04/24 15:05 RDW 17.7 % (11.6-16.5) H 07/04/24 15:05 Plt Count 267 X10^3/uL (150.0-450.0) 07/04/24 15:05 MPV 8.4 fL (7.4-11.0) 07/04/24 15:05 Neut % (Auto) 75.3 % (42.0-75.0) H 07/04/24 15:05 Lymph % (Auto) 18.5 % (21.0-51.0) L 07/04/24 15:05 [place] % (Auto) 4.2 % (0.0-13.0) 07/04/24 15:05 Eos % (Auto) 1.5 % (0.9-2.9) 07/04/24 15:05 Baso % (Auto) 0.5 % (0.2-1.0) 07/04/24 15:05 Neut # (Auto) 6.8 x10^3/uL (2.2-4.8) H 07/04/24 15:05 Lymph # (Auto) 1.7 X10^3/uL (1.3-2.9) 07/04/24 15:05 [place] # (Auto) 0.4 x10^3/uL (0.3-0.8) 07/04/24 15:05 Eos # (Auto) 0.1 x10^3/uL (0.0-0.2) 07/04/24 15:05 Baso # (Auto) 0.0 X10^3/uL (0.0-0.1) 07/04/24 15:05 Absolute Nucleated RBC 0.2 /100WBC 07/04/24 15:05 PT 13.8 SECONDS (11.8-14.3) 07/04/24 15:05 INR Target Range - 07/04/24 15:05 INR 1.08 (0.8-1.3) 07/04/24 15:05 APTT 26.8 SECONDS (22.9-36.5) 07/04/24 15:05 PTT Comment - 07/04/24 15:05 Sodium 137 mmol/L (136-145) 07/04/24 15:05 Corrected Sodium 139 mmol/L (136-145) 07/04/24 15:05 Potassium 3.5 mmol/L (3.5-5.1) 07/04/24 15:05 Chloride 102 mmol/L (98-107) 07/04/24 15:05 Carbon Dioxide 25.1 mmol/L (21-32) 07/04/24 15:05 BUN 9 mg/dL (7-18) 07/04/24 15:05 Creatinine 0.97 mg/dL (0.70-1.30) 07/04/24 15:05 Est GFR (MDRD) Af Amer > 60 (>60) 07/04/24 15:05 Est GFR (MDRD) Non-Af > 60 (>60) 07/04/24 15:05 Glucose 172 mg/dL (65-99) H 07/04/24 15:05 Calcium 8.4 mg/dL (8.5-10.1) L 07/04/24 15:05 Corrected Calcium 9.0 mg/dL (8.5-10.1) 07/04/24 15:05 Magnesium 1.3 mg/dL (2.0-2.9) L 07/04/24 15:05 Total Bilirubin 0.50 mg/dL (0.2-1.0) 07/04/24 15:05 AST 17 Units/L (15-37) 07/04/24 15:05 ALT 30 Units/L (12-78) 07/04/24 15:05 Alkaline Phosphatase 112 Units/L (46-116) 07/04/24 15:05 Creatine Kinase 120 Units/L (39-308) 07/04/24 15:05 Troponin I High Sens 109.3 ng/L (4.0-60.0) H* 07/04/24 17:10 B-Natriuretic Peptide 917 pg/mL (0-79) H 07/04/24 15:05 Total Protein 6.4 g/dL (6.4-8.2) 07/04/24 15:05 Albumin 3.2 g/dL (3.4-5.0) L 07/04/24 15:05 Globulin 3.2 g/dL (2.5-4.5) 07/04/24 15:05 Albumin/Globulin Ratio 1.0 Ratio (1.1-2.1) L 07/04/24 15:05 Specimen Type Clean catch urine 07/04/24 19:23 Urine Color Yellow (YELLOW) 07/04/24 19:23 Urine Appearance Clear (CLEAR) 07/04/24 19:23 Urine pH 6.0 (5.0 - 8.0) 07/04/24 19:23 Ur Specific [place] 1.015 (1.000-1.030) 07/04/24 19:23 Urine Protein Negative (NEGATIVE) 07/04/24 19: Urine Glucose (UA) 2+ (NEGATIVE) 07/04/24 19:23 Urine Ketones Negative (NEGATIVE) 07/04/24 19: Urine Blood Negative (NEGATIVE) 07/04/24 19:23 Urine Nitrite Negative (NEGATIVE) 07/04/24 19:23 Urine Bilirubin Negative (NEGATIVE) 07/04/24 19:23 Urine Urobilinogen Normal (NORMAL) 07/04/24 19:23 Ur Leukocyte Esterase Negative (NEGATIVE) 07/04/24 19:23 SARS-CoV-2 (PCR) Negative (NEGATIVE) 07/04/24 14:47 Opioid Opioid Risk Tool Age (Josias box if 16-45): Yes History of Preadolescent Sexual Abuse: No Total: 1 Total Score Risk Category: Low Risk Copyright: Martinez MARTINEZ predicting aberrant behaviors Discharge Plan Diagnosis Discharge Problem: Chest pain, CHF (congestive heart failure), SOB (shortness of breath) Discharge Plan Patient Disposition: 01 HOME, SELF-CARE Condition: Stable Orders to Discharge Patient Discharge Orders: Transfer (Routine); Ordered 07/04/24 Ordered By: CHASTITY NAVARRETE
--- NOTE | 2024-07-04 14:51 | EKG ---
Test Reason : chest pain Blood Pressure : */* mmHG Vent. Rate : 106 BPM Atrial Rate : 106 BPM P-R Int : 130 ms QRS Dur : 84 ms QT Int : 336 ms P-R-T Axes : 70 48 52 degrees QTc Int : 446 ms Sinus tachycardia Left atrial enlargement Nonspecific T wave abnormality Abnormal ECG When compared with ECG of 21-JUN-2024 02:03, No significant change was found Confirmed by Primo Curran MD ([id number]) on 07/04/2024 2:50:04 PM Referred By: Confirmed By: Primo Curran MD
[2024-07-04 15:17] LABS: BASOPHILS % (AUTO) 0.5 % (0.2-1.0); EOSINOPHILS # (AUTO) 0.1 x10^3/uL (0.0-0.2); EOSINOPHILS % (AUTO) 1.5 % (0.9-2.9); HEMATOCRIT 42.5 % (42.0-54.0); HEMOGLOBIN 13.4 g/dL (13.5-18.0); LYMPHOCYTES # (AUTO) 1.7 X10^3/uL (1.3-2.9); LYMPHOCYTES % (AUTO) 18.5 % (21.0-51.0); MEAN CORPUSCULAR HEMOGLOBIN 25.2 pg (27.0-34.0); MEAN CORPUSCULAR HGB CONC 31.5 g/dL (33.0-35.0); MEAN CORPUSCULAR VOLUME 80.1 fL (80.0-100.0); MEAN PLATELET VOLUME 8.4 fL (7.4-11.0); MONOCYTES # (AUTO) 0.4 x10^3/uL (0.3-0.8); MONOCYTES % (AUTO) 4.2 % (0.0-13.0); NEUTROPHILS # (AUTO) 6.8 x10^3/uL (2.2-4.8); NEUTROPHILS % (AUTO) 75.3 % (42.0-75.0); PLATELET COUNT 267 X10^3/uL (150.0-450.0); RED CELL DISTRIBUTION WIDTH 17.7 % (11.6-16.5)
[2024-07-04 15:21] LABS: INR 1.08 (0.8-1.3)
[2024-07-04 15:55] LABS: ALANINE AMINOTRANSFERASE 30 Units/L (12-78); ALBUMIN 3.2 g/dL (3.4-5.0); ALKALINE PHOSPHATASE 112 Units/L (46-116); ASPARTATE AMINO TRANSFERASE 17 Units/L (15-37); BLOOD UREA NITROGEN 9 mg/dL (7-18); CALCIUM 8.4 mg/dL (8.5-10.1); CARBON DIOXIDE 25.1 mmol/L (21-32); CHLORIDE 102 mmol/L (98-107); COR NA(FOR HYPERGLY) 139 mmol/L (136-145); CREATININE 0.97 mg/dL (0.70-1.30); GLUCOSE 172 mg/dL (65-99); POTASSIUM 3.5 mmol/L (3.5-5.1); SODIUM 137 mmol/L (136-145); TOTAL PROTEIN 6.4 g/dL (6.4-8.2); eGFR NON BLACK RACES > 60 (>60)
--- NOTE | 2024-07-04 15:57 | RAD ---
EXAM:CHEST, 1 VIEWHISTORY:chest pain;COMPARISON:No relevant prior studies were available for comparison at the time of interpretation.TECHNIQUE:CHEST, 1 VIEWFINDINGS:Chest:Lines and tubes: NoneMediastinum: Borderline cardiomegaly.Pulmonary vessels: Pulmonary vasculature is prominent.Lung becker: Patchy opacities are seenPleura: No effusion. No pneumothorax.Bones and soft tissues: No acute osseous or soft tissue abnormality.IMPRESSION:1. Findings suggest heart failureTHIS IS AN ELECTRONICALLY VERIFIED FINAL REPORT07/04/2024 3:54 PM - Electronically signed by Tomer Blankenship MD
[2024-07-04] MEDS: TORADOL 30 MG VIAL IVP ONE (18:08)
[2024-07-04] MEDS: LASIX IVP ONE (18:51)
[2024-07-04] MEDS: MAGNESIUM SULFATE 1 GRAM/100 mL PREMIX 1 G/100 ML BAG IV SCH (19:22)
[2024-07-04 19:32] LABS: APPEARANCE,URINE CLEAR (CLEAR); BILIRUBIN,URINE NEGATIVE (NEGATIVE); BLOOD/HEMOGLOBIN,URINE NEGATIVE (NEGATIVE); COLOR,URINE YELLOW (YELLOW); GLUCOSE, URINE 2+ (NEGATIVE); KETONES,URINE NEGATIVE (NEGATIVE); LEUKOCYTE ESTERASE ,URINE NEGATIVE (NEGATIVE); NITRITES,URINE NEGATIVE (NEGATIVE); PROTEIN,URINE NEGATIVE (NEGATIVE); UROBILINOGEN,URINE NORMAL (NORMAL)
[2024-07-04 21:09] VITALS: BMI 28.3
[2024-07-04] MEDS: LOPRESSOR TAB 25 MG PO SCH (22:05)
[2024-07-04] MEDS ORDERED: NORCO 5/325 MG TAB PO PRN (22:37)
[2024-07-04] MEDS: MORPHINE SULFATE INJ 2 MG INJ IVP PRN (22:47)
[2024-07-05 05:09] LABS: BASOPHILS % (AUTO) 0.6 % (0.2-1.0); EOSINOPHILS # (AUTO) 0.2 x10^3/uL (0.0-0.2); EOSINOPHILS % (AUTO) 3.1 % (0.9-2.9); HEMATOCRIT 41.2 % (42.0-54.0); HEMOGLOBIN 13.2 g/dL (13.5-18.0); LYMPHOCYTES # (AUTO) 2.1 X10^3/uL (1.3-2.9); LYMPHOCYTES % (AUTO) 28.2 % (21.0-51.0); MEAN CORPUSCULAR HEMOGLOBIN 25.5 pg (27.0-34.0); MEAN CORPUSCULAR VOLUME 79.9 fL (80.0-100.0); MEAN PLATELET VOLUME 8.9 fL (7.4-11.0); MONOCYTES # (AUTO) 0.4 x10^3/uL (0.3-0.8); MONOCYTES % (AUTO) 5.9 % (0.0-13.0); NEUTROPHILS # (AUTO) 4.6 x10^3/uL (2.2-4.8); NEUTROPHILS % (AUTO) 62.2 % (42.0-75.0); PLATELET COUNT 269 X10^3/uL (150.0-450.0); RED BLOOD COUNT 5.15 X10^6/uL (4.7-6.0); RED CELL DISTRIBUTION WIDTH 17.6 % (11.6-16.5); WHITE BLOOD COUNT 7.4 X10^3/uL (3.6-10.0)
[2024-07-05 05:22] LABS: ALANINE AMINOTRANSFERASE 26 Units/L (12-78); ALBUMIN 2.8 g/dL (3.4-5.0); ALKALINE PHOSPHATASE 106 Units/L (46-116); ASPARTATE AMINO TRANSFERASE 15 Units/L (15-37); BLOOD UREA NITROGEN 9 mg/dL (7-18); CARBON DIOXIDE 25.6 mmol/L (21-32); CHLORIDE 102 mmol/L (98-107); CHOL/HDL RATIO 3.1 (0.0-5.0); CHOLESTEROL 122 mg/dL (0-200); COR NA(FOR HYPERGLY) 138 mmol/L (136-145); CREATININE 0.91 mg/dL (0.70-1.30); GLUCOSE 126 mg/dL (65-99); HDL CHOLESTEROL 39 mg/dL (40-60); MAGNESIUM 1.6 mg/dL (2.0-2.9); POTASSIUM 3.3 mmol/L (3.5-5.1); SODIUM 137 mmol/L (136-145); TOTAL PROTEIN 5.8 g/dL (6.4-8.2); TRIGLYCERIDES 96 mg/dL (0-150); eGFR NON BLACK RACES > 60 (>60)
[2024-07-05] MEDS ORDERED: CONSULT PHARMACY - POTASSIUM & MAGNESIUM XX SCH (06:00)
[2024-07-05] MEDS: K-DUR TAB 20 MEQ PO SCH ×2 (08:10→14:45)
[2024-07-05] MEDS: MAG-OX TAB PO SCH (08:11)
--- NOTE | 2024-07-05 10:19 | DR.H&P ---
H&P History & Physical for Day of: H&P Date: 07/05/24 Chief Complaint Chief Complaint: chest pain, SOB History of Present Illness History of Present Illness: Mr Vincent is a 39y/o male with a PMH of CHF, CAD, HTN, HLD, Type 2 DM, polysubstance abuse, Schizophrenia and anxiety presented with worsening chest pain, SOB and cough. He reports increased symptoms for the past 2 days. He has a hx of recurrent ER visits for cardiac symptoms and psychosis. He has been transferred to [facility] and [facility] due to elevated troponin and cardiomyopathy. He is currently in intermediate, reports taking his medications daily. He does not see a PCP or cardiology. Er work up showed Trop 106, 109, 111, K 3.3 Mag 1.6 BNP 916. CXR suggestive of CHF. EKG did not show any acute ST changes. Echo done March showed EF 15%. He was given IV lasix and admitted for further management. Labs/imaging reviewed: -WBC 7.4 Hgb 13.2 K 3.3 Mag 1.6 Trop 106, 109, 111 -COVID (-) -CXR: CHF changes -ECHO 03/25/24 < 20% Plan: Continue telemetry, wean O2 as tolerated. Add nebs. Check d-dimer. Start daily IV lasix, monitor I&Os, daily weight. Resume home medications. Replace electrolytes as per protocol. Monitor HR and BP. Monitor AM labs/imaging. Time spent for clinical assessment, reviewing labs/imaging, physical exam, decision making and documentation greater than 45 mins. Past Medical History Past Medical History: Anxiety, CHF, Diabetes and Schizophrenia Past Surgical History Surgical History: Ortho Surgery Family History Family Medical History: Cancer and Heart Failure Social History Does patient currently use any type of tobacco product: Yes Have you used tobacco products in the last 12 months: Yes Type of Tobacco Use: Cigarettes How many years tobacco product used: 20 Does any household member use tobacco: No Alcohol Use: Occasionally Drug Use: Methamphetamine Medications Home Medications: Home Medications Medication Instructions Recorded Confirmed Type aspirin 81 mg chewable tablet 81 mg PO QDAY 06/14/24 07/04/24 History budesonide-formoterol HFA 160 2 puff inhalation BID 06/14/24 06/14/24 History mcg-4.5 mcg/actuation aerosol inhaler carvedilol 6.25 mg tablet 6.25 mg PO BID 06/14/24 07/04/24 History divalproex 250 mg tablet,delayed 250 mg PO BID 06/14/24 07/04/24 History release furosemide 40 mg tablet 40 mg PO BID 06/14/24 07/04/24 History haloperidol 5 mg tablet 5 mg PO HS 06/14/24 07/04/24 History insulin glargine 100 unit/mL (3 15 unit subcut QPM 06/14/24 06/14/24 History mL) subcutaneous pen (Basaglar KwikPen U-100 Insulin) losartan 25 mg tablet 25 mg PO QDAY 06/14/24 07/04/24 History metoprolol tartrate 25 mg tablet 25 mg PO BID 06/14/24 07/04/24 History quetiapine 200 mg tablet 200 mg PO QPM 06/14/24 07/04/24 History spironolactone 25 mg tablet 25 mg PO QDAY 06/14/24 07/04/24 History baclofen 10 mg tablet 10 mg PO BID muscle spasm 07/04/24 07/04/24 History dapagliflozin propanediol 10 mg 10 mg PO QDAY 07/04/24 07/04/24 History tablet insulin aspart U-100 100 unit/mL 1 sliding scale dose subcut 07/04/24 07/04/24 History subcutaneous solution (Novolog USEASDIRECTD U-100 Insulin aspart) sertraline 100 mg tablet 100 mg PO DAILY 07/04/24 07/04/24 History sucralfate 1 gram tablet 1 g PO BID 07/04/24 07/04/24 History Allergies Allergies Allergy/AdvReac Type Severity Reaction Status Date / Time lisinopril Allergy Verified 06/21/24 01:44 Labs 07/05/24 04:18 07/05/24 04:18 Labs: Laboratory WBC 7.4 X10^3/uL (3.6-10.0) 07/05/24 04:18 RBC 5.15 X10^6/uL (4.7-6.0) 07/05/24 04:18 Hgb 13.2 g/dL (13.5-18.0) L 07/05/24 04:18 Hct 41.2 % (42.0-54.0) L 07/05/24 04:18 MCV 79.9 fL (80.0-100.0) L 07/05/24 04:18 MCH 25.5 pg (27.0-34.0) L 07/05/24 04:18 MCHC 32.0 g/dL (33.0-35.0) L 07/05/24 04:18 RDW 17.6 % (11.6-16.5) H 07/05/24 04:18 Plt Count 269 X10^3/uL (150.0-450.0) 07/05/24 04:18 MPV 8.9 fL (7.4-11.0) 07/05/24 04:18 Neut % (Auto) 62.2 % (42.0-75.0) 07/05/24 04:18 Lymph % (Auto) 28.2 % (21.0-51.0) 07/05/24 04:18 [place] % (Auto) 5.9 % (0.0-13.0) 07/05/24 04:18 Eos % (Auto) 3.1 % (0.9-2.9) H 07/05/24 04:18 Baso % (Auto) 0.6 % (0.2-1.0) 07/05/24 04:18 Neut # (Auto) 4.6 x10^3/uL (2.2-4.8) 07/05/24 04:18 Lymph # (Auto) 2.1 X10^3/uL (1.3-2.9) 07/05/24 04:18 [place] # (Auto) 0.4 x10^3/uL (0.3-0.8) 07/05/24 04:18 Eos # (Auto) 0.2 x10^3/uL (0.0-0.2) 07/05/24 04:18 Baso # (Auto) 0.0 X10^3/uL (0.0-0.1) 07/05/24 04:18 Absolute Nucleated RBC 0.1 /100WBC 07/05/24 04:18 PT 13.8 SECONDS (11.8-14.3) 07/04/24 15:05 INR Target Range - 07/04/24 15:05 INR 1.08 (0.8-1.3) 07/04/24 15:05 APTT 26.8 SECONDS (22.9-36.5) 07/04/24 15:05 PTT Comment - 07/04/24 15:05 Sodium 137 mmol/L (136-145) 07/05/24 04:18 Corrected Sodium 138 mmol/L (136-145) 07/05/24 04:18 Potassium 3.3 mmol/L (3.5-5.1) L 07/05/24 04:18 Chloride 102 mmol/L (98-107) 07/05/24 04:18 Carbon Dioxide 25.6 mmol/L (21-32) 07/05/24 04:18 BUN 9 mg/dL (7-18) 07/05/24 04:18 Creatinine 0.91 mg/dL (0.70-1.30) 07/05/24 04:18 Est GFR (MDRD) Af Amer > 60 (>60) 07/05/24 04:18 Est GFR (MDRD) Non-Af > 60 (>60) 07/05/24 04:18 Glucose 126 mg/dL (65-99) H 07/05/24 04:18 POC Glucose (mg/dL) 118 mg/dL (65-99) H 07/05/24 05:18 Calcium 8.0 mg/dL (8.5-10.1) L 07/05/24 04:18 Corrected Calcium 9.0 mg/dL (8.5-10.1) 07/05/24 04:18 Magnesium 1.6 mg/dL (2.0-2.9) L 07/05/24 04:18 Total Bilirubin 0.70 mg/dL (0.2-1.0) 07/05/24 04:18 AST 15 Units/L (15-37) 07/05/24 04:18 ALT 26 Units/L (12-78) 07/05/24 04:18 Alkaline Phosphatase 106 Units/L (46-116) 07/05/24 04:18 Creatine Kinase 109 Units/L (39-308) 07/04/24 20:20 Troponin I High Sens 111.2 ng/L (4.0-60.0) H* 07/04/24 20:20 B-Natriuretic Peptide 917 pg/mL (0-79) H 07/04/24 15:05 Total Protein 5.8 g/dL (6.4-8.2) L 07/05/24 04:18 Albumin 2.8 g/dL (3.4-5.0) L 07/05/24 04:18 Globulin 3.0 g/dL (2.5-4.5) 07/05/24 04:18 Albumin/Globulin Ratio 0.9 Ratio (1.1-2.1) L 07/05/24 04:18 Triglycerides 96 mg/dL (0-150) 07/05/24 04:18 Cholesterol 122 mg/dL (0-200) 07/05/24 04:18 LDL Cholesterol, Calc 64 mg/dL (0-100) 07/05/24 04:18 HDL Cholesterol 39 mg/dL (40-60) L 07/05/24 04:18 Cholesterol/HDL Ratio 3.1 (0.0-5.0) 07/05/24 04:18 Specimen Type Clean catch urine 07/04/24 19:23 Urine Color Yellow (YELLOW) 07/04/24 19:23 Urine Appearance Clear (CLEAR) 07/04/24 19:23 Urine pH 6.0 (5.0 - 8.0) 07/04/24 19:23 Ur Specific [place] 1.015 (1.000-1.030) 07/04/24 19:23 Urine Protein Negative (NEGATIVE) 07/04/24 19:23 Urine Glucose (UA) 2+ (NEGATIVE) 07/04/24 19:23 Urine Ketones Negative (NEGATIVE) 07/04/24 19:23 Urine Blood Negative (NEGATIVE) 07/04/24 19:23 Urine Nitrite Negative (NEGATIVE) 07/04/24 19:23 Urine Bilirubin Negative (NEGATIVE) 07/04/24 19:23 Urine Urobilinogen Normal (NORMAL) 07/04/24 19:23 Ur Leukocyte Esterase Negative (NEGATIVE) 07/04/24 19:23 SARS-CoV-2 (PCR) Negative (NEGATIVE) 07/04/24 14:47 Review of Systems Constitutional: No Symptoms Reported Eyes: No Symptoms Reported ENT: No Symptoms Reported Respiratory: Cough and SOB with Excertion Cardiovascular: Chest Pain Gastrointestinal: No Symptoms Reported Genitourinary: No Symptoms Reported Musculoskeletal: No Symptoms Reported Skin: No Symptoms Reported Neurological: No Symptoms Reported Physical Exam Vital Signs: Vital Signs Temperature 98.1 F Temperature 98.4 F Pulse Rate [Right Radial] 94 Pulse Rate [Right Radial] 91 Pulse Rate [Right Radial] 89 Pulse Rate [Right Radial] 91 Pulse Rate [Right Radial] 90 Pulse Rate [Right Radial] 92 Pulse Rate [Right Radial] 95 Respiratory Rate 24 Respiratory Rate 20 Respiratory Rate 18 Respiratory Rate 20 Respiratory Rate 17 Respiratory Rate 25 Respiratory Rate 12 Respiratory Rate 25 Blood Pressure [Left Arm] 142/95 Blood Pressure [Left Arm] 132/91 Blood Pressure [Left Arm] 126/79 Blood Pressure [Left Arm] 127/88 Blood Pressure [Left Arm] 125/77 Blood Pressure [Left Arm] 132/88 Blood Pressure [Left Arm] 130/90 O2 Sat by Pulse Oximetry 100 O2 Sat by Pulse Oximetry 97 O2 Sat by Pulse Oximetry 100 O2 Sat by Pulse Oximetry 100 O2 Sat by Pulse Oximetry 100 O2 Sat by Pulse Oximetry 96 O2 Sat by Pulse Oximetry 99 Oriented: Normal Eyes: Normal Respiratory: Clear Throughout Cardiovascular: Normal and Tachycardia Auscultation: Bowel Sounds: Normal Palpation: Normal Tenderness: Normal Skin: Normal Musculoskeletal: Normal Psychiatric: Normal Mood Description: Calm Affect: Normal Speech Pattern: Clear and Appropriate Assessment/Plan (1) CHF exacerbation: Qualifiers: Heart failure type: unspecified Qualified Code(s): I50.9 - Heart failure, unspecified Status: Acute (2) Elevated troponin: Status: Acute (3) Tachycardia: Status: Acute (4) Methamphetamine abuse: Status: Chronic (5) Cardiomyopathy: Qualifiers: Cardiomyopathy type: due to drug Qualified Code(s): I42.7 - Cardiomyopathy due to drug and external agent Status: Chronic (6) COPD (chronic obstructive pulmonary disease): Qualifiers: COPD type: unspecified COPD Qualified Code(s): J44.9 - Chronic obstructive pulmonary disease, unspecified Status: Chronic (7) Schizophrenia: Qualifiers: Schizophrenia type: unspecified Qualified Code(s): F20.9 - Schizophrenia, unspecified Status: Chronic
[2024-07-05] MEDS: ZOLOFT PO SCH (10:33)
[2024-07-05] MEDS: FARXIGA PO SCH (10:33)
[2024-07-05] MEDS: LASIX IVP SCH (10:33)
[2024-07-05] MEDS: DEPAKOTE D.R. TAB PO SCH (10:34)
[2024-07-05] MEDS: ASPIRIN 81 MG CHEWTAB PO SCH (10:34)
[2024-07-05] MEDS: COZAAR PO SCH (10:35)
[2024-07-05] MEDS: ALDACTONE TAB 25 MG PO SCH (10:35)
[2024-07-05] MEDS: ZOLOFT ONE (10:39)
[2024-07-05] MEDS: NovoLIN R (or HumuLIN R) SUBCUT PRN (11:31)
[2024-07-05] MEDS: DUONEB 0.5 MG/3 MG (3 mL) NEB SCH (13:30)
--- NOTE | 2024-07-05 14:14 | DR.CONSULT ---
CONSULT Consultation for Day of: Date: 07/05/24 Chief Complaint Chief Complaint: cp/sob Allergies Allergies Allergy/AdvReac Type Severity Reaction Status Date / Time lisinopril Allergy Verified 06/21/24 01:44 History of Present Illness History of Present Illness: 39 yo male w nonischemic cm- cath 05/26/24: no cad ef 25%, echo 05/23 24: ef 20-25%- states taking meds- admitted for cp/chf/elevated trops- troponins looking back : almost always elevated- bnp 900. 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, h/o meth use/abuse Past Medical History Past Medical History: Anxiety, CHF, Diabetes and Schizophrenia Past Surgical History Surgical History: Ortho Surgery Family History Family Medical History: Cancer and Heart Failure Social History Does patient currently use any type of tobacco product: Yes Have you used tobacco products in the last 12 months: Yes Type of Tobacco Use: Cigarettes How many years tobacco product used: 20 Does any household member use tobacco: No Alcohol Use: Occasionally Drug Use: Methamphetamine Medications Home Medications: lisinopril Allergy (Verified 06/21/24 01:44) CONTINUE taking the following medications baclofen 10 mg tablet 10 mg PO BID muscle spasm 07/04/24 [History] dapagliflozin propanediol 10 mg tablet 10 mg PO QDAY 07/04/24 [History] insulin aspart U-100 100 unit/mL subcutaneous solution (Novolog U-100 Insulin aspart) 1 sliding scale dose subcut USEASDIRECTD 07/04/24 [History] sertraline 100 mg tablet 100 mg PO DAILY 07/04/24 [History] sucralfate 1 gram tablet 1 g PO BID 07/04/24 [History] Physical Exam Vital Signs: Vital Signs Temperature 98.3 F Temperature 98.1 F Pulse Rate [Right Radial] 86 Pulse Rate [Right Radial] 87 Pulse Rate [Right Radial] 89 Pulse Rate [Right Radial] 87 Pulse Rate [Right Radial] 94 Pulse Rate [Right Radial] 91 Pulse Rate [Right Radial] 89 Pulse Rate 86 Respiratory Rate 22 Respiratory Rate 21 Respiratory Rate 15 Respiratory Rate 18 Respiratory Rate 24 Respiratory Rate 18 Respiratory Rate 20 Respiratory Rate 18 Respiratory Rate 20 Blood Pressure [Left Arm] 117/70 Blood Pressure [Left Arm] 113/81 Blood Pressure [Left Arm] 117/75 Blood Pressure [Left Arm] 118/71 Blood Pressure [Left Arm] 142/95 Blood Pressure [Left Arm] 132/91 Blood Pressure [Left Arm] 126/79 O2 Sat by Pulse Oximetry 100 O2 Sat by Pulse Oximetry 100 O2 Sat by Pulse Oximetry 100 O2 Sat by Pulse Oximetry 98 O2 Sat by Pulse Oximetry 100 O2 Sat by Pulse Oximetry 100 O2 Sat by Pulse Oximetry 97 O2 Sat by Pulse Oximetry 100 alert ox3 nad jvd few crackles rrr no sign edema labs:hct 41, bun/cr 9/0.9, k 3.3 cxr: chf bnp 917, trops 106-109-111 Plan (1) CHF exacerbation: Status: Acute Qualifiers: Heart failure type: unspecified Qualified Code(s): I50.9 - Heart failure, unspecified Narrative Support Text: nonischemic cm- recent cath 06/11 (2) Elevated troponin: Status: Acute Narrative Support Text: chronic (3) Tachycardia: Status: Acute (4) Methamphetamine abuse: Status: Chronic (5) Cardiomyopathy: Status: Chronic Qualifiers: Cardiomyopathy type: due to drug Qualified Code(s): I42.7 - Cardiomyopathy due to drug and external agent Plan: agree with iv diuresis- on arb/rica/farxiga- needs long acting BB when chf: meto succinate or coreg- will change tartrate to succinate
[2024-07-05] MEDS: SNACK - Diabetic Appropriate PO SCH (21:15)
[2024-07-05] MEDS: HALDOL PO SCH (21:32)
[2024-07-06 05:30] LABS: BASOPHILS # (AUTO) 0.1 X10^3/uL (0.0-0.1); BASOPHILS % (AUTO) 1.1 % (0.2-1.0); EOSINOPHILS # (AUTO) 0.2 x10^3/uL (0.0-0.2); EOSINOPHILS % (AUTO) 2.6 % (0.9-2.9); HEMATOCRIT 41.3 % (42.0-54.0); HEMOGLOBIN 13.3 g/dL (13.5-18.0); LYMPHOCYTES # (AUTO) 1.8 X10^3/uL (1.3-2.9); LYMPHOCYTES % (AUTO) 23.5 % (21.0-51.0); MEAN CORPUSCULAR HEMOGLOBIN 25.5 pg (27.0-34.0); MEAN CORPUSCULAR HGB CONC 32.2 g/dL (33.0-35.0); MEAN CORPUSCULAR VOLUME 79.4 fL (80.0-100.0); MONOCYTES # (AUTO) 0.4 x10^3/uL (0.3-0.8); MONOCYTES % (AUTO) 5.6 % (0.0-13.0); NEUTROPHILS # (AUTO) 5.1 x10^3/uL (2.2-4.8); NEUTROPHILS % (AUTO) 67.2 % (42.0-75.0); PLATELET COUNT 265 X10^3/uL (150.0-450.0); RED CELL DISTRIBUTION WIDTH 17.6 % (11.6-16.5); WHITE BLOOD COUNT 7.5 X10^3/uL (3.6-10.0)
[2024-07-06 05:47] LABS: ALANINE AMINOTRANSFERASE 23 Units/L (12-78); ALBUMIN 2.5 g/dL (3.4-5.0); ALKALINE PHOSPHATASE 100 Units/L (46-116); ASPARTATE AMINO TRANSFERASE 11 Units/L (15-37); BLOOD UREA NITROGEN 10 mg/dL (7-18); CALCIUM 8.2 mg/dL (8.5-10.1); CHLORIDE 104 mmol/L (98-107); COR CA(FOR HYPOALB) 9.4 mg/dL (8.5-10.1); COR NA(FOR HYPERGLY) 140 mmol/L (136-145); CREATININE 1.23 mg/dL (0.70-1.30); GLUCOSE 139 mg/dL (65-99); MAGNESIUM 1.7 mg/dL (2.0-2.9); POTASSIUM 3.9 mmol/L (3.5-5.1); SODIUM 139 mmol/L (136-145); TOTAL PROTEIN 5.7 g/dL (6.4-8.2); eGFR NON BLACK RACES > 60 (>60)
[2024-07-06] MEDS ORDERED: CONSULT PHARMACY - POTASSIUM & MAGNESIUM XX SCH (07:00)
[2024-07-06] MEDS: MILK OF MAGNESIA PO SCH (08:41)
[2024-07-06] MEDS: TOPROL XL PO SCH (08:42)
[2024-07-06] MEDS: ZOLOFT ONE (08:44)
[2024-07-06] MEDS ORDERED: OMNIPAQUE 350 mg/mL 100 mL BTL 100 ML ONE (09:43)
--- NOTE | 2024-07-06 10:07 | PCM.PROG ---
Progress Note Progress Note for Day of Date of Exam: 07/06/24 Subjective Subjective: Patient seen at bedside, no acute events overnight. He did have some runs of Vtach yesterday afternoon, asymptomatic. Dr Curran was consulted. Patient states he feels about the same. He is wearing 2L NC. He has been having good UOP. D-dimer is elevated. Labs/imaging reviewed: - WBC 7.5 Hgb 13.3 K 3.9 Mag 1.7 d-dimer 0.67 Plan: Continue telemetry and ICU care. Order CTA-chest to r/o PE. Wean O2 as tolerated. Monitor UOP, daily weights, strict I&Os. Follow cardio recommendations. Metoprolol tartrate changed to succinate. Continue other cardiac medications. Replace electrolytes as per protocol. Monitor AM labs/imaging. Time spent for clinical assessment, reviewing labs/imaging, physical exam, decision making and documentation greater than 45 mins. Past Medical Family Social History Allergies: Allergies lisinopril Allergy (Verified 06/21/24 01:44) Vital Signs and I&O's Vital Signs: Vital Signs Temperature 99.0 F Temperature 98.0 F Pulse Rate [Right Radial] 97 Pulse Rate [Right Radial] 96 Pulse Rate [Right Radial] 98 Pulse Rate [Right Radial] 92 Pulse Rate [Right Radial] 99 Pulse Rate [Right Radial] 89 Pulse Rate [Right Radial] 88 Pulse Rate [Right Radial] 88 Respiratory Rate 18 Respiratory Rate 16 Respiratory Rate 19 Respiratory Rate 16 Respiratory Rate 21 Respiratory Rate 19 Respiratory Rate 16 Respiratory Rate 16 Blood Pressure [Left Arm] 114/57 Blood Pressure [Left Arm] 121/67 Blood Pressure [Left Arm] 113/63 Blood Pressure [Left Arm] 105/62 Blood Pressure [Left Arm] 104/63 Blood Pressure [Left Arm] 91/55 Blood Pressure [Left Arm] 88/51 Blood Pressure [Left Arm] 86/49 O2 Sat by Pulse Oximetry 96 O2 Sat by Pulse Oximetry 92 O2 Sat by Pulse Oximetry 94 O2 Sat by Pulse Oximetry 95 O2 Sat by Pulse Oximetry 100 O2 Sat by Pulse Oximetry 94 O2 Sat by Pulse Oximetry 92 O2 Sat by Pulse Oximetry 91 Intake and Output: Intake & Output 07/03/24 07/04/24 07/05/24 07/06/24 23:59 23:59 23:59 23:59 Intake Total 560 / 560 2130 / 2130 490 / 490 Output Total 600 / 600 3600 / 3600 700 / 700 Balance -40 / -40 -1470 / -1470 -210 / -210 Physical Exam Oriented: Normal Eyes: Normal Throat: Normal Respiratory: Generalized and Diminished Cardiovascular: Normal and Tachycardia Auscultation: Bowel Sounds: Normal Palpation: Normal Tenderness: Normal Skin: Normal Musculoskeletal: Normal Psychiatric: Normal Mood Description: Calm Affect: Normal Speech Pattern: Clear and Appropriate Laboratory and Diagnostics 07/06/24 04:33 07/06/24 04:33 Labs: Laboratory WBC 7.5 X10^3/uL (3.6-10.0) 07/06/24 04:33 RBC 5.20 X10^6/uL (4.7-6.0) 07/06/24 04:33 Hgb 13.3 g/dL (13.5-18.0) L 07/06/24 04:33 Hct 41.3 % (42.0-54.0) L 07/06/24 04:33 MCV 79.4 fL (80.0-100.0) L 07/06/24 04:33 MCH 25.5 pg (27.0-34.0) L 07/06/24 04:33 MCHC 32.2 g/dL (33.0-35.0) L 07/06/24 04:33 RDW 17.6 % (11.6-16.5) H 07/06/24 04:33 Plt Count 265 X10^3/uL (150.0-450.0) 07/06/24 04:33 MPV 9.0 fL (7.4-11.0) 07/06/24 04:33 Neut % (Auto) 67.2 % (42.0-75.0) 07/06/24 04:33 Lymph % (Auto) 23.5 % (21.0-51.0) 07/06/24 04:33 [place] % (Auto) 5.6 % (0.0-13.0) 07/06/24 04:33 Eos % (Auto) 2.6 % (0.9-2.9) 07/06/24 04:33 Baso % (Auto) 1.1 % (0.2-1.0) H 07/06/24 04:33 Neut # (Auto) 5.1 x10^3/uL (2.2-4.8) H 07/06/24 04:33 Lymph # (Auto) 1.8 X10^3/uL (1.3-2.9) 07/06/24 04:33 [place] # (Auto) 0.4 x10^3/uL (0.3-0.8) 07/06/24 04:33 Eos # (Auto) 0.2 x10^3/uL (0.0-0.2) 07/06/24 04:33 Baso # (Auto) 0.1 X10^3/uL (0.0-0.1) 07/06/24 04:33 Absolute Nucleated RBC 0.1 /100WBC 07/06/24 04:33 PT 13.8 SECONDS (11.8-14.3) 07/04/24 15:05 INR Target Range - 07/04/24 15:05 INR 1.08 (0.8-1.3) 07/04/24 15:05 APTT 26.8 SECONDS (22.9-36.5) 07/04/24 15:05 PTT Comment - 07/04/24 15:05 D-Dimer 0.67 ug/ml (0.0-0.57) H 07/05/24 04:18 Sodium 139 mmol/L (136-145) 07/06/24 04:33 Corrected Sodium 140 mmol/L (136-145) 07/06/24 04:33 Potassium 3.9 mmol/L (3.5-5.1) 07/06/24 04:33 Chloride 104 mmol/L (98-107) 07/06/24 04:33 Carbon Dioxide 26.0 mmol/L (21-32) 07/06/24 04:33 BUN 10 mg/dL (7-18) 07/06/24 04:33 Creatinine 1.23 mg/dL (0.70-1.30) 07/06/24 04:33 Est GFR (MDRD) Af Amer > 60 (>60) 07/06/24 04:33 Est GFR (MDRD) Non-Af > 60 (>60) 07/06/24 04:33 Glucose 139 mg/dL (65-99) H 07/06/24 04:33 POC Glucose (mg/dL) 121 mg/dL (65-99) H 07/06/24 05:18 Calcium 8.2 mg/dL (8.5-10.1) L 07/06/24 04:33 Corrected Calcium 9.4 mg/dL (8.5-10.1) 07/06/24 04:33 Magnesium 1.7 mg/dL (2.0-2.9) L 07/06/24 04:33 Total Bilirubin 0.90 mg/dL (0.2-1.0) 07/06/24 04:33 AST 11 Units/L (15-37) L 07/06/24 04:33 ALT 23 Units/L (12-78) 07/06/24 04:33 Alkaline Phosphatase 100 Units/L (46-116) 07/06/24 04:33 Creatine Kinase 109 Units/L (39-308) 07/04/24 20:20 Troponin I High Sens 111.2 ng/L (4.0-60.0) H* 07/04/24 20:20 B-Natriuretic Peptide 917 pg/mL (0-79) H 07/04/24 15:05 Total Protein 5.7 g/dL (6.4-8.2) L 07/06/24 04:33 Albumin 2.5 g/dL (3.4-5.0) L 07/06/24 04:33 Globulin 3.2 g/dL (2.5-4.5) 07/06/24 04:33 Albumin/Globulin Ratio 0.8 Ratio (1.1-2.1) L 07/06/24 04:33 Triglycerides 96 mg/dL (0-150) 07/05/24 04:18 Cholesterol 122 mg/dL (0-200) 07/05/24 04:18 LDL Cholesterol, Calc 64 mg/dL (0-100) 07/05/24 04:18 HDL Cholesterol 39 mg/dL (40-60) L 07/05/24 04:18 Cholesterol/HDL Ratio 3.1 (0.0-5.0) 07/05/24 04:18 Specimen Type Clean catch urine 07/04/24 19:23 Urine Color Yellow (YELLOW) 07/04/24 19:23 Urine Appearance Clear (CLEAR) 07/04/24 19:23 Urine pH 6.0 (5.0 - 8.0) 07/04/24 19:23 Ur Specific [place] 1.015 (1.000-1.030) 07/04/24 19:23 Urine Protein Negative (NEGATIVE) 07/04/24 19:23 Urine Glucose (UA) 2+ (NEGATIVE) 07/04/24 19:23 Urine Ketones Negative (NEGATIVE) 07/04/24 19:23 Urine Blood Negative (NEGATIVE) 07/04/24 19:23 Urine Nitrite Negative (NEGATIVE) 07/04/24 19:23 Urine Bilirubin Negative (NEGATIVE) 07/04/24 19:23 Urine Urobilinogen Normal (NORMAL) 07/04/24 19:23 Ur Leukocyte Esterase Negative (NEGATIVE) 07/04/24 19:23 SARS-CoV-2 (PCR) Negative (NEGATIVE) 07/04/24 14:47 Plan (1) CHF exacerbation: Status: Acute Qualifiers: Heart failure type: unspecified Qualified Code(s): I50.9 - Heart failure, unspecified (2) Elevated troponin: Status: Acute (3) Tachycardia: Status: Acute (4) Methamphetamine abuse: Status: Chronic (5) Cardiomyopathy: Status: Chronic Qualifiers: Cardiomyopathy type: due to drug Qualified Code(s): I42.7 - Cardiomyopathy due to drug and external agent (6) Hypomagnesemia: Status: Acute
[2024-07-06] MEDS: MAG-OX TAB PO SCH (10:29)
[2024-07-06] MEDS: K-DUR TAB 20 MEQ PO SCH (10:29)
--- NOTE | 2024-07-06 10:59 | CT ---
EXAM:CTA chest with contrast for pulmonary embolusHISTORY:Elevated D-dimerTECHNIQUE:Axial postcontrast images with coronal and sagittal reformats. Three-dimensional maximum intensity projection images were obtained and evaluated. Dose reduction techniques were used with MA/kv adjusted for body size.COMPARISON:04/20/2024FINDINGS:There is no evidence for acute pulmonary thromboembolic disease. Examination of the mediastinum demonstrated no mediastinal mass, enlarged mediastinal or enlarged hilar adenopathy. There is some nonenlarged mediastinal adenopathy present and stable. No significant aortic abnormality identified. There is a moderate right pleural effusion present. Trace left pleural effusion is identified. Those portions of the upper abdominal organs visualized appeared within normal limits to the limitations of early arterial injection timing. No chest wall or axillary abnormality is identified examination of the lung becker demonstrated no pulmonary masses. Ground-glass and alveolar infiltrates are present in the anterior segment of the right upper lobe, in the anterior segment of the left upper lobe, and posteriorly in the right and left lower lobes. Findings suggest multifocal pneumonia. Subsegmental atelectasis is present peripherally in the right mid lung no significant pulmonary nodules are identified.IMPRESSION:No evidence for acute pulmonary thromboembolic diseaseMultifocal ground-glass and alveolar infiltrates as described above suspicious for developing multifocal pneumonia, less likely asymmetric edemaModerate right pleural effusion, trace left pleural effusionTHIS IS AN ELECTRONICALLY VERIFIED FINAL REPORT07/06/2024 10:56 AM - Electronically signed by Constantino Aguilar MD
[2024-07-06] MEDS: ZOSYN VIAL 3.375 GRAMS 3.375 G in NS 100 ML IV 100 ML IV SCH (13:01)
[2024-07-06] MEDS: PULMICORT NEB TX 0.5 MG NEB SCH (13:33)
[2024-07-06] MEDS: NS 250 ML IV 25 ML IV PRN (13:39)
[2024-07-06] MEDS: COLACE CAP 100 MG PO SCH (21:09)
[2024-07-07 04:55] LABS: BASOPHILS # (AUTO) 0.3 X10^3/uL (0.0-0.1); EOSINOPHILS # (AUTO) 0.2 x10^3/uL (0.0-0.2); HEMATOCRIT 41.1 % (42.0-54.0); HEMOGLOBIN 13.2 g/dL (13.5-18.0); LYMPHOCYTES # (AUTO) 1.5 X10^3/uL (1.3-2.9); LYMPHOCYTES % (AUTO) 20.8 % (21.0-51.0); MEAN CORPUSCULAR HEMOGLOBIN 25.4 pg (27.0-34.0); MEAN CORPUSCULAR VOLUME 79.2 fL (80.0-100.0); MEAN PLATELET VOLUME 8.5 fL (7.4-11.0); MONOCYTES # (AUTO) 0.3 x10^3/uL (0.3-0.8); MONOCYTES % (AUTO) 4.7 % (0.0-13.0); NEUTROPHILS # (AUTO) 4.9 x10^3/uL (2.2-4.8); NEUTROPHILS % (AUTO) 67.5 % (42.0-75.0); PLATELET COUNT 283 X10^3/uL (150.0-450.0); RED BLOOD COUNT 5.19 X10^6/uL (4.7-6.0); RED CELL DISTRIBUTION WIDTH 17.7 % (11.6-16.5); WHITE BLOOD COUNT 7.2 X10^3/uL (3.6-10.0)
[2024-07-07 05:09] LABS: ALANINE AMINOTRANSFERASE 24 Units/L (12-78); ALBUMIN 2.6 g/dL (3.4-5.0); ALKALINE PHOSPHATASE 105 Units/L (46-116); ASPARTATE AMINO TRANSFERASE 15 Units/L (15-37); BLOOD UREA NITROGEN 11 mg/dL (7-18); CALCIUM 8.5 mg/dL (8.5-10.1); CARBON DIOXIDE 28.3 mmol/L (21-32); CHLORIDE 105 mmol/L (98-107); COR CA(FOR HYPOALB) 9.6 mg/dL (8.5-10.1); CREATININE 1.14 mg/dL (0.70-1.30); GLUCOSE 105 mg/dL (65-99); MAGNESIUM 2.1 mg/dL (2.0-2.9); POTASSIUM 4.3 mmol/L (3.5-5.1); SODIUM 140 mmol/L (136-145); TOTAL PROTEIN 6.1 g/dL (6.4-8.2); eGFR NON BLACK RACES > 60 (>60)
[2024-07-07 08:13] VITALS: TEMP 98.4
[2024-07-07] MEDS: ZOLOFT ONE (08:43)
[2024-07-07 09:15] VITALS: BP 96/56; RESP 18
[2024-07-07 09:30] VITALS: PULSE 94; O2SAT 98
== END 2024-07-07 10:25 | disposition home or self-care (01) ==
LOC: ICU 14:12 → ER 14:12 → ICU 20:05
PROVIDERS: ADMIT Family Medicine; ATTEND Family Medicine
DX: R07.89 Other chest pain; E11.65 Type 2 diabetes mellitus with hyperglycemia; R79.89 Other specified abnormal findings of blood chemistry; F15.10 Other stimulant abuse, uncomplicated; J44.9 Chronic obstructive pulmonary disease, unspecified; R93.41 Abnormal radiologic findings on diagnostic imaging of renal pelvis, ureter, or bladder; I50.9 Heart failure, unspecified; R06.02 Shortness of breath; Z65.8 Other specified problems related to psychosocial circumstances; E83.42 Hypomagnesemia; I42.7 Cardiomyopathy due to drug and external agent; I11.0 Hypertensive heart disease with heart failure; R00.0 Tachycardia, unspecified; R79.1 Abnormal coagulation profile; Z20.822 Contact with and (suspected) exposure to COVID-19; F20.9 Schizophrenia, unspecified